=== PATIENT | male | born 1945 | race Caucasian/White ===

== ENCOUNTER → 2016-05-15 | Outpatient (CLI) | payer OTHER, MEDICARE | LOC: M WUC 14:21 | PROVIDERS: ATTEND Urology | DX: Z12.5 Encounter for screening for malignant neoplasm of prostate (principal) ==

== ENCOUNTER → 2016-06-24 | Outpatient (CLI) | payer OTHER, MEDICARE | LOC: M WUC 15:16 | PROVIDERS: ATTEND Surgery | DX: Z85.038 Personal history of other malignant neoplasm of large intestine (principal) ==

== ENCOUNTER → 2016-11-13 | Outpatient (CLI) | payer OTHER, MEDICARE | LOC: M WUC 14:25 | PROVIDERS: ATTEND Urology | DX: N40.0 Benign prostatic hyperplasia without lower urinary tract symptoms (principal) ==

== ENCOUNTER → 2016-12-22 | Outpatient (CLI) | payer OTHER, MEDICARE ==
[2016-12-22 13:44] LABS: MEAN CORPUSCULAR HEMOGLOBIN 30.5 pg (27.0-33.0); MEAN CORPUSCULAR HGB CONC 31.4 g/dl (32.0-36.5); MEAN CORPUSCULAR VOLUME 97.4 fl (80.0-96.0); RED CELL DISTRIBUTION WIDTH 14.2 % (11.5-14.5); WHITE BLOOD COUNT 11.7 10^3/uL (4.0-10.0)
[2016-12-22 13:59] LABS: ANION GAP 4 MEQ/L (8-16); AST/SGOT 16 U/L (15-37); BLOOD UREA NITROGEN 22 MG/DL (7-18); CALCIUM LEVEL 9.5 MG/DL (8.8-10.2); CARBON DIOXIDE LEVEL 32 MEQ/L (21-32); CHLORIDE LEVEL 107 MEQ/L (98-107); CREATININE FOR GFR 1.32 MG/DL (0.70-1.30); FOLATE > 24.0 NG/ML (>5.4); GLOMERULAR FILTRATION RATE 57.3 (>49); GLUCOSE, FASTING 157 MG/DL (80-110); POTASSIUM SERUM 4.8 MEQ/L (3.5-5.1); SODIUM LEVEL 143 MEQ/L (136-145); VITAMIN B12 LEVEL 625 PG/ML (247-911)
[2016-12-22 14:00] LABS: ALBUMIN 3.2 GM/DL (3.2-5.2); ALBUMIN/GLOBULIN RATIO 0.84 (1.00-1.93); ALKALINE PHOSPHATASE 89 U/L (45-117); ALT/SGPT 22 U/L (12-78); BILIRUBIN,TOTAL 0.5 MG/DL (0.2-1.0); CHOLESTEROL LEVEL 169 MG/DL (<200); FREE T4 0.94 NG/DL (0.76-1.46); MAGNESIUM LEVEL 1.7 MG/DL (1.8-2.4); TRIGLYCERIDES LEVEL 146 MG/DL (<150); URIC ACID 4.9 MG/DL (3.5-7.2)
== END ==
LOC: M WUC 09:45
PROVIDERS: ATTEND Internal Medicine Cardiovascular Disease
DX: E11.9 Type 2 diabetes mellitus without complications (principal); I10 Essential (primary) hypertension; E78.5 Hyperlipidemia, unspecified; I85.00 Esophageal varices without bleeding

== ENCOUNTER → 2017-01-07 | Outpatient (CLI) | payer OTHER, MEDICARE | LOC: M WUC 14:17 | PROVIDERS: ATTEND Surgery | DX: C18.9 Malignant neoplasm of colon, unspecified (principal) ==

== ENCOUNTER → 2017-06-18 | Outpatient (CLI) | payer OTHER, MEDICARE ==
[2017-06-18 16:57] LABS: CARCINOEMBRYONIC ANTIGEN < 0.5 NG/ML (<2.5)
== END ==
LOC: M WUC 11:04
DX: C18.6 Malignant neoplasm of descending colon (principal)
CPT/HCPCS: 82378

== ENCOUNTER → 2017-07-26 | Outpatient (CLI) | payer OTHER, MEDICARE ==
[2017-07-26 12:09] LABS: HEMATOCRIT 39.4 % (42.0-52.0); HEMOGLOBIN 12.8 g/dl (13.5-17.5); MEAN CORPUSCULAR HEMOGLOBIN 31.2 pg (27.0-33.0); MEAN CORPUSCULAR HGB CONC 32.5 g/dl (32.0-36.5); MEAN CORPUSCULAR VOLUME 96.1 fl (80.0-96.0); PLATELET COUNT, AUTOMATED 274 10^3/uL (150-450); RED CELL DISTRIBUTION WIDTH 13.5 % (11.5-14.5); WHITE BLOOD COUNT 11.7 10^3/uL (4.0-10.0)
[2017-07-26 12:23] LABS: ESTIMATED AVERAGE GLUCOSE 151 MG/DL (60-110); HEMOGLOBIN A1c 6.9 %
[2017-07-26 12:24] LABS: APPEARANCE, URINE HAZY (CLEAR); BACTERIA, URINE AUTO NEGATIVE (NEGATIVE); BILIRUBIN, URINE AUTO NEGATIVE (NEGATIVE); BLOOD, URINE BLOOD NEGATIVE (NEGATIVE); CALCIUM OXALATE CRYSTALS SMALL; COLOR, URINE YELLOW (YELLOW); GLUCOSE, URINE (UA) AUTO NEGATIVE (NEGATIVE); KETONE, URINE AUTO NEGATIVE (NEGATIVE); LEUKOCYTE ESTERASE, URINE AUTO NEGATIVE (NEGATIVE); MUCUS, URINE SMALL (NEGATIVE); NITRITE, URINE AUTO POSITIVE (NEGATIVE); PROTEIN, URINE AUTO 1+ mg/dL (NEGATIVE); RBC, URINE AUTO 0 /HPF (0-3); SPECIFIC GRAVITY URINE AUTO 1.024 (1.002-1.035); SQUAMOUS EPITHELIAL CELL UR AU 1 /HPF (0-6); UROBILINOGEN, URINE AUTO 0.2 mg/dL (0.0-2.0); WBC, URINE AUTO 9 /HPF (0-3)
[2017-07-26 12:54] LABS: ALBUMIN 3.1 GM/DL (3.2-5.2); ALBUMIN/GLOBULIN RATIO 0.79 (1.00-1.93); ALKALINE PHOSPHATASE 87 U/L (45-117); ALT/SGPT 20 U/L (12-78); ANION GAP 8 MEQ/L (8-16); AST/SGOT 20 U/L (7-37); BILIRUBIN,TOTAL 0.5 MG/DL (0.2-1.0); BLOOD UREA NITROGEN 20 MG/DL (7-18); CALCIUM LEVEL 9.1 MG/DL (8.8-10.2); CARBON DIOXIDE LEVEL 28 MEQ/L (21-32); CHLORIDE LEVEL 106 MEQ/L (98-107); CHOLESTEROL LEVEL 172 MG/DL (<200); CHOLESTEROL RISK RATIO 2.915 (<5); CREATININE FOR GFR 1.19 MG/DL (0.70-1.30); GLOMERULAR FILTRATION RATE > 60.0 (>49); GLUCOSE, FASTING 162 MG/DL (70-100); HDL CHOLESTEROL 59 MG/DL (>40); NON-HDL-C 113 MG/DL; POTASSIUM SERUM 4.4 MEQ/L (3.5-5.1); SODIUM LEVEL 142 MEQ/L (136-145); TRIGLYCERIDES LEVEL 180 MG/DL (<150)
== END ==
LOC: M WUC 10:21
DX: D64.9 Anemia, unspecified (principal); E78.00 Pure hypercholesterolemia, unspecified; E03.9 Hypothyroidism, unspecified
CPT/HCPCS: 84443

== ENCOUNTER → 2017-11-30 | Outpatient (CLI) | payer OTHER, MEDICARE ==
[2017-12-03 00:07] LABS: PSA TOTAL 0.1 ng/mL (0.0-4.0)
== END ==
LOC: M WUC 11:03
DX: N40.0 Benign prostatic hyperplasia without lower urinary tract symptoms (principal)
CPT/HCPCS: 84154

== ENCOUNTER → 2017-12-23 | Outpatient (CLI) | payer OTHER, MEDICARE ==
[2017-12-24 11:08] LABS: CARCINOEMBRYONIC ANTIGEN 0.7 NG/ML (<2.5)
== END ==
LOC: M WUC 14:47
DX: C18.9 Malignant neoplasm of colon, unspecified (principal)
CPT/HCPCS: 82378

== ENCOUNTER 2018-07-22 15:57 | Inpatient (IN) | payer MEDICARE, OTHER ==
[~2018-07-22] VITALS: Ht 193 cm; Wt 184.4 kg
[2018-07-22 16:45] LABS: BASO # 0.1 10^3/uL (0.0-0.2); BASO % 0.7 % (0.0-1.0); EOS # 0.5 10^3/uL (0.0-0.50); EOS % 3.4 % (0.0-3.0); HEMATOCRIT 39.9 % (42.0-52.0); LYMPH # 3.1 10^3/uL (1.5-4.5); LYMPH % 22.5 % (24.0-44.0); MEAN CORPUSCULAR HEMOGLOBIN 31.9 pg (27.0-33.0); MEAN CORPUSCULAR HGB CONC 32.6 g/dl (32.0-36.5); MEAN CORPUSCULAR VOLUME 97.8 fl (80.0-96.0); MONO # 0.8 10^3/uL (0.0-0.8); NEUTROPHILS # 9.3 10^3/uL (1.8-7.7); NEUTROPHILS % 66.8 % (36.0-66.0); PLATELET COUNT, AUTOMATED 307 10^3/uL (150-450); RED BLOOD COUNT 4.08 10^6/uL (4.30-6.10); WHITE BLOOD COUNT 13.9 10^3/uL (4.0-10.0)
[2018-07-22] MEDS: NS 1,000 ML IV SCH ×2 (16:47→23:35)
[2018-07-22 16:48] LABS: VENOUS BASE EXCESS -2.6 (-2.0-2.0); VENOUS HCO3 23.7 MEQ/L (23.0-27.0); VENOUS O2 SATURATION 98.6 % (60.0-80.0); VENOUS PARTIAL PRESSURE CO2 46.6 mmHg (38.0-50.0); VENOUS PARTIAL PRESSURE O2 139.3 mmHg (30.0-50.0); VENOUS PH 7.324 UNITS (7.330-7.430); VENOUS STANDARD HCO3 22.4 MEQ/L; VENOUS TOTAL CO2 25.1 MEQ/L (24.0-28.0)
[2018-07-22] MEDS ORDERED: ONDANSETRON 4MG/2ML VIAL (J2405) IV ONE (17:00)
[2018-07-22] MEDS ORDERED: NS 1,000 ML IV ONE (17:00)
--- NOTE | 2018-07-22 17:16 | REP ---
CT Head without contrast HISTORY: Nausea COMPARISON: None Areas of decreased attenuation are present in the periventricular white matter. This represents small-vessel ischemic disease. There is no intraparenchymal hemorrhage, acute infarct, mass or midline shift. The ventricular system and cortical sulci are dilated consistent with minimal volume loss. There is no extra cerebral collection. There is no fracture. Mucosal thickening is present in the left sphenoid sinus. IMPRESSION: 1. Small vessel ischemic disease. 2. Minimal volume loss. Electronically Signed by Garret Carrillo MD 07/22/2018 05:07 P
[2018-07-22 17:17] LABS: ALBUMIN 3.1 GM/DL (3.2-5.2); ALT/SGPT 21 U/L (12-78); BILIRUBIN,DIRECT 0.2 MG/DL (0.0-0.2); BILIRUBIN,TOTAL 0.5 MG/DL (0.2-1.0); BLOOD UREA NITROGEN 22 MG/DL (7-18); CALCIUM LEVEL 8.8 MG/DL (8.8-10.2); CARBON DIOXIDE LEVEL 27 MEQ/L (21-32); CHLORIDE LEVEL 105 MEQ/L (98-107); CREATININE FOR GFR 1.22 MG/DL (0.70-1.30); GLOMERULAR FILTRATION RATE > 60.0 (>42); GLUCOSE, FASTING 245 MG/DL (70-100); LIPASE 140 U/L (73-393); POTASSIUM SERUM 4.5 MEQ/L (3.5-5.1); SODIUM LEVEL 139 MEQ/L (136-145); TOTAL PROTEIN 7.4 GM/DL (6.4-8.2)
--- NOTE | 2018-07-22 17:31 | REP ---
Chest one-view HISTORY: Nausea Comparison: 12/25/2015 An increase in interstitial markings is present in the lungs consistent with chronic interstitial change. The heart is normal in size. The pulmonary vasculature is normal in appearance. Impression: Chronic interstitial change. Electronically Signed by Garret Carrillo MD 07/22/2018 05:23 P
[2018-07-22] MEDS ORDERED: ISOVUE-370 76% 100ML VIAL (Q9967) As Ordered ONE (17:51)
--- NOTE | 2018-07-22 19:33 | REPVR ---
EXAM: CT Angiography Chest With Contrast EXAM DATE/TIME: 07/22/2018 6:14 PM CLINICAL HISTORY: 72 years old, male; Signs and symptoms; Other: Hypoxia; Patient HX: HX pe TECHNIQUE: Imaging protocol: Axial computed tomographic angiography images of the chest with intravenous contrast using CT angiography protocol. Coronal and sagittal reformatted images were created and reviewed. 3D rendering: MIP reconstructed images were created and reviewed. Radiation optimization: All CT scans at this facility use at least one of these dose optimization techniques: automated exposure control; mA and/or kV adjustment per patient size (includes targeted exams where dose is matched to clinical indication); or iterative reconstruction. Contrast material: ISOVUE 370; Contrast volume: 100 ml; Contrast route: IV; COMPARISON: CR PORTABLE CHEST X-RAY 07/22/2018 5:01 PM FINDINGS: Pulmonary arteries: Normal. No pulmonary emboli. Aorta: Normal. No aortic aneurysm. No aortic dissection. Lungs: Calcified granuloma in the anterior segment of the right upper lobe. Mosaic perfusion abnormality seen diffusely in both lungs. Scattered thickening of the interlobular septa bilaterally particularly at the lung bases. Pleural space: Calcified pleural plaques are noted bilaterally. Heart: Coronary artery calcifications present. Liver: The liver surface is nodular. Gallbladder and bile ducts: Gallstones is seen in the gallbladder. Spleen: Multiple calcified granulomas in the spleen. Lymph nodes: Unremarkable. No enlarged lymph nodes. Bones/joints: Unremarkable. No acute fracture. Soft tissues: Unremarkable. Kidneys: 1.7 cm nonobstructing calculus in the midportion of the right kidney Vascular: Stent is suggested in the superior mesenteric artery IMPRESSION: 1. No acute pulmonary emboli. 2. Asbestos-related pleural disease. 3. Mild interstitial lung disease could represent early asbestosis. 4. Mosaic perfusion abnormality noted in both lungs. Differential diagnostic considerations include air trapping, chronic venoocclusive disease and bronchiolitis 5. Gallstones. 6. Nodular liver suggest cirrhosis. 7. 1.7 cm nonobstructing calculus in the right kidney Electronically signed by: Sofia Reid On 07/22/2018 19:33:27 PM
--- NOTE | 2018-07-22 19:43 | REPVR ---
EXAM: CT Abdomen and Pelvis With Contrast EXAM DATE/TIME: 07/22/2018 6:14 PM CLINICAL HISTORY: 72 years old, male; Signs and symptoms; Other: Hypoxia TECHNIQUE: Imaging protocol: Axial computed tomography images of the abdomen and pelvis with intravenous contrast. Coronal and sagittal reformatted images were created and reviewed. Radiation optimization: All CT scans at this facility use at least one of these dose optimization techniques: automated exposure control; mA and/or kV adjustment per patient size (includes targeted exams where dose is matched to clinical indication); or iterative reconstruction. Contrast material: ISOVUE 370; Contrast volume: 100 ml; Contrast route: IV; COMPARISON: No relevant prior studies available. FINDINGS: Lungs: Thickening of the interlobular septa at the lung bases. Pleural space: Bilateral pleural calcifications noted. ABDOMEN: Liver: The liver surface is nodular. Gallbladder and bile ducts: Gallstones are seen in the gallbladder. Pancreas: Normal. No ductal dilation. Spleen: Calcified granulomas is seen in the spleen. Adrenals: Normal. No mass. Kidneys and ureters: 1.9 cm calcification seen in the upper right kidney. No hydronephrosis. 1.5 cm simple cyst in the lower pole of the left kidney. Stomach and bowel: Normal. No obstruction. No mucosal thickening. Appendix: No evidence of appendicitis. PELVIS: Bladder: Unremarkable as visualized. Reproductive: Unremarkable as visualized. ABDOMEN and PELVIS: Intraperitoneal space: Normal. No free air. No significant fluid collection. Bones/joints: No acute fracture. No dislocation. Soft tissues: There is an umbilical hernia containing fat. The hernia measures 1.6 cm at its base with no evidence of strangulation. There is a fluid collection noted within the anterior abdominal wall beginning at approximately the level of the symphysis pubis measuring 9.5 x 6 x 8.1 cm.. The fluid collection has a density measurement of 35H. There is thickening of the overlying skin and a small amount of inflammatory change within the fat anterior and to the right of the mass. Vasculature: Normal. No abdominal aortic aneurysm. Lymph nodes: Normal. No enlarged lymph nodes. IMPRESSION: 1. Loculated hyperdense fluid collection noted in the subcutaneous fat of the lower abdominal wall at the level of the symphysis pubis. This could represent an old hematoma/seroma. Infection not excluded. 2. Nodular liver suggest cirrhosis. 3. 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 4. Nonobstructing calculus in the right kidney. 5. Simple cysts in left kidney. 6. Gallstones. COMMENT: Consistent with the [employer]'s Incidental Findings Committee Report (J Am Vicky Radiol 2010): Unless the patient's specific circumstances suggest otherwise, any liver lesion 0.5 cm or less, any cystic kidney lesion less than 1.0 cm, and/or any adrenal lesion 1.0 cm or less not otherwise characterized in this report as possessing suspicious or indeterminate imaging features is/are highly likely to be benign and do not require follow-up imaging or biopsy. Electronically signed by: Sofia Reid On 07/22/2018 19:43:10 PM
[2018-07-22 20:15] LABS: INFLUENZA A AMPLIFICATION NEGATIVE (NEGATIVE); INFLUENZA B AMPLIFICATION NEGATIVE (NEGATIVE)
[2018-07-22] MEDS: DABIGATRAN ETEXILATE 75 MG CAP (PRADAXA) PO SCH (21:00)
[2018-07-22] MEDS ORDERED: GLUCAGON FOR INJ 1 MG VIAL (J1610) SC PRN (21:30)
[2018-07-22] MEDS ORDERED: DEXTROSE 50% 50 ML SYRINGE IV PRN (21:30)
[2018-07-22] MEDS ORDERED: GLUCOSE 4 GM CHEW TABLET PO PRN (21:30)
[2018-07-22] MEDS ORDERED: PANT40TA3 PO (21:58)
[2018-07-22] MEDS ORDERED: PREG100CA PO (21:58)
[2018-07-22] MEDS ORDERED: ACET500T15 PO (21:58)
[2018-07-22] MEDS ORDERED: LOSA100T50 PO (21:58)
[2018-07-22] MEDS ORDERED: PRAV20TA2 PO (21:58)
[2018-07-22] MEDS ORDERED: SPIR1CAP INH (21:58)
[2018-07-22] MEDS ORDERED: KLOR10TA76 PO (21:58)
[2018-07-22] MEDS ORDERED: ATEN100T PO (21:58)
[2018-07-22] MEDS ORDERED: METF500T13 PO (21:58)
[2018-07-22] MEDS ORDERED: GLIM4TAB PO (21:58)
[2018-07-22] MEDS ORDERED: HUMA100I5 SC (21:58)
[2018-07-22] MEDS ORDERED: FLOM0.4C39 PO (21:58)
[2018-07-22] MEDS ORDERED: JANU100T PO (21:58)
[2018-07-22] MEDS ORDERED: PROB500T29 PO (21:58)
[2018-07-22] MEDS ORDERED: FINA5TAB2 PO (21:58)
[2018-07-22] MEDS ORDERED: LANTINJ4 SC (21:58)
[2018-07-22] MEDS ORDERED: PRAD75CA5 PO (21:58)
[2018-07-22] MEDS ORDERED: ZOLO100T PO (21:58)
[2018-07-22] MEDS ORDERED: NORV5TAB PO (21:58)
[2018-07-22 22:00] VITALS: BP 140/78
[2018-07-22] MEDS: HumaLOG INSULIN (NovoLOG) PER UNIT SC SCH (23:29)
[2018-07-23] MEDS ORDERED: ACETAMINOPHEN 500 MG TAB PO PRN (02:15)
[2018-07-23] MEDS: PANTOPRAZOLE 40MG TAB (PROTONIX) PO SCH ×2 (02:51→20:51)
[2018-07-23] MEDS: FINASTERIDE 5 MG TAB PO SCH ×2 (02:51→20:51)
[2018-07-23] MEDS: TAMSULOSIN 0.4 MG CAP PO SCH ×2 (02:51→20:51)
[2018-07-23] MEDS: PREGABALIN 100 MG CAP (LYRICA) PO SCH ×3 (02:51→20:51)
[2018-07-23] MEDS: amLODIPine 5 MG TAB PO SCH ×2 (02:54→20:52)
[2018-07-23 05:23] VITALS: O2SAT 98
[2018-07-23 06:00] VITALS: BP 141/68
--- NOTE | 2018-07-23 06:40 | ECGEPIP ---
Stationary ECG Study [facility] - ED Test Date: 2018-07-22 Pat Name: JENNIFER ABRAMS Department: Room: - Gender: M Hand Blocker: pmo : 1945 Requested By: Dinorah Avery Order Number: [id number] Reading MD: Sloane Canales Measurements Intervals [place] Rate: 68 P: UT: 0 QRS: 39 QRSD: 110 T: 47 QT: 414 QTc: 441 Interpretive Statements ATRIAL FIBRILLATION ABNORMAL RHYTHM NONSPECIFIC ST T WAVE CHANGES NO OLD ECG FOR COMPARISON Electronically Signed On 07-23-2018 6:39:49 EDT by Sloane Canales
[2018-07-23 07:09] LABS: HEMATOCRIT 36.1 % (42.0-52.0); HEMOGLOBIN 11.4 g/dl (13.5-17.5); MEAN CORPUSCULAR HEMOGLOBIN 31.5 pg (27.0-33.0); MEAN CORPUSCULAR HGB CONC 31.6 g/dl (32.0-36.5); MEAN CORPUSCULAR VOLUME 99.7 fl (80.0-96.0); PLATELET COUNT, AUTOMATED 267 10^3/uL (150-450); RED BLOOD COUNT 3.62 10^6/uL (4.30-6.10); WHITE BLOOD COUNT 13.8 10^3/uL (4.0-10.0)
[2018-07-23 07:27] LABS: ALBUMIN 2.9 GM/DL (3.2-5.2); ALT/SGPT 18 U/L (12-78); BILIRUBIN,TOTAL 0.4 MG/DL (0.2-1.0); BLOOD UREA NITROGEN 20 MG/DL (7-18); CALCIUM LEVEL 8.4 MG/DL (8.8-10.2); CARBON DIOXIDE LEVEL 28 MEQ/L (21-32); CHLORIDE LEVEL 107 MEQ/L (98-107); CREATININE FOR GFR 1.19 MG/DL (0.70-1.30); GLOMERULAR FILTRATION RATE > 60.0 (>42); GLUCOSE, FASTING 187 MG/DL (70-100); POTASSIUM SERUM 4.4 MEQ/L (3.5-5.1); SODIUM LEVEL 140 MEQ/L (136-145)
[2018-07-23 08:36] LABS: ERYTHROCYTE SEDIMENTATION RATE 50 mm/hr (0-20)
[2018-07-23] MEDS: HumaLOG INSULIN (NovoLOG) PER UNIT SC SCH ×4 (08:58→20:52)
[2018-07-23] MEDS: SERTRALINE 100 MG TAB PO SCH (08:59)
[2018-07-23] MEDS: DABIGATRAN ETEXILATE 75 MG CAP (PRADAXA) PO SCH ×2 (08:59→20:51)
[2018-07-23] MEDS ORDERED: PRAVASTATIN 20 MG TAB PO SCH (09:00)
[2018-07-23] MEDS: LOSARTAN 50 MG TAB PO SCH (09:02)
[2018-07-23] MEDS: ATENOLOL 50 MG TAB PO SCH (09:02)
[2018-07-23] MEDS ORDERED: ONDANSETRON 4MG/2ML VIAL (J2405) IV PRN (09:30)
[2018-07-23] MEDS: NS 1,000 ML IV SCH ×3 (09:33→17:23)
[2018-07-23] MEDS: METOCLOPRAMIDE INJ 10MG/2ML VIAL (J2765) IV PRN (10:38)
[2018-07-23] MEDS: TIOTROPIUM INHALER/CAPSULE (SPIRIVA) INH SCH (11:27)
[2018-07-23 11:29] VITALS: O2SAT 93
--- NOTE | 2018-07-23 13:29 | HPE ---
DATE OF ADMISSION: 07/22/2018 CHIEF COMPLAINT: Episode of confusion. HISTORY OF PRESENTING ILLNESS: 72-year-old gentleman with multiple comorbidities who was brought to emergency department for complaint of one episode of confusion. Patient was having lunch while sitting in a recliner, suddenly he felt that he was feeling hot, his noticed that his color was turning pale after that patient was confused and was not able to answer any question. During this episode, patient stated that he had episode of blurry vision and he felt that his gait was unsteady when he tried to walk to the restroom. There was no other associated symptom. In the emergency room (ER), patient was found with vitals of temperature 98.0, heart rate 76, blood pressure 164/74, respiratory rate 16, and SpO2 89 that improved with 1 liter of supplemental oxygen to 94%. CT head did not show any acute pathology. Chest x-ray did not show any acute pathology. CT chest did not show any acute pathology. CT abdomen and pelvis was suggestive of subcutaneous fluid collection of the lower anterior abdominal wall. In the emergency room, patient was found vomiting and he had three episodes of vomiting that resolved with Zofran. Hospitalist service was consulted to admit the patient for further management and observation. Patient was seen and examined at bedside. Patient was resting comfortably in the bed. at bedside. Patient stated that he is feeling fine and his complaint of generalized weakness, nausea, vomiting, blurry vision, unsteady gait, and malaise has completely resolved. At the time of examination, patient did not have any physical complaint. PAST MEDICAL HISTORY: 1. Hypertension. 2. Hyperlipidemia. 3. BPH. 4. Diabetes mellitus, type 2. 5. Peripheral neuropathy. 6. Depression. 7. Anxiety. 8. Panic attacks. 9. Chronic obstructive pulmonary disease (COPD). 10. Gastroesophageal reflux disease (GERD). 11. Gout. 12. Obesity. 13. Pulmonary embolism on oral Pradaxa. PAST SURGICAL HISTORY: 1. Bilateral inguinal hernia repair. 2. Cardiac catheterization. As per patient, his coronary arteries were clean and he did not require any stent placement and it was done for episode of questionable shortness of breath and chest pain. 3. Colon cancer. Patient did not require any chemo or radiation therapy, and he is on surveillance colonoscopy. Patient had colon resection in 2014. 4. Left ankle surgery after an injury that have plate and screws in place. 5. cysto urethrotomy ALLERGIES: NO KNOWN DRUG ALLERGIES. HOME MEDICATIONS: Reviewed. Please refer to permanent medical record. SOCIAL HISTORY: Former smoker, denied alcohol intake or illicit drug abuse, independent for activities of daily living, lives with . FAMILY HISTORY: Reviewed. Noncontributory. REVIEW OF SYSTEMS: 10-point review of system was performed and it was negative except as per history of present illness (HPI). PHYSICAL EXAMINATION: GENERAL: Comfortable, not in acute distress. HEENT: Bilateral pupils equal, round, reactive to light and accommodation. Oral mucosa moist. NECK: Supple. RESPIRATORY SYSTEM: Clear to auscultation but bilateral decreased breath sounds. No added sounds CARDIOVASCULAR SYSTEM: Regular rate and rhythm. S1, S2 positive. ABDOMEN: Obese abdomen. Soft. Nontender. EXTREMITIES: Bilateral lower extremity pitting pedal edema, chronic venous stasis changes. SKIN: No rash noted. CENTRAL NERVOUS SYSTEM: No focal deficit. Patient alert and oriented to time, place and person. Gait normal. PSYCHIATRIC: Mood normal. Laboratory tests reviewed. White count 13.9, hemoglobin 13.0, platelets 307. Sodium 139, potassium 4.5, BUN 22, creatinine 1.22, blood glucose 245, lactic acid 2.1. Imaging studies reviewed. Urinalysis (UA) not a clean catch. ASSESSMENT: 72-year-old gentleman was brought to emergency department for complaint of one episode of generalized malaise, confusion associated with nausea and three episodes of vomiting. When patient came to the emergency department, he was found hypoxic with SpO2 of 89. Patient was placed on supplemental oxygen and given IV Zofran. After that all symptoms resolved. While examining the patient at bedside in emergency department off oxygen, patient 's oxygen saturation dropped to mid 80s. Patient stated that he does have history of obstructive sleep apnea and uses continuous positive airway pressure (CPAP), but he did not have any recent sleep study or any studies regarding evaluation for requirement of supplemental oxygen. Patient might have had one episode of transient ischemic attack (TIA) that might be related to chronic hypoxia. IMPRESSION: Questionable episode of transient ischemic attack. PLAN: 1. TIA: Neuro checks. 2. We will consider imaging studies depending on clinical course over next 24 hours. Patient had imaging studies with IV contrast. We cannot repeat any studies with contrast at this time. 3. Patient's weight is more than the weight limit of MRI machine. We cannot perform any MRI study, and he also has metal and screws in place in left ankle. 4. History of obstructive sleep apnea: Will continue CPAP. 5. Chronic hypoxic respiratory failure: Patient might have chronic hypoxic respiratory failure secondary to COPD and NAHUM; he did not have any recent studies for that. Will continue supplemental oxygen. 6. Diabetes mellitus, type 2: Insulin sliding scale and home insulin. 7. Hypertension: Home medication. 8. BPH: Home medication. 9. Obesity: Supportive care. 10. Hyperlipidemia: Home medication. 11. Peripheral neuropathy: Home medication. 12. Depression: Home medication. 13. COPD: Home medication. 14. GERD: Home medication. 15. Gout: Home medication. 16. Subcutaneous fluid collection in the lower abdominal wall: ER discussed with on-call surgery team. No acute intervention required at this time. Outpatient followup was recommended. We discussed this with the patient and patient stated that he would like to followup with his own surgeon, Dr. Eulalio Flores. He does have a followup appointment with Dr. Flores on 08/02/2018. 17. Colon cancer: Patient to followup with his primary medical doctor regarding continuation of screening colonoscopy. TABBY
[2018-07-23 14:00] VITALS: BP 175/79
--- NOTE | 2018-07-23 14:04 | IPNPDOC ---
Date Seen The patient was seen on 07/23/18. Progress Note SUBJECTIVE:Patient severely weak and slide down to the floor with the help of the staffs after BM. No diarrhea. Complaints of N/V. Patient's who brought patient to the emergency room after patient complained of vision loss and n/v that started yesterday. He had felt unwell and weak. No fever, cough, abdominal pain, diarrhea, dysuria, or unilateral weakness. No clear cause but TIA/CVA seem s less likely but he was noted have horizontal nystagmus. Spoke to Neurology, suspect vasovagal and less likely TIA, rec repeat CT head, CTA head&neck, and TIA work up. In addition alternative ddx. Pt also on anticoagulant and statin. OBJECTIVE PHYSICAL EXAMINATION: VITAL SIGNS: Please see below GENERAL APPEARANCE: weak HEENT: Normocephalic, PERRLA, Mucous moist, horizontal nystagmus CARDIOVASCULAR: S1,S2, pulse present, regularly, regular, no obvious murmur LUNGS: Equal air entry b/l, no wheezes or crackle ABDOMEN: Soft, BS present, no tenderness, no guarding GENITOURINARY: No Ewing EXTREMITIES: B/L no edema, capillary refill present SKIN: Warm, No fever PSYCHIATRIC: Normal mood and affect for current situation NEUROLOGICAL: Cranial nerves grossly intact Alert, not alert Answer both question correctly Difficulty Follow both task due to weakness Normal Gaze No visual loss at this time No facial palsy upper and lower ext weakness No limb ataxia Sensory normal No aphasia No Dysarthria No neglect LABORATORY DATA, IMAGING STUDIES, MICROBIOLOGY: Please see below. 72-year-old gentleman with multiple comorbidities who was brought to emergency department for complaint of one episode of confusion. Patient was sitting and having lunch in recliner and suddenly he felt that he was feeling hot and his noticed that his color was turning pale and patient was confused and was not able to answer any question. During this episode, patient stated that he had episode of blurry vision and he felt that his gait was unsteady when he tried to walk to the restroom. There was no other associated symptom. Assessment and Plan: 72 yr old M with DM, HTN, on pradaxa, BPH, GERD, peripheral neuropathy, Depression, NAHUM on CPAP and complaint, ?COPD and not oxygen dependent, PE, ?A.fib came to ER for intermittent episodes of blurry vision and blindness that start on 07/22/18 around 3pm and subsequent N/V and confusion. No abdominal pain, fever, or diarrhea. Patient admitted for TIA and incidental abnormals CT abdomen finding and weakness. N/v, intermittent vision loss, weakness, horizontal nystagmus -nop clear cause, possibly vasovagal -R/o TIA -CT of the head: Small vessel ischemic disease, minimal volume loss -carotid doppler: ordered -Echo:ordered -due to patient's size and metal screw in left ankle pt unable to get MRI brain thus CTA head and neck ordered -Spoke to Dr. Sweet, does not suspect neurological cause, rec CTA head and neck and if no improvement will gladly see. Informed by radiology pt can not have CTA until later tonight as her had contrast previously and need to wait 24hr after last contrast. Endorsed to night team for report follow up. -lipid profile: ordered -supportive tx w anti-emetics, ivf, oxygen -orthostatic vital -if n/v intractable N/v, GI PRN Asym bradycardia -limit zofran and reglan if possible -atenolol with paramenter R/o infx -UA neg uti -Blood culture:pending -CXR:Chronic interstitial change. -CT of the chest: Negative for PE, asbestos-related pleural disease, mild interstitial lung disease could represent early asbestosis. Mosaic perfusion abnormality noted in both lungs. Differential diagnostic consideration include air trapping, chronic venoocclusive disease, and bronchiolitis. Gallstone. No dular liver suggestive of cirrhosis. 1.7 cm nonobstructing calculus in the right kidney -Abnml CT abdominal:1. Loculated hyperdense fluid collection noted in the subcutaneous fat of the lower abdominal wall at the level of the symphysis pubis. This could represent an old hematoma/seroma. Infection not excluded. 2. Nodular liver suggest cirrhosis. 3. 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 4. Nonobstructing calculus in the right kidney. 5. Simple cysts in left kidney. 6. Gallstones. -Subcutaneous fluid collection in the lower abdominal wall: ER discussed with on-call surgery team. No acute intervention required at this time. Outpatient followup was recommended. Patient would like to followup with his own surgeon, Dr. Eulalio Flores. He does have a followup appointment with Dr. Flores on 08/02/2018 -Monitor for fever and abx PRN DM & peripheral neuropathy -FS and coverage -insulins, but hold PO med -pregabalin PE, ?Afib hx -On Pradaxa -Atenolol NAHUM, COPD -Oxygen -Spiriva -home CPAP use HTN -amlodipine, atenolol with parameter ,losartan BPH -Flomax, finasteride Depression -Zoloft GERD -pantoprazole HLD -statin Abnml cta chest:mild interstitial lung disease could represent early asbestosis. Mosaic perfusion abnormality noted in both lungs. Differential diagnostic consideration include air trapping, chronic venoocclusive disease, and bronchiolitis.Nodular liver suggestive of cirrhosis. 1.7 cm nonobstructing calculus in the right kidney -follow up with PCP Abnml CT abdominal:1. Loculated hyperdense fluid collection noted in the subcutaneous fat of the lower abdominal wall at the level of the symphysis pubis. This could represent an old hematoma/seroma. Infection not excluded. 2. Nodular liver suggest cirrhosis. 3. 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 4. Nonobstructing calculus in the right kidney. 5. Simple cysts in left kidney. 6. Gallstones. -Follow up with PCP, followup with his own surgeon, Dr. Eulalio Flores. hx Colon cancer: Patient to followup with his own doctor for continue screening PT/OT DVT prop with Pradaxa VS, I&O, 24H, Fishbone Vital Signs/I&O Vital Signs Date Time Temp Pulse Resp B/P (MAP) Pulse Ox O2 Delivery O2 Flow Rate FiO2 07/23/18 11:29 93 Nasal Cannula 2.0 07/23/18 09:02 145/66 07/23/18 09:02 63 07/23/18 06:00 97.8 19 I&O- Last 24 Hours up to 6 AM 07/23/18 06:00 Intake Total 1250 ml Balance 1250 ml Laboratory Data 24H LABS Laboratory Tests 2 07/22/18 16:39: Immature Granulocyte % (Auto) 0.6, White Blood Count 13.9H, Red Blood Count 4.08L, Hemoglobin 13.0L, Hematocrit 39.9L, Mean Corpuscular Volume 97.8H, Mean Corpuscular Hemoglobin 31.9, Mean Corpuscular Hemoglobin Concent 32.6, Red Cell Distribution Width 13.2, Platelet Count 307, Neutrophils (%) (Auto) 66.8H, Lymphocytes (%) (Auto) 22.5L, Monocytes (%) (Auto) 6.0H, Eosinophils (%) (Auto) 3.4H, Basophils (%) (Auto) 0.7, Neutrophils # (Auto) 9.3H, Lymphocytes # (Auto) 3.1, Monocytes # (Auto) 0.8, Eosinophils # (Auto) 0.5, Basophils # (Auto) 0.1, Nucleated Red Blood Cells % (auto) 0.0, Blood Gas Bicarbonate Standard 22.4, Venous Blood pH 7.324L, Venous Blood Partial Pressure CO2 46.6, Venous Blood Partial Pressure O2 139.3H, Venous Blood Total Carbon Dioxide 25.1, Venous Blood HCO3 23.7, Venous Blood Oxygen Saturation 98.6H, Venous Blood Base Excess -2.6L, Anion Gap 7L, Glomerular Filtration Rate > 60.0, Lactic Acid Level 2.1*H, Calcium Level 8.8, Aspartate Amino Transf (AST/SGOT) 20, Alanine Aminotransferase (ALT/SGPT) 21, Alkaline Phosphatase 78, Total Bilirubin 0.5, Direct Bilirubin 0.2, Total Protein 7.4, Albumin 3.1L, Albumin/Globulin Ratio 0.72L, Lipase 140 07/22/18 16:46: Bedside Glucose (Misc Panel) 255H 07/22/18 18:45: Urine Color YELLOW, Urine Appearance HAZY, Urine pH 5.0, Urine Specific [place] 1.020, Urine Protein 2+H, Urine Glucose (UA) 1+H, Urine Ketones NEGATIVE, Urine Blood 3+H, Urine Nitrite NEGATIVE, Urine Bilirubin NEGATIVE, Urine Urobilinogen 0.2, Urine Leukocyte Esterase NEGATIVE, Urine WBC (Auto) 6H, Urine RBC (Auto) TNTCH, Urine Hyaline Casts (Auto) 0, Urine Bacteria (Auto) NEGATIVE, Urine Squamous Epithelial Cells 1, Urine Calcium Oxalate Cryst (Auto) SMALL, Urine Amorphous Sediment SMALLH, Urine Mucus (Auto) SMALL, Urine Sperm (Auto) 07/22/18 19:36: Influenza Type A (RT-PCR) NEGATIVE, Influenza Type B (RT-PCR) NEGATIVE 07/22/18 21:59: Bedside Glucose (Misc Panel) 315H 07/22/18 23:08: Bedside Glucose (Misc Panel) 323H 07/23/18 06:43: Nucleated Red Blood Cells % (auto) 0.0, Erythrocyte Sedimentation Rate 50H, Anion Gap 5L, Glomerular Filtration Rate > 60.0, Lactic Acid Followup at 4 Hours 1.8, Blood Urea Nitrogen 20H, Creatinine 1.19, Sodium Level 140, Potassium Level 4.4, Chloride Level 107, Carbon Dioxide Level 28, Calcium Level 8.4L, Aspartate Amino Transf (AST/SGOT) 14, Alanine Aminotransferase (ALT/SGPT) 18, Alkaline Phosphatase 68, Total Bilirubin 0.4, Total Protein 7.0, Albumin 2.9L, Albumin/Globulin Ratio 0.71L CBC/BMP Laboratory Tests 07/22/18 16:39 Red Blood Count 4.08 L, Mean Corpuscular Volume 97.8 H, Mean Corpuscular Hemoglobin 31.9, Mean Corpuscular Hemoglobin Concent 32.6, Red Cell Distribution Width 13.2, Neutrophils (%) (Auto) 66.8 H, Lymphocytes (%) (Auto) 22.5 L, Monocytes (%) (Auto) 6.0 H, Eosinophils (%) (Auto) 3.4 H, Basophils (%) (Auto) 0.7, Neutrophils # (Auto) 9.3 H, Lymphocytes # (Auto) 3.1, Monocytes # (Auto) 0.8, Eosinophils # (Auto) 0.5, Basophils # (Auto) 0.1 07/23/18 06:43 Red Blood Count 3.62 L, Mean Corpuscular Volume 99.7 H, Mean Corpuscular Hemoglobin 31.5, Mean Corpuscular Hemoglobin Concent 31.6 L, Red Cell Distribution Width 13.3, Calcium Level 8.4 L, Aspartate Amino Transf (AST/SGOT) 14, Alanine Aminotransferase (ALT/SGPT) 18, Alkaline Phosphatase 68, Total Bilirubin 0.4, Total Protein 7.0, Albumin 2.9 L SHERRI SOLIS MD Jul 23, 2018 14:04
[2018-07-23 14:59] VITALS: BP_SYST 171; BP_SYST 175; BP_DIAS 79
[2018-07-23] MEDS ORDERED: NYSTATIN 100,000 UNITS/GM TOPICAL PWD 15 GM TOP PRN (16:00)
[2018-07-23] MEDS ORDERED: ISOVUE-370 76% 100ML VIAL (Q9967) As Ordered ONE (18:00)
[2018-07-23] MEDS: LEVEMIR (INSULIN DETEMIR) 1 UNITS/0.01ML SC SCH (20:51)
[2018-07-23 22:00] VITALS: BP 155/69
[2018-07-24] VITALS (12 sets, daily range): BP systolic 136–182; BP diastolic 64–92; O2SAT 90–98
[2018-07-24] MEDS: NS 1,000 ML IV SCH ×2 (03:28→17:41)
[2018-07-24 06:59] LABS: HEMOGLOBIN 12.4 g/dl (13.5-17.5); MEAN CORPUSCULAR HEMOGLOBIN 31.6 pg (27.0-33.0); MEAN CORPUSCULAR VOLUME 101.8 fl (80.0-96.0); PLATELET COUNT, AUTOMATED 270 10^3/uL (150-450); RED BLOOD COUNT 3.93 10^6/uL (4.30-6.10); WHITE BLOOD COUNT 13.6 10^3/uL (4.0-10.0)
[2018-07-24 07:19] LABS: BLOOD UREA NITROGEN 20 MG/DL (7-18); CALCIUM LEVEL 8.4 MG/DL (8.8-10.2); CARBON DIOXIDE LEVEL 26 MEQ/L (21-32); CHLORIDE LEVEL 108 MEQ/L (98-107); CHOLESTEROL LEVEL 203 MG/DL (<200); CHOLESTEROL RISK RATIO 3.171 (<5); CREATININE FOR GFR 1.11 MG/DL (0.70-1.30); GLOMERULAR FILTRATION RATE > 60.0 (>42); GLUCOSE, FASTING 157 MG/DL (70-100); HDL CHOLESTEROL 64 MG/DL (>40); LDL CHOLESTEROL 109 MG/DL (<100); NON-HDL-C 139 MG/DL; POTASSIUM SERUM 4.5 MEQ/L (3.5-5.1); SODIUM LEVEL 142 MEQ/L (136-145); TRIGLYCERIDES LEVEL 152 MG/DL (<150)
--- NOTE | 2018-07-24 08:12 | REP ---
CT Head without contrast HISTORY: weakness COMPARISON: 07/22/2018 An area of decreased attenuation is present in the inferior right cerebellum consistent with an acute infarction. There is no hemorrhage. Areas of decreased attenuation are present in the basal ganglia. These represent old lacunar infarctions. Areas of decreased attenuation are present in the periventricular white matter. This represents small-vessel ischemic disease. There is no intraparenchymal hemorrhage, acute infarct, mass or midline shift. The ventricular system and cortical sulci are dilated consistent with minimal volume loss. There is no extra cerebral collection. There is no fracture. Mucosal thickening is present in the left maxillary sinus. IMPRESSION: 1. Acute right cerebellar infarction. There is no hemorrhage. 2. Old bilateral basal ganglia lacunar infarctions. 3. Small vessel ischemic disease. 4. Minimal volume loss. Electronically Signed by Garret Carrillo MD 07/24/2018 08:02 A
[2018-07-24] MEDS: TIOTROPIUM INHALER/CAPSULE (SPIRIVA) INH SCH (08:20)
[2018-07-24] MEDS: ASPIRIN 81 MG ENTERIC TAB PO SCH (09:00)
[2018-07-24] MEDS: PRAVASTATIN 20 MG TAB PO SCH (09:35)
[2018-07-24] MEDS: PREGABALIN 100 MG CAP (LYRICA) PO SCH ×2 (09:35→20:41)
[2018-07-24] MEDS: DABIGATRAN ETEXILATE 75 MG CAP (PRADAXA) PO SCH ×2 (09:36→20:41)
[2018-07-24] MEDS: LOSARTAN 50 MG TAB PO SCH (09:36)
[2018-07-24] MEDS: SERTRALINE 100 MG TAB PO SCH (09:36)
[2018-07-24] MEDS: ATENOLOL 50 MG TAB PO SCH (09:37)
[2018-07-24] MEDS: HumaLOG INSULIN (NovoLOG) PER UNIT SC SCH ×4 (09:37→20:32)
--- NOTE | 2018-07-24 10:13 | ECHO ---
DATE OF PROCEDURE: 07/23/2018 REFERRING PROVIDER: Dr. Fanny Lua. PATIENT LOCATION: Room 4234. REASON FOR ECHOCARDIOGRAM: Transient ischemic attack (TIA). 2D MEASUREMENT: IVS - 1.2 cm LV - 5.7 cm LVPW - 1.0 cm LA - 4.5 cm Aorta - 3.9 cm IVC - 2.9 cm DOPPLER MEASUREMENTS: Peak velocity across the aortic valve - 1.1 m/s Peak velocity across the LVOT - 0.92 m/s Mitral E - 1.2. Maximum tricuspid valve velocity - 3.4 m/s 2D COMMENTS: 1. Technically limited study due to poor acoustic windows secondary to body habitus. 2. The left ventricular size may be mildly enlarged. Left ventricular wall thickness and systolic function seems to be normal. The estimated global left ventricular systolic function is 55-60%. 3. Mildly enlarged left atrium. The right atrium and the right ventricle appear to be normal in size in limited views. 4. Mildly dilated aortic root at 3.9 cm. 5. Trace pericardial effusion noted in limited views. 6. The mitral valve as well as the aortic valve, the tricuspid valve appear to be normal. The pulmonic valve and proximal pulmonary artery branches were not well visualized. 7. The inferior vena cava is dilated, central venous pressure mildly elevated. DOPPLER: It detects trace mitral regurgitation and mild tricuspid regurgitation. The calculated pulmonary artery systolic pressure varies between 40-50 mmHg. Assessment of the left ventricular diastolic function was limited, patient seemed to be in atrial fibrillation for the test with a controlled ventricular rate. IMPRESSION: 1. Normal global left ventricular systolic function. There was mild eccentric left ventricular hypertrophy. 2. Assessment of the left ventricular diastolic function was not done because of underlying cardiac arrhythmia, atrial fibrillation noted during the test with a controlled ventricular rate. 3. Mildly enlarged left atrium with trace mitral regurgitation. 4. Mild tricuspid regurgitation with probably moderate pulmonary hypertension. 5. Mildly dilated aortic root at 3.9 cm. 6. Trace pericardial effusion noted in limited views, no evidence of cardiac tamponade. 7. The study was technically limited due to poor acoustic window secondary to body habitus. [facility]
--- NOTE | 2018-07-24 15:39 | REP ---
CT Head without contrast HISTORY: Infarction COMPARISON: 07:30 p.m. 07/23/2018 An area of decreased attenuation is present in the inferior right cerebellum. This represents an acute infarction. There is no hemorrhage. There is no mass effect on the fourth ventricle. Areas of decreased attenuation are present in the the basal ganglia. These represent old lacunar infarctions. Areas of decreased attenuation are present in the periventricular white matter. This represents small-vessel ischemic disease. There is no intraparenchymal hemorrhage, mass or midline shift. The ventricular system the ventricular system and cortical sulci are dilated consistent with minimal volume loss. There is no extra cerebral collection. There is no fracture. Mucosal thickening is present in the left maxillary sinus. IMPRESSION: 1. Acute right cerebellar infarction unchanged compared to the previous study. 2. Old bilateral basal ganglia lacunar infarctions. 3. Small vessel ischemic disease. 4. Minimal volume loss. Electronically Signed by Garret Carrillo MD 07/24/2018 03:31 P
[2018-07-24] MEDS ORDERED: ASPIRIN 81 MG CHEW TABLET PO ONE (16:15)
[2018-07-24 16:36] LABS: HEMOGLOBIN A1c 7.9 %
--- NOTE | 2018-07-24 17:21 | IPNPDOC ---
Date Seen The patient was seen on 07/24/18. Progress Note SUBJECTIVE:Patient today feeling better but still weak. No blurry vision or shortness of breath. But he had asymptomatic bRepeat CT head return showing acute right cerebella infarction. Neurology consult obtained, recommended repeat CT head. Repeat CT head Acute right cerebellar infarction unchanged compared to the previous study. Due to his size he is unable to get an MRI/MRA, plan for open MRI/MRA tomorrow if available. Patient had asymptomatic bradycardia, on atenolol with parameter. OBJECTIVE PHYSICAL EXAMINATION: VITAL SIGNS: Please see below GENERAL APPEARANCE: weak HEENT: Normocephalic, PERRLA, Mucous moist, horizontal nystagmus CARDIOVASCULAR: S1,S2, pulse present, regularly, regular, no obvious murmur LUNGS: Equal air entry b/l, no wheezes or crackle ABDOMEN: Soft, BS present, no tenderness, no guarding GENITOURINARY: No Ewing EXTREMITIES: B/L no edema, capillary refill present SKIN: Warm, No fever PSYCHIATRIC: Normal mood and affect for current situation NEUROLOGICAL: Cranial nerves grossly intact Alert, not alert Answer both question correctly General Weakness Normal Gaze No visual loss at this time No facial palsy upper and lower ext weakness No limb ataxia Sensory normal No aphasia No Dysarthria No neglect LABORATORY DATA, IMAGING STUDIES, MICROBIOLOGY: Please see below. 72-year-old gentleman with multiple comorbidities who was brought to emergency department for complaint of one episode of confusion. Patient was sitting and having lunch in recliner and suddenly he felt that he was feeling hot and his noticed that his color was turning pale and patient was confused and was not able to answer any question. During this episode, patient stated that he had episode of blurry vision and he felt that his gait was unsteady when he tried to walk to the restroom. There was no other associated symptom. Assessment and Plan: 72 yr old M with DM, HTN, on pradaxa, BPH, GERD, peripheral neuropathy, Depression, NAHUM on CPAP and complaint, ?COPD and not oxygen dependent, PE, A.fib came to ER for intermittent episodes of blurry vision and blindness that start on 07/22/18 around 3pm and subsequent N/V and confusion. No abdominal pain, fever, or diarrhea. Patient admitted for TIA and incidental abnormals CT abdomen finding and weakness. CVA, intermittent vision loss, weakness, horizontal nystagmus -4/26/19 CT of the head: Small vessel ischemic disease, minimal volume loss -07/23/18 CT head: 1. Acute right cerebellar infarction. There is no hemorrhage. 2. Old bilateral basal ganglia lacunar infarctions. 3. Small vessel ischemic disease. 4. Minimal volume loss. -07/24/18 CT head:Acute right cerebellar infarction unchanged compared to the previous study. Report noted on 07/23/18. -07/25/18 Ct head: pending -carotid doppler: ordered -Echo:1. nml global lt vent sys fxn. mild eccentric LVH. Mildly enlarged left atrium with trace MR. Mild TR with probably mild pulm HTN. Mildly dilated aortic root at 3.9 cm. Trace pericardial effusion noted in limited views, no evidence of cardiac tamponade. -CTA head and neck: offical report pending, spoke to radiology(sent to [facility] for read last night but have not been read), spoke to radiologist and spoke to Neurology. Report verbally report to neurologist by radiologist. -Spoke to Dr. Sweet: Neurocheck Q2h, open MRI/MRA without contrast -Lipid profile: elevated, statin increased to 40mg -A1c: pending -Thyroid profile: pending -ASA, Statin -orthostatic vital N/v -supportive tx w anti-emetics, ivf, oxygen Asym bradycardia -limit zofran and reglan if possible -atenolol with paramenter -Consult with Dr. Orlando cardiology R/o infx -UA neg uti -Blood culture: NGD -CXR:Chronic interstitial change. -CT of the chest: Negative for PE, asbestos-related pleural disease, mild interstitial lung disease could represent early asbestosis. Mosaic perfusion abnormality noted in both lungs. Differential diagnostic consideration include air trapping, chronic venoocclusive disease, and bronchiolitis. Gallstone. Nodular liver suggestive of cirrhosis. 1.7 cm nonobstructing calculus in the right kidney -Abnml CT abdominal:1. Loculated hyperdense fluid collection noted in the subcutaneous fat of the lower abdominal wall at the level of the symphysis pubis. This could represent an old hematoma/seroma. Infection not excluded. 2. Nodular liver suggest cirrhosis. 3. 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 4. Nonobstructing calculus in the right kidney. 5. Simple cysts in left kidney. 6. Gallstones. -Subcutaneous fluid collection in the lower abdominal wall: ER discussed with on-call surgery team. No acute intervention required at this time. Outpatient followup was recommended. Patient would like to followup with his own surgeon, Dr. Eulalio Flores. He does have a followup appointment with Dr. Flores on 08/02/2018 -Monitor for fever and abx PRN DM & peripheral neuropathy -FS and coverage -insulins, but hold PO med -pregabalin PE, Afib hx -On Pradaxa -Atenolol NAHUM, COPD -Oxygen -Spiriva -home CPAP use HTN -amlodipine, atenolol with parameter ,losartan BPH -Flomax, finasteride Depression -Zoloft GERD -pantoprazole HLD -statin Abnml cta chest:mild interstitial lung disease could represent early asbestosis. Mosaic perfusion abnormality noted in both lungs. Differential diagnostic consideration include air trapping, chronic venoocclusive disease, and bronchiolitis.Nodular liver suggestive of cirrhosis. 1.7 cm nonobstructing calculus in the right kidney -follow up with PCP Abnml CT abdominal:1. Loculated hyperdense fluid collection noted in the subcutaneous fat of the lower abdominal wall at the level of the symphysis pubis. This could represent an old hematoma/seroma. Infection not excluded. 2. Nodular liver suggest cirrhosis. 3. 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 4. Nonobstructing calculus in the right kidney. 5. Simple cysts in left kidney. 6. Gallstones. -Follow up with PCP, followup with his own surgeon, Dr. Eulalio Flores. hx Colon cancer: Patient to followup with his own doctor for continue screening PT/OT DVT prop with Pradaxa. VS, I&O, 24H, Fishbone Vital Signs/I&O Vital Signs Date Time Temp Pulse Resp B/P (MAP) Pulse Ox O2 Delivery O2 Flow Rate FiO2 07/24/18 16:04 63 182/81 (114) 69 165/72 (103) 70 171/92 (118) 07/24/18 14:00 97.2 17 94 1.0 07/24/18 00:37 BIPAP/CPAP I&O- Last 24 Hours up to 6 AM 07/24/18 06:00 Intake Total 2050 ml Output Total 545 ml Balance 1505 ml Laboratory Data 24H LABS Laboratory Tests 2 07/23/18 16:46: Bedside Glucose (Misc Panel) 228H 07/23/18 20:21: Bedside Glucose (Misc Panel) 189H 07/24/18 06:27: Nucleated Red Blood Cells % (auto) 0.0, Anion Gap 8, Glomerular Filtration Rate > 60.0, Calcium Level 8.4L, Triglycerides Level 152H, LDL Cholesterol 109H, Total Cholesterol 203H, Non-HDL Cholesterol (LDL + VLDL) 139, Total HDL Cholesterol 64, Cholesterol/HDL Ratio 3.171 07/24/18 15:48: CBC/BMP Laboratory Tests 07/24/18 06:27 Red Blood Count 3.93 L, Mean Corpuscular Volume 101.8 H, Mean Corpuscular Hemoglobin 31.6, Mean Corpuscular Hemoglobin Concent 31.0 L, Red Cell Distr ibution Width 13.5 Microbiology Microbiology 07/23/18 Blood Culture - Preliminary, Resulted No growth after 24 hours . All specim... SHERRI SOLIS MD Jul 24, 2018 17:21
[2018-07-24 19:09] LABS: FREE THYROXINE INDEX 2.6 % (1.4-3.8); T UPTAKE 32 % (33-40); THYROXINE (T4) 8.2 UG/DL (4.5-12.0)
[2018-07-24] MEDS: FINASTERIDE 5 MG TAB PO SCH (20:40)
[2018-07-24] MEDS: PANTOPRAZOLE 40MG TAB (PROTONIX) PO SCH (20:41)
[2018-07-24] MEDS: TAMSULOSIN 0.4 MG CAP PO SCH (20:41)
[2018-07-24] MEDS: LEVEMIR (INSULIN DETEMIR) 1 UNITS/0.01ML SC SCH (20:42)
[2018-07-24] MEDS: amLODIPine 5 MG TAB PO SCH (20:42)
[2018-07-25] VITALS (20 sets, daily range): BP systolic 140–158; BP diastolic 60–78; O2SAT 90–99
--- NOTE | 2018-07-25 02:29 | REP ---
Clinical: Transient ischemic attack . Technique: Watkins scale and color Doppler evaluation using linear high frequency transducer Findings: Two-dimensional watkins scale and color images demonstrate for moderate amounts of mixed, partially calcified atheromatous plaquing extending from the common carotid arteries to the carotid bulbs and proximal internal/external carotid arteries. Color images demonstrate areas of mild/moderate narrowing bilaterally along with Doppler interrogation demonstrating moderate areas of spectral broadening. Normal flow direction is appreciated in the bilateral vertebral arteries. RIGHT (cm/s) LEFT (cm/s) ICA peak systolic velocity 105.0 142.0 ICA diastolic velocity 17.0 28.0 ECA peak systolic velocity 203.0 110.0 CCA peak systolic velocity 78.9 153.0 ICA/CCA ratio 1.33 0.93 Impression: 1. Narrowing in the bilateral internal carotid and right external carotid arteries in the less than 50% range. Narrowing in the proximal right external carotid artery in the 50-69% range. Electronically Signed by Shay Cha MD 07/25/2018 02:20 A
[2018-07-25] MEDS: NS 1,000 ML IV SCH (03:00)
[2018-07-25] MEDS: METOCLOPRAMIDE INJ 10MG/2ML VIAL (J2765) IV PRN (03:33)
[2018-07-25 05:43] LABS: HEMATOCRIT 36.3 % (42.0-52.0); HEMOGLOBIN 11.5 g/dl (13.5-17.5); MEAN CORPUSCULAR HEMOGLOBIN 31.5 pg (27.0-33.0); MEAN CORPUSCULAR HGB CONC 31.7 g/dl (32.0-36.5); MEAN CORPUSCULAR VOLUME 99.5 fl (80.0-96.0); PLATELET COUNT, AUTOMATED 245 10^3/uL (150-450); RED BLOOD COUNT 3.65 10^6/uL (4.30-6.10); WHITE BLOOD COUNT 14.1 10^3/uL (4.0-10.0)
[2018-07-25 06:01] LABS: BLOOD UREA NITROGEN 17 MG/DL (7-18); CALCIUM LEVEL 7.9 MG/DL (8.8-10.2); CARBON DIOXIDE LEVEL 27 MEQ/L (21-32); CHLORIDE LEVEL 108 MEQ/L (98-107); CREATININE FOR GFR 1.09 MG/DL (0.70-1.30); GLOMERULAR FILTRATION RATE > 60.0 (>42); GLUCOSE, FASTING 159 MG/DL (70-100); POTASSIUM SERUM 3.8 MEQ/L (3.5-5.1); SODIUM LEVEL 141 MEQ/L (136-145)
--- NOTE | 2018-07-25 07:13 | REP ---
CT ANGIO HEAD: HISTORY: TIA. CONTRAST: Isovue-370 100 mL. The examination is available for review at 3:30 p.m. 07/24/2018. There is no aneurysm or arteriovenous malformation. Calcified atherosclerotic plaques are present in the cavernous internal carotid arteries and supraclinoid right internal carotid artery. These produce mild to moderate stenosis. Calcified atherosclerotic plaques are present in the distal vertebral arteries at the level of the foramen magnum. These produce moderate and severe stenosis of the right and left vertebral arteries respectively. Major intracranial vessels are patent. The vertebral arteries are equal in size. The deep venous system and dural sinuses are patent. IMPRESSION: 1. There is no aneurysm or arteriovenous malformation. 2. Atherosclerotic disease as described above. Electronically Signed by Garret Carrillo MD 07/25/2018 07:57 A
[2018-07-25] MEDS: TIOTROPIUM INHALER/CAPSULE (SPIRIVA) INH SCH (07:22)
--- NOTE | 2018-07-25 07:25 | REP ---
CT ANGIO NECK: HISTORY: TIA. CONTRAST: Isovue-370, 75 mL. Calcific atherosclerotic plaque is present at the distal right common carotid artery and the origins of the right external and internal carotid arteries. There is mild stenosis of 65% of the distal right common carotid artery. There is mild stenosis of 40% of the right internal carotid artery at its origin. . There is mild stenosis of 30% of the right external carotid artery at its origin. Calcified atherosclerotic plaques are present at the distal left common carotid artery and origins of the left external and internal carotid arteries. There is moderate stenosis of 50% of the distal left common carotid artery. There is mild stenosis of 40% of the left internal carotid artery at its origin. There is mild stenosis of 40% of the left external carotid artery at its origin. Calcified atherosclerotic plaques are present in the distal vertebral arteries at the level of the foramen magnum. These produce moderate and severe stenosis of the distal right and left vertebral arteries respectively. Calcified atherosclerotic plaques are present at the origins of the left subclavian and right common carotid arteries. The origins of the remaining great vessels are normal. IMPRESSION:1. Mild stenosis of 40% of the right internal carotid artery at its origin. 2. Mild stenosis of 40% of the left internal carotid artery at its origin. 3. There is moderate and severe stenosis of the distal right and left vertebral arteries respectively at the level of the foramen magnum. Electronically Signed by Garret Carrillo MD 07/25/2018 07:58 A
[2018-07-25] MEDS: HumaLOG INSULIN (NovoLOG) PER UNIT SC SCH ×4 (08:14→21:38)
--- NOTE | 2018-07-25 09:11 | IPN ---
DATE: 07/25/2018 Mr. Marquez is feeling a little bit better today. He tells me that his vision is now back to normal. He no longer feels nauseated, but he still feels weak and generally not well. Denies any chest pain or shortness of breath. PHYSICAL EXAMINATION: He is alert and oriented appropriate. Vital signs: Blood pressure 140/60, heart rate has been in 60s and 70s. There were no pauses overnight. Saturation 99-98% on 2 liters of oxygen. He is afebrile. His fluid balance yesterday was about equal. Weight is documented 183 kg. Jugular venous pressure (JVP) is not high. Lungs are clear. Heart exam reveals very muffled heart sounds but irregular rate. No gallop or murmur. Abdomen is obese but soft. No significant peripheral edema. LABORATORY DATA: CBC hemoglobin 11.5, hematocrit 36, platelet count 245,000, WBC count 14.1 and basic metabolic panel is normal but for glucose of 159. ASSESSMENT/PLAN: Mr. Marquez is a 72-year-old man who has chronic atrial fibrillation who presented with cereberal stroke. It is likely that the stroke is related to atrial fibrillation. What is tee information in my opinion is whether he was taking Pradaxa 75 twice a day or 150 twice a day. Because his GFR is more than 60 he certainly should be on a full dose of 150 twice a day and dosing in 75 twice a day was not sufficient. Should that be the case, I think that it will explain his presentation. He will have a CT and MRI of his head today and if there is no hemorrhage I would recommend to advance the dose of Pradaxa to full dose provided no objections from neurology. If they want us to wait a few days to reduce the risk of hemorrhagic conversion of stroke, I think it is acceptable, but I again from purely cardiac perspective, I would advance the dosing, even now. Otherwise, his rate is well-controlled and I do not believe that any further cardiac evaluation will be warranted. He chronically follows with Dr. Dunn and will return to his care. TABBY
--- NOTE | 2018-07-25 09:26 | CR ---
DATE OF CONSULTATION: 07/24/2018 REASON FOR CONSULTATION: New acute stroke of the superior right cerebellum. Gasper Marquez is a 72-year-old gentleman with a past medical history significant for pulmonary embolism on Pradaxa, type 2 diabetes, hyperlipidemia, hypertension, history of past tobacco abuse. The patient presented while having a sudden episode of feeling unwell. The patient was confused for a few seconds. He was unable to communicate He became quite pale. The patient was able to try to ambulate but was noted to be unsteady. The symptoms then self resolved. He was brought to [facility]. In the emergency department, the patient's blood pressure was 164/74. The patient did have a head CT, which showed only small vessel ischemic disease. No evidence of acute stroke. Due to the patient's body habitus, he was unable to obtain MRI in the closed unit. The patient remained in the hospital. He had episodes of transient visual blurriness. The patient was feeling lightheaded. These symptoms could certainly event vasovagal. One of these episodes occurred after having a bowel movement and standing up. The patient ended up collapsing towards the ground. The patient at this time seems to be back to baseline, according to himself. He is trying to ambulate now with the use of a walker. The patient denies any gross ataxia, dysmetria, weakness, dysarthria, diplopia, loss of vision, dizziness, headache. He states that earlier he had an occipital headache, which is improved. He is no longer having nausea or vomiting. The patient was experiencing nausea and vomiting while at home, as well as while in the hospital. He denied any migel vertigo. PAST MEDICAL HISTORY: 1. Hypertension. 2. Hyperlipidemia. 3. Benign prostatic hypertrophy (BPH). 4. Type 2 diabetes. 5. Peripheral neuropathy. 6. Depression, anxiety, panic attacks. 7. Chronic obstructive pulmonary disease (COPD). 8. Gastroesophageal reflux disease. 9. Gout. 10. Obesity. 11. Pulmonary embolism, on Pradaxa. PAST SURGICAL HISTORY: Bilateral inguinal hernia repair, cardiac catheterization, colon cancer status post. The patient did not require radiation but has surveillance colonoscopies. Left ankle surgery with hardware, ALLERGIES: Known drug allergies. SOCIAL HISTORY: The patient is a former smoker. Denies use any alcohol or illicit drugs. FAMILY HISTORY: Noncontributory. REVIEW OF SYSTEMS: 14-point review of systems obtained and negative except as per history of present illness. PHYSICAL EXAMINATION: Blood pressure is 167/84, pulse rate 60, respiratory rate 17, temperature is 97.2 degrees Fahrenheit, oxygenation 94% on 1 limit nasal cannula. The patient had orthostatic blood pressures completed while at bedside and orthostatics are negative. The patient is awake, alert, oriented to person, place and time. Speech, language, comprehension, repetition are intact. Pupils are 2.5 mm, round and reactive to light. Extraocular movements are intact in all directions. There is no significant nystagmus. Pursuits are choppy looking towards the left. Sensation V1-V2, V3 is intact to light touch. No facial asymmetry to activation. Palate elevates symmetrically. Tongue is midline. No weakness of sternocleidomastoids bilaterally. Hearing is subjectively equal to finger rub. There is no pronator drift. Strength is 5/5, including bilateral deltoids, biceps, triceps, handgrip, iliopsoas, quadriceps, anterior tibialis. Deep tendon reflexes are 2 in the upper extremities, decreased in lower extremities. Sensory is intact to light touch in all four extremities. Coordination does not reveal any gross ataxia or dysmetria at this time. Romberg testing completed and is negative. The patient is unsteady when he tries to ambulate. ASSESSMENT: 72-year-old male with CT evidence of right cerebellar inferior cerebellar ischemic stroke. The patient appears to have a stable sized stroke without any significant compression of the fourth ventricle. The patient appears to not have any significant hydrocephalus. He has quite a lot of atrophy throughout the brain resulting in inadequate room for any swelling from the stroke. Repeat CT scan did not show any significant progression of the condition. CT angiogram did reveal right-sided internal carotid artery stenosis, as well as moderate right vertebral and severe left vertebral artery stenosis. Based on the vertebral artery stenosis, I recommend adding a low-dose aspirin. The patient is currently on Pradaxa, which can be continued for his history of PE. The patient has already had his statin dose doubled since the stroke, pravastatin 20 up to 40 mg, which can continue. The patient will continue telemetry. He has been having asymptomatic bradycardia, which is being managed well at this time. The patient will continue physical therapy (PT) and occupational therapy (OT) evaluation. Recommend echocardiogram. Recommend cardiac consultation for bradycardia. It is possible, due to the episodes of near syncope, the patient may have hypoperfused the posterior circulation, which may have resulted in his right cerebellar stroke due to the significant stenosis. The patient at this point in time seems to be doing fairly well. Has not had any recurring episodes of near syncope in the last 24 hours. Recommend every 2-hour neuro checks until tomorrow morning. After which, if the patient is stable, can be switched to every 4-hour neuro checks. Recommend repeat head CT in the morning. Recommend MRI of the brain without contrast. MR angiogram of the head without contrast to be completed on the open MRI unit. Case discussed with the primary team.
[2018-07-25] MEDS: ASPIRIN 81 MG ENTERIC TAB PO SCH (09:59)
[2018-07-25] MEDS: PREGABALIN 100 MG CAP (LYRICA) PO SCH ×2 (09:59→21:37)
[2018-07-25] MEDS: SERTRALINE 100 MG TAB PO SCH (09:59)
[2018-07-25] MEDS: LOSARTAN 50 MG TAB PO SCH (10:00)
[2018-07-25] MEDS: ATENOLOL 50 MG TAB PO SCH (10:00)
[2018-07-25] MEDS: PRAVASTATIN 20 MG TAB PO SCH (10:00)
--- NOTE | 2018-07-25 10:50 | REP ---
CT Head without contrast HISTORY: Infarction COMPARISON: 07/24/2018 An area of decreased attenuation is present in the inferior right cerebellum. This represents an acute infarction. There is no hemorrhage. There is no mass effect on the fourth ventricle. Areas of decreased attenuation are present in the basal ganglia. This represent old lacunar infarctions. Areas of decreased attenuation are present in the periventricular white matter. This represents small-vessel ischemic disease. The ventricular system and cortical sulci are dilated consistent with minimal volume loss. There is no extra cerebral collection. There is no fracture. The visualized sinuses are clear. IMPRESSION: 1. Acute right cerebellar infarction unchanged compared to the previous study. 2. Old bilateral basal ganglia lacunar infarctions. 3. Small vessel ischemic disease. 4. Minimal volume loss. Electronically Signed by Garret Carrillo MD 07/25/2018 10:41 A
[2018-07-25] MEDS: DABIGATRAN ETEXILATE 75 MG CAP (PRADAXA) PO SCH ×2 (12:45→21:37)
[2018-07-25] MEDS ORDERED: SLF 3 ML SYR IV PRN (14:00)
[2018-07-25] MEDS: SLF 3 ML SYR IV SCH ×2 (14:08→21:38)
--- NOTE | 2018-07-25 15:38 | IPNPDOC ---
Date Seen The patient was seen on 07/25/18. Progress Note SUBJECTIVE:Patient denied of shortness of breath. He denied of pain and his weakness improved. His repeat CT head this morning Acute right cerebellar infarction unchanged compared to the previous study. Cardiology recommended verify and increasing Pradaxa 150 mg BID if okay with neurology. Verify med dose with . Spoke to Neurology and patient, neurology informed the patient has risk for hemorrhagic stroke with both Pradaxa 150 mg twice a day or with Pradaxa 75 mg plus aspirin 81 mg. Patient was informed of risk and benefits of both therapy and he decided he would prefer to continue the Pradaxa 75 mg with additional aspirin 81 mg and weight week and have a repeat CT scan and then inc rease Pradaxa 250 mg twice a day as recommended by neurology. Patient will most likely need neurology follow-up and repeat CT scan and adjustment medication after being discharged. OBJECTIVE PHYSICAL EXAMINATION: VITAL SIGNS: Please see below GENERAL APPEARANCE: weak HEENT: Normocephalic, PERRLA, Mucous moist, horizontal nystagmus CARDIOVASCULAR: S1,S2, pulse present, regularly, regular, no obvious murmur LUNGS: Equal air entry b/l, no wheezes or crackle ABDOMEN: Soft, BS present, no tenderness, no guarding GENITOURINARY: No Ewing EXTREMITIES: B/L no edema, capillary refill present SKIN: Warm, No fever PSYCHIATRIC: Normal mood and affect for current situation NEUROLOGICAL: Cranial nerves grossly intact Alert, not alert Answer both question correctly General Weakness Normal Gaze No visual loss at this time No facial palsy upper and lower ext weakness No limb ataxia Sensory normal No aphasia No Dysarthria No neglect LABORATORY DATA, IMAGING STUDIES, MICROBIOLOGY: Please see below. 72-year-old gentleman with multiple comorbidities who was brought to emergency department for complaint of one episode of confusion. Patient was sitting and having lunch in recliner and suddenly he felt that he was feeling hot and his noticed that his color was turning pale and patient was confused and was not able to answer any question. During this episode, patient stated that he had episode of blurry vision and he felt that his gait was unsteady when he tried to walk to the restroom. There was no other associated symptom. Assessment and Plan: 72 yr old M with DM, HTN, on pradaxa, BPH, GERD, peripheral neuropathy, Depression, NAHUM on CPAP and complaint, ?COPD and not oxygen dependent, PE, A.fib came to ER for intermittent episodes of blurry vision and blindness that start on 07/22/18 around 3pm and subsequent N/V and confusion. No abdominal pain, fever, or diarrhea. Patient admitted for TIA and incidental abnormals CT abdomen finding and weakness. CVA, intermittent vision loss, weakness, horizontal nystagmus -07/22/18 CT of the head: Small vessel ischemic disease, minimal volume loss -07/23/18 CT head: 1. Acute right cerebellar infarction. There is no hemorrhage. 2. Old bilateral basal ganglia lacunar infarctions. 3. Small vessel ischemic disease. 4. Minimal volume loss. -07/24/18 CT head:Acute right cerebellar infarction unchanged compared to the previous study. Report noted on 07/23/18. -07/25/18 Ct head: Acute right cerebellar infarction unchanged compared to the previous study.See radiologic report for full detail. -Echo:1. nml global lt vent sys fxn. mild eccentric LVH. Mildly enlarged left atrium with trace MR. Mild TR with probably mild pulm HTN. Mildly dilated aortic root at 3.9 cm. Trace pericardial effusion noted in limited views, no evidence of cardiac tamponade. -CTA head : 1. There is no aneurysm or arteriovenous malformation. 2. Atherosclerotic disease as described above. -Cta neck:1. Mild stenosis of 40% of the right internal carotid artery at its origin. 2. Mild stenosis of 40% of the left internal carotid artery at its origin. 3. There is moderate and severe stenosis of the distal right and left vertebral arteries respectively at the level of the foramen magnum. -carotid doppler:Narrowing in the bilateral internal carotid and right external carotid arteries in the less than 50% range. Narrowing in the proximal right external carotid artery in the 50-69% range. -Spoke to Dr. Sweet: Neurocheck [id number] Q4h, asa and statin. open MRI/MRA without contrast pending. See below. -Lipid profile: elevated, statin increased to 40mg -A1c: nml -Thyroid profile: nml -ASA, Statin -orthostatic vital: reviewed Cardiology recommended Pradaxa 150 mg BID if okay with neurology. Spoke to Neurology and patient, neurology informed the patient has risk for hemorrhagic stroke with both Pradaxa 150 mg twice a day or with Pradaxa 75 mg bid (home dose?) plus aspirin 81 mg daily. Patient was informed of risks (including bleed) and benefits of both therapy and he decided he want to continue the Pradaxa 75 mg with additional aspirin 81 mg and weight week and have a repeat CT scan and then increase Pradaxa 250 mg twice a day as recommended by neurology. Patient will most likely need neurology follow-up and repeat CT scan and adjustment medication after being discharged. N/v -supportive tx w anti-emetics, ivf, oxygen Asym bradycardia -limit zofran and reglan if possible -atenolol with paramenter -Consult with Dr. Orlando cardiology R/o infx -UA neg uti -Blood culture: NGD -CXR:Chronic interstitial change. -CT of the chest: Negative for PE, asbestos-related pleural disease, mild interstitial lung disease could represent early asbestosis. Mosaic perfusion abnormality noted in both lungs. Differential diagnostic consideration include air trapping, chronic venoocclusive disease, and bronchiolitis. Gallstone. Nodular liver suggestive of cirrhosis. 1.7 cm nonobstructing calculus in the right kidney -Abnml CT abdominal:1. Loculated hyperdense fluid collection noted in the subcutaneous fat of the lower abdominal wall at the level of the symphysis pubis. This could represent an old hematoma/seroma. Infection not excluded. 2. Nodular liver suggest cirrhosis. 3. 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 4. Nonobstructing calculus in the right kidney. 5. Si mple cysts in left kidney. 6. Gallstones. -Subcutaneous fluid collection in the lower abdominal wall: ER discussed with on-call surgery team. No acute intervention required at this time. Outpatient followup was recommended. Patient would like to followup with his own surgeon, Dr. Eulalio Flores. He does have a followup appointment with Dr. Flores on 08/02/2018 -Monitor for fever and abx PRN DM & peripheral neuropathy -FS and coverage -insulins, but hold PO med -pregabalin PE, Afib hx -On Pradaxa -Atenolol NAHUM, COPD -Oxygen -Spiriva -home CPAP use HTN -amlodipine, atenolol with parameter ,losartan BPH -Flomax, finasteride Depression -Zoloft GERD -pantoprazole HLD -statin Abnml cta chest:mild interstitial lung disease could represent early asbestosis. Mosaic perfusion abnormality noted in both lungs. Differential diagnostic consideration include air trapping, chronic venoocclusive disease, and bronchiolitis.Nodular liver suggestive of cirrhosis. 1.7 cm nonobstructing calculus in the right kidney -follow up with PCP Abnml CT abdominal:1. Loculated hyperdense fluid collection noted in the subcutaneous fat of the lower abdominal wall at the level of the symphysis pubis. This could represent an old hematoma/seroma. Infection not excluded. 2. Nodular liver suggest cirrhosis. 3. 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 4. Nonobstructing calculus in the right kidney. 5. Simple cysts in left kidney. 6. Gallstones. -Follow up with PCP, followup with his own surgeon, Dr. Eulalio Flores. hx Colon cancer: Patient to followup with his own doctor for continue screening PT/OT DVT prop with Pradaxa. DISPOSITION: . VS, I&O, 24H, Fishbone Vital Signs/I&O Vital Signs Date Time Temp Pulse Resp B/P (MAP) Pulse Ox O2 Delivery O2 Flow Rate FiO2 07/25/18 12:00 97.9 72 20 151/62 (91) 92 2.0 07/25/18 04:00 BIPAP/CPAP I&O- Last 24 Hours up to 6 AM 07/25/18 06:00 Intake Total 770 ml Output Total 700 ml Balance 70 ml Laboratory Data 24H LABS Laboratory Tests 2 07/24/18 15:48: Estimated Mean Plasma Glucose 180H, Hemoglobin A1c 7.9 07/24/18 20:22: Bedside Glucose (Misc Panel) 151H 07/25/18 05:22: Nucleated Red Blood Cells % (auto) 0.0, Anion Gap 6L, Glomerular Filtration Rate > 60.0, Blood Urea Nitrogen 17, Creatinine 1.09, Sodium Level 141, Potassium L evel 3.8, Chloride Level 108H, Carbon Dioxide Level 27, Calcium Level 7.9L 07/25/18 12:06: Bedside Glucose (Misc Panel) 157H CBC/BMP Laboratory Tests 07/25/18 05:22 Red Blood Count 3.65 L, Mean Corpuscular Volume 99.5 H, Mean Corpuscular Hemoglobin 31.5, Mean Corpuscular Hemoglobin Concent 31.7 L, Red Cell Distribution Width 13.2, Calcium Level 7.9 L Microbiology Microbiology 07/23/18 Blood Culture - Preliminary, Resulted No Growth after 48 hours. All Specime... SHERRI SOLIS MD Jul 25, 2018 15:38
[2018-07-25] MEDS: FINASTERIDE 5 MG TAB PO SCH (21:37)
[2018-07-25] MEDS: LEVEMIR (INSULIN DETEMIR) 1 UNITS/0.01ML SC SCH (21:37)
[2018-07-25] MEDS: PANTOPRAZOLE 40MG TAB (PROTONIX) PO SCH (21:37)
[2018-07-25] MEDS: TAMSULOSIN 0.4 MG CAP PO SCH (21:38)
[2018-07-25] MEDS: amLODIPine 5 MG TAB PO SCH (21:38)
[2018-07-26] MEDS: SLF 3 ML SYR IV SCH (05:38)
[2018-07-26 05:56] LABS: HEMATOCRIT 35.7 % (42.0-52.0); HEMOGLOBIN 11.7 g/dl (13.5-17.5); MEAN CORPUSCULAR HEMOGLOBIN 31.9 pg (27.0-33.0); MEAN CORPUSCULAR HGB CONC 32.8 g/dl (32.0-36.5); MEAN CORPUSCULAR VOLUME 97.3 fl (80.0-96.0); PLATELET COUNT, AUTOMATED 228 10^3/uL (150-450); RED BLOOD COUNT 3.67 10^6/uL (4.30-6.10); WHITE BLOOD COUNT 13.7 10^3/uL (4.0-10.0)
[2018-07-26 06:00] VITALS: BP 152/74
[2018-07-26 06:24] LABS: BLOOD UREA NITROGEN 16 MG/DL (7-18); CALCIUM LEVEL 8.2 MG/DL (8.8-10.2); CARBON DIOXIDE LEVEL 27 MEQ/L (21-32); CHLORIDE LEVEL 107 MEQ/L (98-107); CREATININE FOR GFR 0.91 MG/DL (0.70-1.30); GLOMERULAR FILTRATION RATE > 60.0 (>42); GLUCOSE, FASTING 169 MG/DL (70-100); POTASSIUM SERUM 3.5 MEQ/L (3.5-5.1); SODIUM LEVEL 140 MEQ/L (136-145)
[2018-07-26] MEDS: TIOTROPIUM INHALER/CAPSULE (SPIRIVA) INH SCH (07:27)
[2018-07-26] MEDS: SERTRALINE 100 MG TAB PO SCH (09:01)
[2018-07-26] MEDS: ASPIRIN 81 MG ENTERIC TAB PO SCH (09:01)
[2018-07-26] MEDS: DABIGATRAN ETEXILATE 75 MG CAP (PRADAXA) PO SCH (09:01)
[2018-07-26] MEDS: PRAVASTATIN 20 MG TAB PO SCH (09:01)
[2018-07-26 09:03] VITALS: BP 152/70
[2018-07-26] MEDS: ATENOLOL 50 MG TAB PO SCH (09:03)
[2018-07-26] MEDS: LOSARTAN 50 MG TAB PO SCH (09:04)
[2018-07-26] MEDS: HumaLOG INSULIN (NovoLOG) PER UNIT SC SCH (09:05)
[2018-07-26 09:15] VITALS: O2SAT 94
[2018-07-26] MEDS: PREGABALIN 100 MG CAP (LYRICA) PO SCH (09:19)
--- NOTE | 2018-07-26 09:50 | IPNPDOC ---
Subjective Date Seen The patient was seen on 07/26/18. Subjective Chief Complaint/HPI stroke General: Reports: Fatigue, Malaise; Denies: Chills Eyes: Denies: Vision change Pulmonary: Reports: Dyspnea; Denies: Cough Cardiovascular: Reports: Edema; Denies: Chest Pain, Palpitations, Lt Headedness Gastrointestinal: Reports: Nausea; Denies: Vomiting Genitourinary: Denies: Dysuria Neurological: Reports: Weakness Psych: Reports: Mood Normal Objective Physical Examination General Exam: Positive: Alert, Cooperative, No Acute Distress Eye Exam: Positive: Sclera icteric Heart Exam: Positive: Rate Normal, Irregular Rhythm, Normal S1, Normal S2; Negative: Murmurs, Rubs Telemetry: Positive: Atrial fibrillation, Pause Abdomen Exam: Positive: Normal bowel sounds, Soft, Other (obese); Negative: Tenderness Male Exam: Positive: Edema (b/l LE) Extremity Exam: Positive: Normal pulses Neuro Exam: Positive: Normal Speech Psych Exam: Positive: Oriented x 3 A-FIB/CHADSVASC A-FIB History Current/History of A-Fib/PAF?: Yes Current Oral Anticoagulant The: Yes Age/Risk Factor Scoring CHADSVASC: CHADSVASC Response (Comments) Value Age Risk Factor Age 65-74 years old 1 Gender Risk Factor Male 0 Hx of CHF Yes 1 Hx of HTN Yes 1 Hx of Stroke/TIA/or VTE Yes 2 Hx of Diabetes Yes 1 Hx of Vascular Disease Yes 1 Total 7 Treatment Treatment ordered: Holding Other (aspirin pradaxa) Assessment /Plan Assessment CARDIOLOGY PROGRESS NOTE, FOR DR. MOTT ASSESSMENT/PLAN: Mr. Marquez is a 72-year-old man who has chronic atrial fibrillation who presented with right cerebral stroke likely secondary to atrial fibrillation. He states he was taking Pradaxa 75 mg BID. Because his GFR is more than 60 he really should have been on full dose of Pradaxa 150 mg BID. He did have repeat CT of his head and there was no development of hemorrhage. I would recommend to advance the dose of Pradaxa to full dose and discontinue aspirin therapy as he has no history of CAD nor cardiac stents. However have spoken with Neurology and they would like to wait one week for this plan given the size of the cerebellar stroke, they recommend repeat CT head in one week and then to increase Pradaxa to full dose and d/c aspirin as outlined above. Purely from a cardiac perspective, I would advance the dosing, even now, but understand neurology concerns. I do not see an order for MRI head today. Otherwise, his rate is well-controlled, he did have two second pause overnight on telemetry review but this isn't unexpected with his history of chronic a. fib for many years. I do not believe that any further cardiac evaluation will be warranted. He chronically follows with Dr. Dunn and will return to his care. Plan/VTE VTE Prophylaxis Ordered?: Yes VS, I&O, 24H, Fishbone Vital Signs/I&O Vital Signs Date Time Temp Pulse Resp B/P (MAP) Pulse Ox O2 Delivery O2 Flow Rate FiO2 07/26/18 09:03 86 152/70 07/26/18 06:00 98.3 20 90 07/25/18 21:00 Room Air 07/25/18 20:00 2.0 I&O- Last 24 Hours up to 6 AM0 07/26/18 06:00 Intake Total 1170 ml Output Total 100 ml Balance 1070 ml Laboratory Data 24H LABS Laboratory Tests 2 07/25/18 12:06: Bedside Glucose (Misc Panel) 157H 07/25/18 17:19: Bedside Glucose (Misc Panel) 160H 07/25/18 20:40: Bedside Glucose (Misc Panel) 150H 07/26/18 05:31: Nucleated Red Blood Cells % (auto) 0.0, Anion Gap 6L, Glomerular Filtration Rate > 60.0, Blood Urea Nitrogen 16, Creatinine 0.91, Sodium Level 140, Potassium Level 3.5, Chloride Level 107, Carbon Dioxide Level 27, Calcium Level 8.2L CBC/BMP Laboratory Tests 07/26/18 05:31 Red Blood Count 3.67 L, Mean Corpuscular Volume 97.3 H, Mean Corpuscular Hemoglobin 31.9, Mean Corpuscular Hemoglobin Concent 32.8, Red Cell Distribution Width 13.2, Calcium Level 8.2 L Microbiology Microbiology 07/23/18 Blood Culture - Preliminary, Resulted No Growth after 48 hours. All Specime... GME ATTESTATION GME ATTESTATION My faculty preceptor for this patient encounter was physically present during the encounter and was fully available. All aspects of the patient interview, examination, medical decision making process, and medical care plan development were reviewed and approved by the faculty preceptor. The faculty preceptor is aware and concurs with the plan as stated in the body of this note and will attest to such by his/her cosignature. NOIN BENSON DO Jul 26, 2018 09:50
[2018-07-26] MEDS ORDERED: ASPI81TAEC PO (10:44)
--- NOTE | 2018-07-26 10:48 | IPNPDOC ---
Date Seen The patient was seen on 07/26/18. Progress Note SUBJECTIVE:Per Neurology," Recommend MRI of the brain without contrast. MR angiogram of the head without contrast to be completed on the open MRI unit." His repeat CT head:Acute right cerebellar infarction unchanged compared to the previous study. Cardiology recommended vincreasing Pradaxa 150 mg BID if okay with neurology. neurology informed the patient has risk for hemorrhagic stroke with both Pradaxa 150 mg twice a day or with Pradaxa 75 mg plus aspirin 81 mg. Patient was informed of risk and benefits of both therapy and he decided he would prefer to continue the Pradaxa 75 mg with additional aspirin 81 mg and wait a week and have a repeat CT scan and then increase Pradaxa to full dose of 150 mg twice a day as recommended by neurology. Patient will most likely need neurology follow-up and repeat CT scan and adjustment medication after being discharged. OBJECTIVE PHYSICAL EXAMINATION: VITAL SIGNS: Please see below GENERAL APPEARANCE: weak HEENT: Normocephalic, PERRLA, Mucous moist, horizontal nystagmus CARDIOVASCULAR: S1,S2, pulse present, regularly, regular, no obvious murmur LUNGS: Equal air entry b/l, no wheezes or crackle ABDOMEN: Soft, BS present, no tenderness, no guarding GENITOURINARY: No Ewing EXTREMITIES: B/L no edema, capillary refill present SKIN: Warm, No fever PSYCHIATRIC: Normal mood and affect for current situation NEUROLOGICAL: Cranial nerves grossly intact Alert, not alert,Answer both question correctly,General Weakness,Normal Gaze ,No visual loss at this time No facial palsy ,upper and lower ext weakness, No limb ataxia ,Sensory n ormal No aphasia ,No Dysarthria ,No neglect LABORATORY DATA, IMAGING STUDIES, MICROBIOLOGY: Please see below. ASSESSMENT AND PLAN: 72-year-old gentleman with multiple comorbidities who was brought to emergency department for complaint of one episode of confusion. Patient was sitting and having lunch in recliner and suddenly he felt that he was feeling hot and his noticed that his color was turning pale and patient was confused and was not able to answer any question. During this episode, patient stated that he had episode of blurry vision and he felt that his gait was unsteady when he tried to walk to the restroom. There was no other associated symptom. Assessment and Plan: 72 yr old M with DM, HTN, on pradaxa, BPH, GERD, peripheral neuropathy, Depression, NAHUM on CPAP and complaint, ?COPD and not oxygen dependent, PE, A.fib came to ER for intermittent episodes of blurry vision and blindness that start on 07/22/18 around 3pm and subsequent N/V and confusion. No abdominal pain, fever, or diarrhea. Patient admitted for TIA and incidental abnormals CT abdomen finding and weakness. CVA, intermittent vision loss, weakness, horizontal nystagmus -07/22/18 CT of the head: Small vessel ischemic disease, minimal volume loss -07/23/18 CT head: 1. Acute right cerebellar infarction. There is no hemorrhage. 2. Old bilateral basal ganglia lacunar infarctions. 3. Small vessel ischemic disease. 4. Minimal volume loss. -07/24/18 CT head:Acute right cerebellar infarction unchanged compared to the previous study. Report noted on 07/23/18. -07/25/18 Ct head: Acute right cerebellar infarction unchanged compared to the previous study.See radiologic report for full detail. -Echo:1. nml global lt vent sys fxn. mild eccentric LVH. Mildly enlarged left atrium with trace MR. Mild TR with probably mild pulm HTN. Mildly dilated aortic root at 3.9 cm. Trace pericardial effusion noted in limited views, no evidence of cardiac tamponade. -CTA head : 1. There is no aneurysm or arteriovenous malformation. 2. Atherosclerotic disease as described above. -Cta neck:1. Mild stenosis of 40% of the right internal carotid artery at its origin. 2. Mild stenosis of 40% of the left internal carotid artery at its origin. 3. There is moderate and severe stenosis of the distal right and left vertebral arteries respectively at the level of the foramen magnum. -carotid doppler:Narrowing in the bilateral internal carotid and right external carotid arteries in the less than 50% range. Narrowing in the proximal right external carotid artery in the 50-69% range. -Spoke to Dr. Sweet: Neurocheck [id number] Q4h, asa and statin. open MRI/MRA without contrast pending. See below. -Lipid profile: elevated, statin increased to 40mg -A1c: nml -Thyroid profile: nml -ASA, Statin -orthostatic vital: reviewed Cardiology recommended Pradaxa 150 mg BID if okay with neurology. Spoke to Neurology and patient, neurology informed the patient has risk for hemorrhagic stroke with both Pradaxa 150 mg twice a day or with Pradaxa 75 mg bid (home dose?) plus aspirin 81 mg daily. Patient was informed of risks (including bleed) and benefits of both therapy and he decided he want to continue the Pradaxa 75 mg with additional aspirin 81 mg and weight week and have a repeat CT scan and then increase Pradaxa 250 mg twice a day as recommended by neurology. Patient will most likely need neurology follow-up and repeat CT scan and adjustment medication after being discharged. N/v -supportive tx w anti-emetics, ivf, oxygen Asym bradycardia -limit zofran and reglan if possible -atenolol with paramenter -Consult with Dr. Orlando cardiology R/o infx -UA neg uti -Blood culture: NGD -CXR:Chronic interstitial change. -CT of the chest: Negative for PE, asbestos-related pleural disease, mild interstitial lung disease could represent early asbestosis. Mosaic perfusion abnormality noted in both lungs. Differential diagnostic consideration include air trapping, chronic venoocclusive disease, and bronchiolitis. Gallstone. Nodular liver suggestive of cirrhosis. 1.7 cm nonobstructing calculus in the right kidney -Abnml CT abdominal:1. Loculated hyperdense fluid collection noted in the subcutaneous fat of the lower abdominal wall at the level of the symphysis pubis. This could represent an old hematoma/seroma. Infection not excluded. 2. Nodular liver suggest cirrhosis. 3. 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 4. Nonobstructing calculus in the right kidney. 5. Simple cysts in left kidney. 6. Gallstones. -Subcutaneous fluid collection in the lower abdominal wall: ER discussed with on-call surgery team. No acute intervention required at this time. Outpatient followup was recommended. Patient would like to followup with his own surgeon, Dr. Eulalio Flores. He does have a followup appointment with Dr. Flores on 08/02/2018 -Monitor for fever and abx PRN DM & peripheral neuropathy -FS and coverage -insulins, but hold PO med -pregabalin PE, Afib hx -On Pradaxa -Atenolol NAHUM, COPD -Oxygen -Spiriva -home CPAP use HTN -amlodipine, atenolol with parameter ,losartan BPH -Flomax, finasteride Depression -Zoloft GERD -pantoprazole HLD -statin Abnml cta chest:mild interstitial lung disease could represent early asbestosis. Mosaic perfusion abnormality noted in both lungs. Differential diagnostic consideration include air trapping, chronic venoocclusive disease, and bronchiolitis.Nodular liver suggestive of cirrhosis. 1.7 cm nonobstructing ca lculus in the right kidney -follow up with PCP Abnml CT abdominal:1. Loculated hyperdense fluid collection noted in the subcutaneous fat of the lower abdominal wall at the level of the symphysis pub is. This could represent an old hematoma/seroma. Infection not excluded. 2. Nodular liver suggest cirrhosis. 3. 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 4. Nonobstructing calculus in the right kidney. 5. Simple cysts in left kidney. 6. Gallstones. -Follow up with PCP, followup with his own surgeon, Dr. Eulalio Flores. hx Colon cancer: Patient to followup with his own doctor for continue screening PT/OT DVT prop with Pradaxa. DISPOSITION: passed HSE and outpt [facility] to be arranged by neurologist A-FIB/CHADSVASC A-FIB History Current/History of A-Fib/PAF?: Yes Age/Risk Factor Scoring CHADSVASC: CHADSVASC Response (Comments) Value Age Risk Factor Age 65-74 years old 1 Gender Risk Factor Male 0 Hx of CHF Yes 1 Hx of HTN Yes 1 Hx of Stroke/TIA/or VTE Yes 2 Hx of Diabetes Yes 1 Hx of Vascular Disease Yes 1 Total 7 VS, I&O, 24H, Fishbone Vital Signs/I&O Vital Signs Date Time Temp Pulse Resp B/P (MAP) Pulse Ox O2 Delivery O2 Flow Rate FiO2 07/26/18 09:15 94 Room Air 07/26/18 09:03 86 152/70 07/26/18 06:00 98.3 20 07/25/18 20:00 2.0 I&O- Last 24 Hours up to 6 AM 07/26/18 06:00 Intake Total 1170 ml Output Total 100 ml Balance 1070 ml Laboratory Data 24H LABS Laboratory Tests 2 07/25/18 12:06: Bedside Glucose (Misc Panel) 157H 07/25/18 17:19: Bedside Glucose (Misc Panel) 160H 07/25/18 20:40: Bedside Glucose (Misc Panel) 150H 07/26/18 05:31: Nucleated Red Blood Cells % (auto) 0.0, Anion Gap 6L, Glomerular Filtration Rate > 60.0, Blood Urea Nitrogen 16, Creatinine 0.91, Sodium Level 140, Potassium Level 3.5, Chloride Level 107, Carbon Dioxide Level 27, Calcium Level 8.2L CBC/BMP Laboratory Tests 07/26/18 05:31 Red Blood Count 3.67 L, Mean Corpuscular Volume 97.3 H, Mean Corpuscular Hemoglobin 31.9, Mean Corpuscular Hemoglobin Concent 32.8, Red Cell Distribution Width 13.2, Calcium Level 8.2 L Microbiology Microbiology 07/23/18 Blood Culture - Preliminary, Resulted No Growth after 48 hours. All Specime... JASON NOBLES MD Jul 26, 2018 10:19
--- NOTE | 2018-07-27 08:23 | DS.PDOC ---
Discharge Summary General Date of Admission Jul 25, 2018 at 10:56 Date of Discharge JULY 27, 2018 Discharge Summary CONSULTANTS: DR. MONTEZ/DR MOTT, CARDIOLOGISTS DR PRESTON,NEUROLOGIST DISCHARGE DIAGNOSES: Cerebellar CVA, intermittent vision loss, weakness, horizontal nystagmus Asym bradycardia DM & peripheral neuropathy PE Afib hx NAHUM, COPD HTN BPH Depression GERD HLD early asbestosis Nodular liver Cirrhosis. 1.7 cm nonobstructing calculus in the right kidney lower abdominal wall at the level of the symphysis pubis hematoma/seroma. Infect ion not excluded. 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 Simple cysts in left kidney. Gallstones. hx Colon cancer: DISCHARGE MEDS: PLS SEE BELOW HISTORY OF PRESENTING ILLNESS: 72-year-old gentleman with multiple comorbidities who was brought to emergency department for complaint of one episode of confusion. Patient was sitting and having lunch in recliner and suddenly he felt that he was feeling hot and his noticed that his color was turning pale and patient was confused and was not able to answer any question. During this episode, patient stated that he had episode of blurry vision and he felt that his gait was unsteady when he tried to walk to the restroom. There was no other associated symptom.Patient admitted for TIA and incidental abnormals CT abdomen finding and weakness. HOSPITAL COURSE: CerebellaR CVA, intermittent vision loss, weakness, horizontal nystagmus -07/22/18 CT of the head: Small vessel ischemic disease, minimal volume loss -07/23/18 CT head: 1. Acute right cerebellar infarction. There is no hemorrhage. 2. Old bilateral basal ganglia lacunar infarctions. 3. Small vessel ischemic disease. 4. Minimal volume loss. -07/24/18 CT head:Acute right cerebellar infarction unchanged compared to the previous study. Report noted on 07/23/18. -07/25/18 Ct head: Acute right cerebellar infarction unchanged compared to the previous study.See radiologic report for full detail. -Echo:1. nml global lt vent sys fxn. mild eccentric LVH. Mildly enlarged left atrium with trace MR. Mild TR with probably mild pulm HTN. Mildly dilated aortic root at 3.9 cm. Trace pericardial effusion noted in limited views, no evidence of cardiac tamponade. -CTA head : 1. There is no aneurysm or arteriovenous malformation. 2. Atherosclerotic disease as described above. -Cta neck:1. Mild stenosis of 40% of the right internal carotid artery at its origin. 2. Mild stenosis of 40% of the left internal carotid artery at its origin. 3. There is moderate and severe stenosis of the distal right and left vertebral arteries respectively at the level of the foramen magnum. -carotid doppler:Narrowing in the bilateral internal carotid and right external carotid arteries in the less than 50% range. Narrowing in the proximal right external carotid artery in the 50-69% range. -Spoke to Dr. Preston: Neurocheck [id number] Q4h, asa and statin. open MRI/MRA without contrast pending. See below. -Lipid profile: elevated, statin increased to 40mg -A1c: nml -Thyroid profile: nml -ASA, Statin -orthostatic vital: reviewed Cardiology recommended Pradaxa 150 mg BID if okay with neurology. Spoke to Neurology and patient, neurology informed the patient has risk for hemorrhagic stroke with both Pradaxa 150 mg twice a day or with Pradaxa 75 mg bid (home dos e?) plus aspirin 81 mg daily. Patient was informed of risks (including bleed) and benefits of both therapy and he decided he want to continue the Pradaxa 75 mg with additional aspirin 81 mg and weight week and have a repeat CT scan and then increase Pradaxa 250 mg twice a day as recommended by neurology. Patient will most likely need neurology follow-up and repeat CT scan and adjustment medication after being discharged.Per Neurology," Recommend MRI of the brain without contrast. MR angiogram of the head without contrast to be completed on the open MRI unit."His repeat CT head:Acute right cerebellar infarction unchanged compared to the previous study. Cardiology recommended vincreasing Pradaxa 150 mg BID if okay with neurology. neurology informed the patient has risk for hemorrhagic stroke with both Pradaxa 150 mg twice a day or with Pradaxa 75 mg plus aspirin 81 mg. Patient was informed of risk and benefits of both therapy and he decided he would prefer to continue the Pradaxa 75 mg with additional aspirin 81 mg and wait a week and have a repeat CT scan and then increase Pradaxa to full dose of 150 mg twice a day as recommended by neurology. Patient will most likely need neurology follow-up and repeat CT scan and adjustment medication after being discharged. Pt refused HIGH DOSE PRADAXA DESPITE RISK OF RECURRENT CVA. N/v -supportive tx w anti-emetics, ivf, oxygen Asym bradycardia -limit zofran and reglan if possible -atenolol with paramenter -Consult with Dr. Montez cardiology R/o infx -UA neg uti -Blood culture: NGD -CXR:Chronic interstitial change. -CT of the chest: Negative for PE, asbestos-related pleural disease, mild inter stitial lung disease could represent early asbestosis. Mosaic perfusion abnormality noted in both lungs. Differential diagnostic consideration include air trapping, chronic venoocclusive disease, and bronchiolitis. Gallstone. Nodular liver suggestive of cirrhosis. 1.7 cm nonobstructing calculus in the right kidney -Abnml CT abdominal:1. Loculated hyperdense fluid collection noted in the subcutaneous fat of the lower abdominal wall at the level of the symphysis pubis. This could represent an old hematoma/seroma. Infection not excluded. 2. Nodular liver suggest cirrhosis. 3. 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 4. Nonobstructing calculus in the right kidney. 5. Simple cysts in left kidney. 6. Gallstones. -Subcutaneous fluid collection in the lower abdominal wall: ER discussed with on-call surgery team. No acute intervention required at this time. Outpatient followup was recommended. Patient would like to followup with his own surgeon, Dr. Eulalio Flores. He does have a followup appointment with Dr. Flores on 08/02/2018 -Monitor for fever and abx PRN DM & peripheral neuropathy -FS and coverage -insulins, but hold PO med -pregabalin PE, Afib hx -On Pradaxa -Atenolol NAHUM, COPD -Oxygen -Spiriva -home CPAP use HTN -amlodipine, atenolol with parameter ,losartan BPH -Flomax, finasteride Depression -Zoloft GERD -pantoprazole HLD -statin Abnml cta chest:mild interstitial lung disease could represent early asbestosis. Mosaic perfusion abnormality noted in both lungs. Differential diagnostic consideration include air trapping, chronic venoocclusive disease, and bronchiolitis.Nodular liver suggestive of cirrhosis. 1.7 cm nonobstructing calculus in the right kidney -follow up with PCP Abnml CT abdominal:1. Loculated hyperdense fluid collection noted in the subcutaneous fat of the lower abdominal wall at the level of the symphysis pubis. This could represent an old hematoma/seroma. Infection not excluded. 2. Nodular liver suggest cirrhosis. 3. 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 4. Nonobstructing calculus in the right kidney. 5. Simple cysts in left kidney. 6. Gallstones. -Follow up with PCP, followup with his own surgeon, Dr. Eulalio Flores. hx Colon cancer: Patient to followup with his own doctor for continue screening PT/OT DVT prop with Pradaxa. DISPOSITION: passed HSE and outpt [facility] to be arranged by neurologist DISCHARGE PHYSICAL EXAMINATION: VITAL SIGNS: Please see below GENERAL APPEARANCE: weak HEENT: Normocephalic, PERRLA, Mucous moist, horizontal nystagmus CARDIOVASCULAR: S1,S2, pulse present, regularly, regular, no obvious murmur LUNGS: Equal air entry b/l, no wheezes or crackle ABDOMEN: Soft, BS present, no tenderness, no guarding GENITOURINARY: No Ewing EXTREMITIES: B/L no edema, capillary refill present SKIN: Warm, No fever PSYCHIATRIC: Normal mood and affect for current situation NEUROLOGICAL: Cranial nerves grossly intact Alert, not alert,Answer both question correctly,General Weakness,Normal Gaze ,No visual loss at this time No facial palsy ,upper and lower ext weakness, No limb ataxia ,Sensory normal No aphasia ,No Dysarthria ,No neglect DISCHARGE LABORATORY DATA, IMAGING STUDIES, MICROBIOLOGY: Please see below. TIME SPENT ON DISCHARGE: 30 MIN Vital Signs/I&Os Vital Signs Date Time Temp Pulse Resp B/P (MAP) Pulse Ox O2 Delivery O2 Flow Rate FiO2 07/26/18 09:15 18 94 Room Air 07/26/18 09:03 86 152/70 07/26/18 09:00 2.0 07/26/18 06:00 98.3 I&O- Last 24 Hours up to 6 AM 07/27/18 06:00 Intake Total 420 ml Output Total 0 ml Balance 420 ml Laboratory Data Labs 24H Laboratory Tests 2 07/26/18 11:31: Bedside Glucose (Misc Panel) 159H FSBS Laboratory Tests Test 07/26/18 11:31 Range/Units Bedside Glucose (Misc Panel) 159 83-110 MG/DL Microbiology Microbiology 07/23/18 Blood Culture - Preliminary, Resulted No Growth after 72 hours. All specime... Discharge Medications Scheduled Amlodipine Besylate (Norvasc) 5 Mg Tablet, 5 MG PO QHS, (Reported) Aspirin (Aspirin EC) 81 Mg Tablet.dr, 81 MG PO DAILY Atenolol (Atenolol) 100 Mg Tablet, 100 MG PO DAILY, (Reported) Dabigatran Etexilate Mesylate (Pradaxa) 75 Mg Capsule, 75 MG PO BID, (Reported) Finasteride (Finasteride) 5 Mg Tablet, 5 MG PO QHS, (Reported) Glimepiride (Glimepiride) 4 Mg Tablet, 6 MG PO BID, (Reported) Insulin Glargine,Hum.rec.anlog (Lantus Solostar) 100 Unit/1 Ml Insuln.pen, 30 UNITS SC QHS, (Reported) Insulin Lispro (Humalog Kwikpen U-100) 100 Unit/1 Ml Insuln.pen, 30 UNITS SC QHS, (Reported) Losartan Potassium (Losartan Potassium) 100 Mg Tablet, 100 MG PO DAILY, (Reported) Metformin HCl (Metformin HCl) 500 Mg Tablet, 500 MG PO BID, (Reported) Pantoprazole Sodium (Pantoprazole Sodium) 40 Mg Tablet.dr, 40 MG PO QHS, (Reported) Potassium Chloride (Klor-Con M10) 10 Meq Tab.er.prt, 10 MEQ PO DAILY, (Reported) Pravastatin Sodium (Pravastatin Sodium) 20 Mg Tablet, 20 MG PO DAILY, (Reported) Pregabalin (Lyrica) 100 Mg Capsule, 100 MG PO BID, (Reported) Probenecid (Probenecid) 500 Mg Tablet, 500 MG PO BID, (Reported) Sertraline Hcl (Zoloft) 100 Mg Tablet, 100 MG PO DAILY, (Reported) Sitagliptin Phosphate (Januvia) 100 Mg Tablet, 100 MG PO QHS, (Reported) Tamsulosin HCl (Flomax) 0.4 Mg Capsule, 0.4 MG PO QHS, (Reported) Tiotropium [place] (Spiriva) 18 Mcg Cap.w.dev, 1 INHALATION INH DAILY, (Reported) Scheduled PRN Acetaminophen (Acetaminophen) 500 Mg Tablet, 1,000 MG PO TID PRN for PAIN / FEVER, (Reported) Allergies Coded Allergies: No Known Allergies (Verified , 07/22/18) JASON NOBLES MD July 27, 2018 08:23
--- NOTE | 2018-07-27 20:01 | CR ---
DATE OF CONSULTATION: 07/24/2018 ATTENDING PROVIDER: Dr. Rebecca Lua. REASON FOR THE CONSULT: Bradycardia. HISTORY OF PRESENT ILLNESS: A 72-year-old male who was initially admitted on 07/22/2018 with confusion associated with some gastrointestinal (GI) symptoms of nausea and vomiting. Initial evaluation, including cardiac and neurology were benign and in the emergency room (ER), his vital signs revealed a blood pressure of 164/74 with a pulse of 76, respirations 16, and his maximum temperature was 98 degrees Fahrenheit with oxygen saturation of 89% that improved up to 94% on 1 liter nasal cannula of oxygen. Chest x-ray, as well as chest CT and head CT, were benign. He was admitted to the floor, on telemetry. On 07/23/2018, he had an episode where he slid down to the floor and he was severely weak. He continued to have episodes of nausea or vomiting. At the time, he was found to have some new neurological findings, nystagmus and neurology consult was called and on repeat head CT revealed a superior right cerebellar infarction. While on the floor, on 07/24/2018, it was reported that he was markedly bradycardic with a heart rate in the 40s and he was transferred down to progressive care unit (PCU) for further management and monitoring. Cardiology consult was called in view of the bradycardia. When I saw Mr. Gasper Marquez on that evening, he was supine in bed in no acute distress at rest. He denies any chest pain, shortness of breath, palpitations. He takes his medication regularly. He denies any prior history of bleeding. He has no focal manifestation. He states he is fine. He was concerned because he has a strong family history positive for cerebrovascular accident (CVA). There is no report of fever or chills. He is not coughing. He is no longer having nausea or vomiting. He has a past medical history positive for atrial fibrillation that has been chronic and persistent, and for which he has been on anticoagulation therapy with Pradaxa 75 mg by mouth twice a day, hypertension, hyperlipidemia, diabetes mellitus type 2, benign prostatic hypertrophy (BPH), anxiety/depression, chronic obstructive pulmonary disease (COPD), gastroesophageal reflux disease (GERD), gout, obesity and sleep apnea, pulmonary embolism. He denies any history of coronary artery disease, prior history of myocardial infarction, prior history of cerebrovascular accident (CVA). Past surgical history is positive for bilateral inguinal hernia repair and surgery done for colon cancer. He also has had surgery in his left lower extremity. MEDICATIONS AT HOME: - insulin Lispro 30 units daily at bedtime - insulin Guardian 30 units injected - Plavix 75 mg by mouth twice a day - Pravastatin 20 mg by mouth daily - sertraline 100 mg by mouth daily - Tamsulosin 0.4 mg by mouth nightly - metformin 400 mg tablets twice a day - probenecid 500 mg tablet twice a day - glimepiride 6 mg by mouth twice a day - finasteride 5 mg by mouth daily - Spiriva inhaler 80 mcg daily - atenolol 100 mg by mouth daily - amlodipine 5 mg by mouth daily - Tylenol as directed as needed for pain - potassium chloride (KCl) 10 mEq by mouth daily - pantoprazole 40 mg by mouth daily - Januvia 100 mg by mouth daily - Lyrica 100 mg by mouth twice a day - Losartan 100 mg by mouth daily SOCIAL HISTORY: Patient lives with his . He is a former smoker. He denies any EtOH abuse or illicit drugs. ADVANCE DIRECTIVE: Patient is a FULL CODE. PHYSICAL EXAMINATION: Patient is alert and oriented, in no acute distress at rest and very pleasant. His blood pressure when I saw him was 136/77 with a pulse of 64, respirations 20-24 and his maximum temperature was 98.7 degrees Fahrenheit with an oxygen saturation of 90-96% on nasal cannula at 1 liter per minute. EXAMINATION OF THE HEAD: Atraumatic. NECK: Supple without jugular venous distention (JVD). LUNGS: Did not reveal any wheezing or crackles. CARDIOVASCULAR EXAMINATION: Reveal an irregularly irregular heart sounds without gallops. The point of maximum impulse (PMI) is not displaced. There is no rub. I could not appreciate any murmurs. ABDOMEN: Soft and nontender. Bowel sounds are active. EXTREMITIES: With trace bilateral ankle edema. No cyanosis or clubbing. Peripheral pulses, dorsalis pedis +1 and equal. NEUROLOGICAL EXAMINATION: Grossly was limited, but no focal deficit. LABORATORIES: Complete blood count (CBC) with a WBC of 13.6, hemoglobin 12.5, hematocrit 40.0 and platelets 270,000. Basic metabolic panel (BMP) revealed a sodium of 142, potassium 4.5, chloride 108, CO2 26, BUN 20, creatinine 1.1, GFR more than 60, fasting glucose 157, calcium 8.4. Lipid profile revealed a total cholesterol of 203, triglycerides 152, LDL 109 and HDL of 64 with a total cholesterol/HDL ratio of 5.3. TSH was 3.1. Influenza A and B were negative on admission 07/22/2018. Head CT on 07/23/2018 revealed acute right cerebellar infarction, no bleed. There was old bilateral basal ganglia lacunar infarctions and small vessel ischemic disease, minimal volume loss. CT angiogram of the neck revealed mild stenosis of 40% in the right internal carotid artery at its origin and also noted in the left internal carotid artery. There is moderate to severe stenosis of the distal right and left cerebral arteries respectively at the level of the foramen magnum. CT angiogram of the head revealed no aneurysm or atrioventricular (AV) malformation, but atherosclerotic disease. Head CT on 07/24/2018 revealed acute right cerebellar infarction, unchanged from 07/23/2018. Head CT on 07/22/2018 revealed small vessel ischemic disease and minimal volume loss. Chest x-ray on 07/22/2018 revealed chronic interstitial changes. CT angiography of the chest on admission, 07/22/2018, revealed no acute pulmonary embolism. There were findings consistent with asbestosis and mild interstitial lung disease. There were also findings consistent with gallstones, bronchiolitis and a nodular liver suggestive of cirrhosis was noted, as well as a 1.7 cm nonobstructing calculus in the right kidney. EKG on admission 07/22/2018 revealed atrial fibrillation at 68 beats per minute and nonspecific ST-T abnormalities. Echocardiogram on 07/23/2018 revealed normal global left ventricular systolic function estimated at 55-60%, mildly enlarged left atrium, mildly dilated aortic root at 3.9 cm, trace pericardial effusion and mildly enlarged inferior vena cava. Telemetry strips were reviewed and on 07/23/2018 at around noontime, heart rate was reported to be between 40-50 beats per minute. There was also a 2.2 second pause. IMPRESSION: 1. Atrial fibrillation with a slow ventricular rate. Medication-induced due to the atenolol. The atenolol was discontinued and at the time when I saw him, heart rate was in the 60s. I recommend to continue to monitor him and if it remains above 55 beats per minute, to consider restarting the atenolol, but at a lower dose of 25 mg by mouth daily. He is going to be in the hospital, I believe, for the next few days and we can monitor his blood pressure and he should remain on telemetry. I have noticed that he has been on Pradaxa at 75 mg by mouth twice a day and he stated that as far as he remembers, he has been taking the same amount of Pradaxa, but cannot be entirely sure. I have reviewed his kidney function/GFR and he will benefit from 150 mg by mouth twice a day. It does not seem that he was being protected in addition to his overall comorbid conditions. Case was discussed with hospitalist, Dr. Rebecca Lua and she was told to discuss with neurology and if there is no contraindication, to consider Pradaxa at 150 mg by mouth twice a day. In the meantime, regarding his slow heart rate, he will continue on telemetry. Dr. Wooten will be covering on 07/25/2018, with us and he would be seeing him. 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 Dunn. It was a pleasure to participate in the care of Mr. Hemant Marquez for his underlying cardiac condition. From a cardiac point of view, he appears to be stable. Please do not hesitate to call if any questions.
== END 2018-07-26 12:30 | disposition home health service (06) | DRG 65 ==
LOC: EDBD 15:57 → M ED 15:57 → EDSEX 15:57 → M ED INP 20:53 → M MSPAV 22:42 → M PCU 07-24 17:17 → OBSVTOIN 07-25 10:56 → M MSPAV 07-25 20:12
PROVIDERS: ADMIT Internal Medicine; ATTEND General Practice
DX: I63.9 Cerebral infarction, unspecified (principal); J96.11 Chronic respiratory failure with hypoxia; I48.1 Persistent atrial fibrillation; E11.51 Type 2 diabetes mellitus with diabetic peripheral angiopathy without gangrene; K21.9 Gastro-esophageal reflux disease without esophagitis; G47.33 Obstructive sleep apnea (adult) (pediatric); J44.9 Chronic obstructive pulmonary disease, unspecified; I10 Essential (primary) hypertension; N40.0 Benign prostatic hyperplasia without lower urinary tract symptoms; K74.69 Other cirrhosis of liver; J61 Pneumoconiosis due to asbestos and other mineral fibers; N20.0 Calculus of kidney; K80.20 Calculus of gallbladder without cholecystitis without obstruction; N28.1 Cyst of kidney, acquired; Z85.038 Personal history of other malignant neoplasm of large intestine; Z86.711 Personal history of pulmonary embolism; Z79.4 Long term (current) use of insulin; Z79.899 Other long term (current) drug therapy; Z79.82 Long term (current) use of aspirin; E78.5 Hyperlipidemia, unspecified; E66.9 Obesity, unspecified; M10.9 Gout, unspecified; F41.9 Anxiety disorder, unspecified; Z87.891 Personal history of nicotine dependence; H55.00 Unspecified nystagmus; I48.2 Chronic atrial fibrillation

== ENCOUNTER 2018-07-27 23:10 | Emergency (ER) | payer OTHER ==
[~2018-07-27] VITALS: Ht 193 cm; Wt 186.0 kg
[~2018-07-27 23:10] MED LIST: ACET500T15 PO; ASPI81TAEC PO; ATEN100T PO; FINA5TAB2 PO; FLOM0.4C39 PO; GLIM4TAB PO; HUMA100I5 SC; JANU100T PO; KLOR10TA76 PO; LANTINJ4 SC; LOSA100T50 PO; METF500T13 PO; NORV5TAB PO; PANT40TA3 PO; PRAD75CA5 PO; PRAV20TA2 PO; PREG100CA PO; PROB500T29 PO; SPIR1CAP INH; ZOLO100T PO
[2018-07-27] MEDS ORDERED: DEXTROSE 50% 50 ML SYRINGE IV STA (23:20)
[2018-07-28 00:10] LABS: ALBUMIN 3.1 GM/DL (3.2-5.2); ALT/SGPT 42 U/L (12-78); BILIRUBIN,DIRECT 0.4 MG/DL (0.0-0.2); BLOOD UREA NITROGEN 17 MG/DL (7-18); CALCIUM LEVEL 8.6 MG/DL (8.8-10.2); CARBON DIOXIDE LEVEL 26 MEQ/L (21-32); CHLORIDE LEVEL 108 MEQ/L (98-107); CREATININE FOR GFR 1.07 MG/DL (0.70-1.30); GLOMERULAR FILTRATION RATE > 60.0 (>42); GLUCOSE, FASTING 52 MG/DL (70-100); POTASSIUM SERUM 3.1 MEQ/L (3.5-5.1); SODIUM LEVEL 141 MEQ/L (136-145); TOTAL PROTEIN 7.5 GM/DL (6.4-8.2)
[2018-07-28 00:31] LABS: BASO # 0.1 10^3/uL (0.0-0.2); BASO % 0.7 % (0.0-1.0); EOS # 0.1 10^3/uL (0.0-0.50); HEMATOCRIT 37.5 % (42.0-52.0); HEMOGLOBIN 12.4 g/dl (13.5-17.5); LYMPH # 1.3 10^3/uL (1.5-4.5); LYMPH % 9.6 % (24.0-44.0); MEAN CORPUSCULAR HEMOGLOBIN 31.9 pg (27.0-33.0); MEAN CORPUSCULAR HGB CONC 33.1 g/dl (32.0-36.5); MEAN CORPUSCULAR VOLUME 96.4 fl (80.0-96.0); MONO % 7.4 % (0.0-5.0); NEUTROPHILS # 10.7 10^3/uL (1.8-7.7); NEUTROPHILS % 80.4 % (36.0-66.0); PLATELET COUNT, AUTOMATED 235 10^3/uL (150-450); RED BLOOD COUNT 3.89 10^6/uL (4.30-6.10); WHITE BLOOD COUNT 13.3 10^3/uL (4.0-10.0)
--- NOTE | 2018-07-28 00:33 | REPVR ---
EXAM: CT Head Without Contrast EXAM DATE/TIME: 07/27/2018 11:42 PM CLINICAL HISTORY: 72 years old, male; Condition or disease; Cerebrovascular disease; Cerebral infarction; Unspecified; Other: See HX; Additional info: Dka TECHNIQUE: Imaging protocol: Axial computed tomography images of the head/brain without contrast. Radiation optimization: All CT scans at this facility use at least one of these dose optimization techniques: automated exposure control; mA and/or kV adjustment per patient size (includes targeted exams where dose is matched to clinical indication); or iterative reconstruction. COMPARISON: CT Head without contrast 07/25/2018 10:21 AM FINDINGS: Brain: No intracranial mass, focal mass effect or midline shift. No acute intracranial hemorrhage. Mild decreased attenuation in periventricular/centrum semiovale white matter. No focal effacement of cortical sulci to indicate new, acute cortical infarct. Evolving inferior right cerebellar infarct with no hemorrhagic transformation. Ventricles: Prominent ventricles and CSF spaces suggest parenchymal volume loss. Bones/joints: No calvarial fracture or destructive process. Sinuses: Visualized paranasal sinuses are unremarkable. Mastoid air cells: Mastoid air cells are normally aerated. Orbits: Visualized globes and orbits are unremarkable. Soft tissues: No focal extracranial soft tissue swelling. IMPRESSION: 1. No acute intracranial abnormality. 2. Evolving nonhemorrhagic inferior right cerebellar hemisphere infarct. No hemorrhagic transformation 3. Atrophy and chronic microangiopathic change in supratentorial white matter. Electronically signed by: Steve Lebron On 07/28/2018 00:33:20 AM
[2018-07-28] MEDS ORDERED: POTASSIUM CHLORIDE 10 MEQ SR TABLET PO ONE (01:30)
[2018-07-28] MEDS ORDERED: OMEP40CA2 PO (02:13)
[2018-07-28 02:32] VITALS: BP 171/75
== END 2018-07-28 02:33 | disposition home or self-care (01) ==
LOC: M ED 23:10 → EDBD 23:10 → M ED 07-28 02:33
DX: E11.649 Type 2 diabetes mellitus with hypoglycemia without coma (principal); I48.91 Unspecified atrial fibrillation; Z86.73 Personal history of transient ischemic attack (TIA), and cerebral infarction without residual deficits; Z87.891 Personal history of nicotine dependence; Z79.82 Long term (current) use of aspirin; Z79.4 Long term (current) use of insulin; Z79.899 Other long term (current) drug therapy

== ENCOUNTER → 2018-07-29 | Outpatient (CLI) | payer OTHER ==
[~2018-07-29] MED LIST changes: +OMEP40CA2 PO
== END ==
LOC: M WUC 13:59
PROVIDERS: ATTEND Urology
DX: C18.6 Malignant neoplasm of descending colon (principal)

== ENCOUNTER → 2018-08-10 | Outpatient (CLI) | payer OTHER ==
--- NOTE | 2018-08-11 08:31 | REP ---
CT Head without contrast HISTORY: Infarction COMPARISON: 07/27/2018 An area of decreased attenuation is present in the inferior right cerebellum. This is decreased in size compared to the previous study. This represents an evolving infarction. There is no hemorrhage. Areas of decreased attenuation are present in the basal ganglia. These represent old lacunar infarctions. Areas of the decreased attenuation are present in the periventricular white matter. This represents small-vessel ischemic disease. There is no intraparenchymal hemorrhage, acute infarct, mass or midline shift. The ventricular system and cortical sulci are dilated consistent with minimal volume loss. There is no extra cerebral collection. There is no fracture. The visualized sinuses are clear. IMPRESSION: 1. There is an evolving subacute infarction in the inferior right cerebellum. There is no hemorrhage. 2. Old bilateral basal ganglia lacunar infarctions. 3. Small vessel ischemic disease. 4. Minimal volume loss. Electronically Signed by Garret Carrillo MD 08/11/2018 08:22 A
== END ==
LOC: M RAD 17:30
PROVIDERS: ATTEND Psychiatry & Neurology Neurology
DX: I63.9 Cerebral infarction, unspecified (principal); I67.82 Cerebral ischemia; G31.9 Degenerative disease of nervous system, unspecified; Z86.73 Personal history of transient ischemic attack (TIA), and cerebral infarction without residual deficits

== ENCOUNTER → 2018-11-24 | Outpatient (CLI) | payer OTHER ==
[~2018-11-24] MED LIST changes: -GLIM4TAB PO; +GLIM4TAB5 PO; -OMEP40CA2 PO; +OMEP40CA97 PO
[2018-11-24 13:23] LABS: BASO # 0.1 10^3/uL (0.0-0.2); BASO % 0.9 % (0.0-1.0); EOS # 0.6 10^3/uL (0.0-0.50); EOS % 4.6 % (0.0-3.0); HEMOGLOBIN 12.5 g/dl (13.5-17.5); LYMPH # 2.6 10^3/uL (1.5-4.5); LYMPH % 19.7 % (24.0-44.0); MEAN CORPUSCULAR HEMOGLOBIN 30.6 pg (27.0-33.0); MEAN CORPUSCULAR HGB CONC 31.3 g/dl (32.0-36.5); MEAN CORPUSCULAR VOLUME 97.8 fl (80.0-96.0); MONO # 1.1 10^3/uL (0.0-0.8); MONO % 8.2 % (0.0-5.0); NEUTROPHILS # 8.8 10^3/uL (1.8-7.7); NEUTROPHILS % 66.1 % (36.0-66.0); PLATELET COUNT, AUTOMATED 297 10^3/uL (150-450); RED BLOOD COUNT 4.09 10^6/uL (4.30-6.10); WHITE BLOOD COUNT 13.4 10^3/uL (4.0-10.0)
[2018-11-24 13:38] LABS: ALBUMIN 3.2 GM/DL (3.2-5.2); BILIRUBIN,TOTAL 0.4 MG/DL (0.2-1.0); CALCIUM LEVEL 9.3 MG/DL (8.8-10.2); CREATININE FOR GFR 1.34 MG/DL (0.70-1.30); GLOMERULAR FILTRATION RATE 55.9 (>42); MAGNESIUM LEVEL 1.5 MG/DL (1.8-2.4); POTASSIUM SERUM 4.6 MEQ/L (3.5-5.1); TOTAL PROTEIN 7.1 GM/DL (6.4-8.2)
[2018-11-24 14:52] LABS: HEMOGLOBIN A1c 7.5 %
== END ==
LOC: M WUC 09:12
PROVIDERS: ATTEND Physician Assistant
DX: E87.6 Hypokalemia (principal); E11.649 Type 2 diabetes mellitus with hypoglycemia without coma; Z86.711 Personal history of pulmonary embolism

== ENCOUNTER → 2019-01-23 | Outpatient (CLI) | payer OTHER, MEDICARE ==
[~2019-01-23] MED LIST changes: +GLIM4TAB3 PO; -GLIM4TAB5 PO
== END ==
LOC: M WUC 13:47
PROVIDERS: ATTEND Surgery
DX: C18.7 Malignant neoplasm of sigmoid colon (principal)

== ENCOUNTER → 2019-06-07 | Outpatient (CLI) | payer OTHER, MEDICARE ==
[~2019-06-07] MED LIST changes: -GLIM4TAB3 PO; +GLIM4TAB5 PO
[2019-06-07 14:04] LABS: ALBUMIN 3.2 GM/DL (3.2-5.2); BILIRUBIN,TOTAL 0.5 MG/DL (0.2-1.0); CHOLESTEROL RISK RATIO 2.953 (<5); CREATININE FOR GFR 1.39 MG/DL (0.70-1.30); GLOMERULAR FILTRATION RATE 53.6 (>42); POTASSIUM SERUM 4.8 MEQ/L (3.5-5.1); TOTAL PROTEIN 7.4 GM/DL (6.4-8.2)
[2019-06-07 14:09] LABS: MAU/CREAT RATIO 97.4 MCG/MG (0.0-30.0)
[2019-06-07 15:28] LABS: HEMOGLOBIN A1c 7.3 %
== END ==
LOC: M WUC 10:33
PROVIDERS: ATTEND Family Medicine
DX: E11.22 Type 2 diabetes mellitus with diabetic chronic kidney disease (principal)

== ENCOUNTER → 2019-08-09 | Outpatient (CLI) | payer OTHER, MEDICARE | LOC: M WUC 14:51 | PROVIDERS: ATTEND Surgery | DX: C18.7 Malignant neoplasm of sigmoid colon (principal) ==

== ENCOUNTER 2019-09-12 15:15 | Inpatient (IN) | payer OTHER, MEDICARE ==
[~2019-09-12] VITALS: Ht 193 cm; Wt 174.2 kg
[~2019-09-12 15:15] MED LIST changes: +PANT40TA29 PO; -PANT40TA3 PO
[2019-09-12] MEDS ORDERED: ISOVUE-370 76% 100ML VIAL As Ordered ONE (15:45)
[2019-09-12 15:51] LABS: BASO # 0.1 10^3/uL (0.0-0.2); BASO % 0.9 % (0.0-1.0); EOS # 0.4 10^3/uL (0.0-0.5); EOS % 3.8 % (0.0-3.0); HEMOGLOBIN 12.8 g/dl (13.5-17.5); LYMPH # 2.3 10^3/uL (1.5-5.0); LYMPH % 21.1 % (24.0-44.0); MEAN CORPUSCULAR HEMOGLOBIN 30.6 pg (27.0-33.0); MEAN CORPUSCULAR HGB CONC 31.2 g/dl (32.0-36.5); MEAN CORPUSCULAR VOLUME 98.1 fl (80.0-96.0); MONO # 0.6 10^3/uL (0.0-0.8); MONO % 5.6 % (0.0-5.0); NEUTROPHILS # 7.4 10^3/uL (1.5-8.5); NEUTROPHILS % 68.2 % (36.0-66.0); PLATELET COUNT, AUTOMATED 302 10^3/uL (150-450); RED BLOOD COUNT 4.18 10^6/uL (4.30-6.10); WHITE BLOOD COUNT 10.8 10^3/uL (4.0-10.0)
[2019-09-12] MEDS ORDERED: TRUL0.5I SC (15:54)
[2019-09-12] MEDS ORDERED: JARD1TAB PO (15:54)
[2019-09-12] MEDS ORDERED: ACET25TA12 PO (15:54)
[2019-09-12 16:02] LABS: INR 1.22; PROTHROMBIN TIME 15.1 SECONDS (11.8-14.0)
[2019-09-12 16:03] LABS: PARTIAL THROMBOPLASTIN TIME 37.6 SECONDS (25.0-38.4)
--- NOTE | 2019-09-12 16:12 | REP ---
REASON FOR EXAM: Stroke-like symptoms. COMPARISON: 07/22/2018, the latest prior. The technique utilized in obtaining the radiograph has magnified the cardiac silhouette and accentuated the interstitial markings. There is cardiomegaly accentuated by technique. The lungs maddox are additionally hypo-expanded further accentuating the interstitial markings. When compared to the latest prior examination, there does not appear to be any significant change. No definite acute patchy parenchymal opacities or pleural effusions have developed. IMPRESSION: Technique and stable appearing chronic changes. Electronically Signed by Jose Montiel DO 09/12/2019 05:04 P
--- NOTE | 2019-09-12 16:31 | REPVR ---
PROCEDURE INFORMATION: Exam: CT Head Without Contrast Exam date and time: 09/12/2019 4:05 PM Age: 73 years old Clinical indication: Syncope and collapse; Additional info: CVA - nursing interventions must not delay CT TECHNIQUE: Imaging protocol: Computed tomography of the head without contrast. Radiation optimization: All CT scans at this facility use at least one of these dose optimization techniques: automated exposure control; mA and/or kV adjustment per patient size (includes targeted exams where dose is matched to clinical indication); or iterative reconstruction. COMPARISON: CT Head without contrast 08/10/2018 6:00 PM FINDINGS: Brain: Vascular calcifications.There are moderate periventricular and subcortical lucencies consistent with chronic microvascular ischemic changes. The alvarado-white differentiation is maintained. No hemorrhage. No edema. Ventricles: Normal. No ventriculomegaly. Bones/joints: Unremarkable. No acute fracture. Sinuses: Mild mucosal thickening of the right maxillary sinus. Mucous retention cyst/polyp of the left maxillary sinus. Mastoid air cells: Visualized mastoid air cells are well aerated. Soft tissues: Unremarkable. IMPRESSION: No acute intracranial abnormality. Chronic microvascular ischemic changes. Electronically signed by: Evans Pittman On 09/12/2019 16:31:42 PM
--- NOTE | 2019-09-12 16:40 | REPVR ---
PROCEDURE INFORMATION: Exam: CT Angiography Neck With Contrast Exam date and time: 09/12/2019 4:05 PM Age: 73 years old Clinical indication: Pain; Headache TECHNIQUE: Imaging protocol: Computed tomography angiography of the neck with intravenous contrast. 3D rendering: MIP and/or 3D reconstructed images were created by the technologist. Radiation optimization: All CT scans at this facility use at least one of these dose optimization techniques: automated exposure control; mA and/or kV adjustment per patient size (includes targeted exams where dose is matched to clinical indication); or iterative reconstruction. Contrast material: ISO 370; Contrast volume: 100 ml; Contrast route: INTRAVENOUS (IV); COMPARISON: CT ANGIO NECK 07/23/2018 6:02 PM FINDINGS: Right common carotid artery: Extensive calcified plaque in the distal right common carotid artery and proximal internal carotid artery Right internal carotid artery: There is approximately 25% stenosis of the proximal right internal carotid artery with calcified plaque. Right external carotid artery: No occlusion or stenosis of the origin. Right vertebral artery: No stenosis. No dissection or occlusion. Left common carotid artery: No stenosis. No dissection or occlusion. Left internal carotid artery: There is approximately 39% stenosis of the proximal left internal carotid artery with calcified plaque. Left external carotid artery: No occlusion or stenosis of the origin. Left vertebral artery: No stenosis. No dissection or occlusion. Bones/joints: There is multilevel uncovertebral and facet hypertrophy with neural foramina narrowing. Soft tissues: Normal. No significant soft tissue swelling. IMPRESSION: Right: Extensive calcified plaque in the distal right common carotid artery and proximal right internal carotid artery with approximately 25% stenosis. Vertebral artery is patent. Left: Extensive calcified plaque in the distal left common carotid artery and proximal left internal carotid artery with approximately 39% stenosis of the proximal left internal carotid artery. The vertebral artery is patent. REFERENCES: NASCET CRITERIA. The degree of internal carotid artery stenosis is based on NASCET criteria. Normal is no stenosis. Mild is less than 50% stenosis. Moderate is 50-69% stenosis. Severe is 70% to 99% stenosis. Total occlusion is no detectable patent lumen. Electronically signed by: Evans Pittman On 09/12/2019 16:39:47 PM
--- NOTE | 2019-09-12 16:43 | REPVR ---
PROCEDURE INFORMATION: Exam: CT Angiography Head With Contrast Exam date and time: 09/12/2019 4:05 PM Age: 73 years old Clinical indication: Pain; Headache; Additional info: CVA - nursing interventions must not delay CT TECHNIQUE: Imaging protocol: Computed tomography angiography of the head with intravenous contrast. 3D rendering: MIP and/or 3D reconstructed images were created by the technologist. Radiation optimization: All CT scans at this facility use at least one of these dose optimization techniques: automated exposure control; mA and/or kV adjustment per patient size (includes targeted exams where dose is matched to clinical indication); or iterative reconstruction. Contrast material: ISO 370; Contrast volume: 100 ml; Contrast route: INTRAVENOUS (IV); COMPARISON: CT ANGIO HEAD 07/23/2018 6:02 PM FINDINGS: Anterior cerebral arteries: No occlusion or significant stenosis. No aneurysm. Right internal carotid artery: Intracranial segment is patent with no significant stenosis or occlusion. No aneurysm. Right middle cerebral artery: No occlusion or significant stenosis. No aneurysm. Right posterior cerebral artery: No occlusion or significant stenosis. No aneurysm. Right vertebral artery: No occlusion or significant stenosis. No aneurysm. Left internal carotid artery: Intracranial segment is patent with no significant stenosis or occlusion. No aneurysm. Left middle cerebral artery: No occlusion or significant stenosis. No aneurysm. Left posterior cerebral artery: No occlusion or significant stenosis. No aneurysm. Left vertebral artery: No occlusion or significant stenosis. No aneurysm. Basilar artery: No occlusion or significant stenosis. No aneurysm. Other vasculature: Severe stenosis of bilateral vertebral arteries with calcified plaque. Moderate stenosis of bilateral internal carotid arteries in the cavernous portion with calcified plaque. IMPRESSION: No acute abnormality. Electronically signed by: Evans Pittman On 09/12/2019 16:43:32 PM
[2019-09-12] MEDS ORDERED: hydrALAZINE 20MG/ML 1ML VIAL (J0360 PER 20MG) IV STA (17:15)
[2019-09-12 18:21] LABS: CK-MB VALUE MASS < 1.0 NG/ML (<3.6); CPK CREATINE PHOSPHOKINASE 42 U/L (39-308); MB/CK RELATIVE INDEX 2.38 (< OR =4); TROPONIN I 0.02 NG/ML (< 0.10)
[2019-09-12] MEDS ORDERED: ACETAMINOPHEN TAB 650MG DOSE (2X325MG) PO PRN (20:00)
[2019-09-12] MEDS ORDERED: GLUCOSE 4GM CHEW TABLET PO PRN (20:00)
[2019-09-12] MEDS ORDERED: GLUCAGON INJ 1MG VIAL SC PRN (20:00)
[2019-09-12] MEDS ORDERED: ONDANSETRON 4MG/2ML VIAL IV PRN (20:00)
[2019-09-12] MEDS ORDERED: DEXTROSE 50% 50 ML SYRINGE IV PRN (20:00)
--- NOTE | 2019-09-12 20:56 | HPEPDOC ---
General Date of Admission Sep 12, 2019 at 19:48 Date of Service: Sep 12, 2019 Chief Complaint The patient is a 73-year-old male who presented to the ER with a headache History of Present Illness Patient is a 73-year-old male with a PMHx of HTN, IDDM2, DLP, CVA (2018), PE on Pradaxa (1999), COPD, Neuropathy, Depression / Anxiety, BPH, Morbid obesity, GERD, who presents to the emergency room after experiencing headache earlier today. Patient reports that 11:30 this morning he experienced a headache while he was sitting up at the table. Patient reports the headache was a 10 / 10, occurring at the posterior side of his head reported that it was an aching pressure like intensity. Patient denied any nausea, vomiting or any sensitivity to light or sound. Upon arrival to emergency room, patient had received medications and his pain is currently at 3-4/10. Patient currently denies any chest pain, palpitations, cough, fever, chills, abdominal pain, constipation, diarrhea or urinary discomfort. He does report difficulty with urination because of his enlarged prostate. Patient reports that the last time he spends a headache this severe. He had a stroke. Of note, patient has recently seen cardiology and had his blood pressure medication produced. , Atenolol was reduced from 100 to 50 mg after he was found to be bradycardic. Home Medications Scheduled Atenolol (Atenolol) 100 Mg Tablet, 100 MG PO DAILY, (Reported) Dabigatran Etexilate Mesylate (Pradaxa) 75 Mg Capsule, 150 MG PO BID, (Reported) Dulaglutide (Trulicity) 1.5 Mg/0.5 Ml Pen.injctr, 1.5 MG SC Q7D, (Reported) Empagliflozin (Jardiance) 10 Mg Tablet, 10 MG PO DAILY, (Reported) Finasteride (Finasteride) 5 Mg Tablet, 5 MG PO QHS, (Reported) Insulin Glargine,Hum.rec.anlog (Lantus Solostar) 100 Unit/1 Ml Insuln.pen, 40 UNITS SC QHS, (Reported) Insulin Lispro (Humalog Kwikpen U-100) 100 Unit/1 Ml Insuln.pen, 30 UNITS SC QHS, (Reported) Losartan Potassium (Losartan Potassium) 100 Mg Tablet, 100 MG PO DAILY, (Reported) Metformin HCl (Metformin HCl) 500 Mg Tablet, 500 MG PO BID, (Reported) Omeprazole (Omeprazole) 40 Mg Capsule.dr, 1 CAP PO DAILY Pantoprazole Sodium (Pantoprazole Sodium) 40 Mg Tablet.dr, 40 MG PO QHS, (Reported) Potassium Chloride (Klor-Con M10) 10 Meq Tab.er.prt, 10 MEQ PO DAILY, (Reported) Pravastatin Sodium (Pravastatin Sodium) 20 Mg Tablet, 20 MG PO DAILY, (Reported) Pregabalin (Lyrica) 100 Mg Capsule, 100 MG PO BID, (Reported) Probenecid (Probenecid) 500 Mg Tablet, 500 MG PO BID, (Reported) Sertraline Hcl (Zoloft) 100 Mg Tablet, 100 MG PO DAILY, (Reported) Tamsulosin HCl (Flomax) 0.4 Mg Capsule, 0.4 MG PO QHS, (Reported) Tiotropium Remington (Spiriva) 18 Mcg Cap.w.dev, 1 INHALATION INH DAILY, (Reported) Scheduled PRN Acetaminophen/Diphenhydramine (Acetaminophen Pm Caplet) 1 Each Tablet, 2 TAB PO for SLEEP, (Reported) Allergies Coded Allergies: No Known Allergies (Verified , 07/27/18) Past Medical History Medical History HTN, IDDM2, DLP, PE on Pradaxa (1999), COPD, Neuropathy, Depression / Anxiety, BPH, Morbid obesity, GERD Surgical History Bilateral inguinal hernia repair Cardiac catheterization completed reported normal Colon cancer status post colonic resection 2015 Left ankle surgery with plates and screws Cystoscopy Family History - Family history was reviewed and is noncontributory to this auscultation Social History - Denies the use of alcohol or illicit drugs; patient quit smoking 48 years prior - Lives with Review of Systems Other systems 10 point review of systems complete, all negative otherwise stated in HPI Vital Signs - Vitals: BP 174/84, HR 72, RR 18, Sat 97%RA, Temp 97.7F - General: Lying in bed, Speaking in full sentences, AAOx3 - HEENT: NC, AT, PERRLA - CVS: IrIr, +S1S2, - Murmurs / rubs / gallops - Lungs: Fair air entry bilaterally, No appreciable wheezing / rales / rhonchi - Abdomen: Soft, Non-distended, Non-tender - Extremities: 1+ edema at L leg, trace edema at R leg, No calf tenderness - Neuro: No focal motor or sensory deficit - Skin: No visible rashes Laboratory Data Labs 24H Laboratory Tests 2 09/12/19 15:37: Immature Granulocyte % (Auto) 0.4, Neutrophils (%) (Auto) 68.2H, Lymphocytes (%) (Auto) 21.1L, Monocytes (%) (Auto) 5.6H, Eosinophils (%) (Auto) 3.8H, Basophils (%) (Auto) 0.9, Neutrophils # (Auto) 7.4, Lymphocytes # (Auto) 2.3, Monocytes # (Auto) 0.6, Eosinophils # (Auto) 0.4, Basophils # (Auto) 0.1, Nucleated Red Blood Cells % (auto) 0.0 09/12/19 15:38: Prothrombin Time 15.1H, Prothromb Time International Ratio 1.22, Activated Partial Thromboplast Time 37.6 09/12/19 15:44: POC Glucose (Misc Panel) 215H, POC Sodium (Misc Panel) 140, POC Potassium (Misc Panel) 4.6, POC Chloride (Misc Panel) 104, POC Total CO2 (Misc Panel) 25.0, POC Blood Urea Nitrogen (Misc Panel 22, POC Ionized Calcium (Misc Panel) 4.8, POC Creatinine (Misc Panel) 1.1, POC Hematocrit (Misc Panel) 44.0 09/12/19 17:38: Total Creatine Kinase 42, Creatine Kinase MB < 1.0, Creatine Kinase MB Relative Index 2.38, Troponin I 0.02 CBC/BMP Laboratory Tests 09/12/19 15:37 Plan / VTE VTE Prophylaxis Ordered?: Yes Plan Plan Headache / hypertensive urgency - Patient presented to the emergency room with complaints of headache that started at 11:30 AM - Headache has improved with blood pressure control - Physical without any focal neurologic deficits - Currently, patients systolic blood pressures in 170s - CT head 09/11: No acute intracranial abnormality. - CTA neck 09/11: Right: Extensive calcified plaque in the distal right common carotid artery and proximal right internal carotid artery with approximately 25% stenosis. Vertebral artery is patent. Left: Extensive calcified plaque in the distal left common carotid artery and proximal left internal carotid artery with approximately 39% stenosis of the proximal left internal carotid artery. The vertebral artery is patent. - CTA head 09/11: No acute abnormality. - ER provider has discussed case with neurology; plan for repeat CT imaging of head 09/12 AM (re: MRI cannot be completed due to large habitus) - Will check cardiac risk profile - c/w Pravastatin - Patient is currently on anticoagulation with Pradaxa Hypertensive urgency - Of note, patient had his atenolol dose reduced from 100 mg to 50 mg - At this point, will start patient on hydralazine IV - Will reduce blood pressure between SBP 140-160, until the results of CT scan r esults tomorrow AM (re: Permissive HTN) Leg lower extremity edema (L>R) - Patient reports that this has been there chronically - Patient is currently on anticoagulation with Pradaxa IDDM2 - Will start ISS and adjusted dose of long-acting insulin DLP - c/w Pravastatin PE - c/w Pradaxa (1999) Atrial fibrillation History - In the ER, patient was found to be in A. fib with slow ventricular response - c/w rate control with atenolol with adjusted dose for now (50 instead of 100) - c/w full anticoagulation with Pradaxa - Will trend troponins - Patient follows with Dr. Wooten as an outpatient COPD - No evidence of exacerbation at this time - CXR 09/11: Technique and stable appearing chronic changes. - c/w inhaled therapy as ordered Neuropathy - c/w Pregabalin Depression / Anxiety - c/w Sertraline BPH - c/w Finasteride and Tamsulosin Morbid obesity - BMI 46.7 - Complicating medical care GERD - c/w PPI DVT prophylaxis - Will c/w full anticoagulation with Pradaxa PATRICK REDMAN MD Sep 12, 2019 20:56
[2019-09-12 21:00] VITALS: BP 184/80
[2019-09-12] MEDS ORDERED: FINASTERIDE 5 MG TAB PO SCH (21:00)
[2019-09-12] MEDS ORDERED: HumaLOG INSULIN (NovoLOG) PER UNIT SC SCH (21:00)
[2019-09-12] MEDS ORDERED: TAMSULOSIN 0.4 MG CAP PO SCH (21:00)
[2019-09-12] MEDS ORDERED: SLF 3 ML SYR IV PRN (21:45)
--- NOTE | 2019-09-12 21:45 | ECGEPIP ---
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
[2019-09-12] MEDS: hydrALAZINE 20MG/ML 1ML VIAL (J0360 PER 20MG) IV SCH (22:06)
[2019-09-12] MEDS: SLF 3 ML SYR IV SCH (22:07)
[2019-09-12] MEDS ORDERED: LABETALOL 100MG/20ML VIAL IV SCH (23:00)
[2019-09-12] MEDS ORDERED: PREVAGEN PO (23:01)
[2019-09-12] MEDS: DABIGATRAN ETEXILATE 75 MG CAP (PRADAXA) PO SCH (23:28)
[2019-09-13] VITALS: BP 170/80
[2019-09-13 01:00] VITALS: BP 162/70
[2019-09-13 01:11] LABS: CK-MB VALUE MASS < 1.0 NG/ML (<3.6); CPK CREATINE PHOSPHOKINASE 63 U/L (39-308); MB/CK RELATIVE INDEX 1.59 (< OR =4); TROPONIN I < 0.02 NG/ML (< 0.10)
[2019-09-13] MEDS: SLF 3 ML SYR IV SCH ×2 (03:32→14:00)
[2019-09-13] MEDS: hydrALAZINE 20MG/ML 1ML VIAL (J0360 PER 20MG) IV SCH ×3 (03:32→15:00)
[2019-09-13 04:00] VITALS: BP 180/76
[2019-09-13] MEDS ORDERED: LOSARTAN 50MG TABLET PO SCH (05:43)
[2019-09-13] MEDS ORDERED: atenoloL 50 MG TAB PO SCH (05:43)
[2019-09-13 05:46] LABS: BASO # 0.1 10^3/uL (0.0-0.2); BASO % 0.7 % (0.0-1.0); EOS # 0.2 10^3/uL (0.0-0.5); EOS % 1.7 % (0.0-3.0); HEMATOCRIT 37.3 % (42.0-52.0); LYMPH # 2.4 10^3/uL (1.5-5.0); LYMPH % 18.7 % (24.0-44.0); MEAN CORPUSCULAR HEMOGLOBIN 30.2 pg (27.0-33.0); MEAN CORPUSCULAR HGB CONC 32.2 g/dl (32.0-36.5); MEAN CORPUSCULAR VOLUME 93.7 fl (80.0-96.0); MONO # 0.9 10^3/uL (0.0-0.8); MONO % 6.6 % (0.0-5.0); NEUTROPHILS # 9.3 10^3/uL (1.5-8.5); PLATELET COUNT, AUTOMATED 277 10^3/uL (150-450); RED BLOOD COUNT 3.98 10^6/uL (4.30-6.10); WHITE BLOOD COUNT 12.9 10^3/uL (4.0-10.0)
[2019-09-13 05:50] VITALS: BP 180/76
[2019-09-13 06:19] LABS: BLOOD UREA NITROGEN 18 MG/DL (7-18); CALCIUM LEVEL 8.9 MG/DL (8.8-10.2); CARBON DIOXIDE LEVEL 25 MEQ/L (21-32); CHLORIDE LEVEL 108 MEQ/L (98-107); CHOLESTEROL LEVEL 178 MG/DL (<200); CHOLESTEROL RISK RATIO 2.696 (<5); CK-MB VALUE MASS < 1.0 NG/ML (<3.6); CPK CREATINE PHOSPHOKINASE 133 U/L (39-308); CREATININE FOR GFR 1.07 MG/DL (0.70-1.30); GLOMERULAR FILTRATION RATE > 60.0 (>42); GLUCOSE, FASTING 141 MG/DL (70-100); HDL CHOLESTEROL 66 MG/DL (>40); LDL CHOLESTEROL 83 MG/DL (<100); MAGNESIUM LEVEL 1.6 MG/DL (1.8-2.4); MB/CK RELATIVE INDEX 0.75 (< OR =4); NON-HDL-C 112 MG/DL; POTASSIUM SERUM 4.6 MEQ/L (3.5-5.1); SODIUM LEVEL 140 MEQ/L (136-145); TRIGLYCERIDES LEVEL 146 MG/DL (<150); TROPONIN I < 0.02 NG/ML (< 0.10)
--- NOTE | 2019-09-13 06:32 | REPVR ---
PROCEDURE INFORMATION: Exam: CT Head Without Contrast Exam date and time: 09/13/2019 6:00 AM Age: 73 years old Clinical indication: Pain; Headache not specified; Additional info: Headache / evaluate for CVA TECHNIQUE: Imaging protocol: Computed tomography of the head without contrast. Radiation optimization: All CT scans at this facility use at least one of these dose optimization techniques: automated exposure control; mA and/or kV adjustment per patient size (includes targeted exams where dose is matched to clinical indication); or iterative reconstruction. COMPARISON: CT Head without contrast 09/12/2019 4:02 PM FINDINGS: Brain: There is mild, diffuse parenchymal volume loss. A focus of low attenuation in the right basal ganglia is again noted, most consistent with a chronic lacunar infarct vs a prominent VR space. There is mild diffuse heterogeneity of the white matter attenuation, consistent with chronic white matter ischemic changes. The cortical/white matter interfaces are preserved throughout the brain. There is no evidence of intracranial hemorrhage. Ventricles: The ventricular system demonstrates mild diffuse compensatory enlargement. Bones/joints: No acute fractures of the skull are identified. Sinuses: There is a fluid level in the partially visualized left maxillary sinus. Mild patchy mucoperiosteal thickening is again seen in the bilateral maxillary, ethmoid, and sphenoid sinuses. Mastoid air cells: The mastoid air cells are clear. Vasculature: Atherosclerotic calcifications are seen in the cerebral arteries at the skull base. Soft tissues: The soft tissues appear unremarkable. IMPRESSION: 1. No evidence of acute infarct or hemorrhage. 2. Right basal ganglia chronic lacunar infarct versus prominent VR space, unchanged. 3. Evidence of acute on chronic sinusitis. Electronically signed by: Geri Ruano On 09/13/2019 06:32:35 AM
[2019-09-13 08:00] VITALS: BP 132/64
[2019-09-13] MEDS ORDERED: TIOTROPIUM INHALER/CAPSULE (SPIRIVA) INH SCH (08:00)
[2019-09-13] MEDS ORDERED: PREGABALIN 100 MG CAP (LYRICA) PO SCH (09:00)
[2019-09-13] MEDS ORDERED: POTASSIUM CHLORIDE 10 MEQ SR TABLET PO SCH (09:00)
[2019-09-13] MEDS ORDERED: PRAVASTATIN 20 MG TAB PO SCH (09:00)
[2019-09-13] MEDS ORDERED: SERTRALINE 100 MG TAB PO SCH (09:00)
[2019-09-13] MEDS ORDERED: OMEPRAZOLE 20 MG CAP PO SCH (09:00)
[2019-09-13] MEDS ORDERED: PROBENECID 500 MG TAB PO SCH (09:00)
[2019-09-13] MEDS: DABIGATRAN ETEXILATE 75 MG CAP (PRADAXA) PO SCH (09:05)
[2019-09-13] MEDS: HumaLOG INSULIN (NovoLOG) PER UNIT SC SCH ×2 (09:05→12:18)
[2019-09-13] MEDS ORDERED: ATEN50TA2 PO (11:56)
[2019-09-13] MEDS ORDERED: AMLO10TA PO (11:56)
[2019-09-13 12:00] VITALS: BP 132/64
[2019-09-13] MEDS ORDERED: MAGNESIUM GLUCONATE 500 MG TAB PO ONE (14:00)
--- NOTE | 2019-09-17 07:56 | ECHO ---
DATE OF SERVICE: 09/13/2019 REFERRING PROVIDER: Dr. Jackie Mcduffie PATIENT LOCATION: Room 3223. REASON FOR THE STUDY: CVA. 2D MEASUREMENTS: IVS: 1.4 cm LV: 5.4 cm LVPW: 1.4 cm LA: 5.6 cm Aorta: 3.4 cm IVC: 2.3 cm DOPPLER MEASUREMENTS: Peak velocity across the aortic valve: 1.4 m/s Peak velocity across the LVOT: 0.87 m/s Mitral E: 0.99 2D COMMENTS: 1. Mildly increased left ventricular wall thickness with normal left ventricular size and a normal global left ventricular systolic function. The estimated left ventricular systolic ejection fraction is 60-65%. 2. The left atrium appeared to be mildly to moderately enlarged. The right atrium and the right ventricle also appeared to be enlarged. The right ventricular free wall seems to be hypokinetic in limited views. 3. The atrial septum did not reveal any defect. 4. Normal aortic root. 5. No pericardial effusion seen. 6. Mildly calcified aortic valve with normal leaflet excursion. Mildly calcified mitral annulus with normal anterior mitral valve leaflet motion. The tricuspid valve appeared to be normal in limited views. The pulmonic valve and proximal pulmonary artery branches were not well visualized. 7. The inferior vena cava was mildly enlarged, central venous pressure is probably elevated. DOPPLER: It detects trace aortic regurgitation and trace mitral regurgitation. Assessment of the left ventricular diastolic function was limited in view of the underlying arrhythmias. IMPRESSION: 1. Normal global left ventricular systolic function with probably mild concentric left ventricular hypertrophy. Assessment of the left ventricular end diastolic function was limited in view of the underlying arrhythmias. 2. Mildly to moderately enlarged left atrium with mitral annulus calcification and trace mitral regurgitation. 3. Aortic valve sclerosis with trace aortic regurgitation. No aortic stenosis. 4. The right heart chambers appeared to be dilated in limited views. 5. The study was technically limited due to poor acoustic window. 6. Prior study was on 07/23/2018, and at that time, left ventricular systolic function also was normal and the study was also limited due to poor acoustic window. Tricuspid regurgitation then was noted. MTDD
--- NOTE | 2019-09-21 19:11 | DS.PDOC ---
Discharge Summary General Date of Admission Sep 12, 2019 at 19:48 Date of Discharge 09/13/19 Discharge Summary PROCEDURES PERFORMED DURING STAY: [None]. ADMITTING DIAGNOSES: Headache / hypertensive urgency Leg lower extremity edema IDDM2 Hyperlipidemia History of pulmonary emboli Neuropathy COPD Atrial fibrillation History Morbid obesity GERD BPH Depression / Anxiety DISCHARGE DIAGNOSES: Headache / hypertensive urgency Leg lower extremity edema IDDM2 Hyperlipidemia History of pulmonary emboli Neuropathy COPD Atrial fibrillation History Morbid obesity GERD BPH Depression / Anxiety COMPLICATIONS/CHIEF COMPLAINT: Headache Uncontrolled Hypertension. HISTORY OF PRESENT ILLNESS: Patient is a 73-year-old male with a PMHx of HTN, IDDM2, DLP, CVA (2018), PE on Pradaxa (1999), COPD, Neuropathy, Depression / Anxiety, BPH, Morbid obesity, GERD, who presents to the emergency room after experiencing headache earlier today. Patient reports that 11:30 this morning he experienced a headache while he was sitting up at the table. Patient reports the headache was a 10 / 10, occurring at the posterior side of his head reported that it was an aching pressure like intensity. Patient denied any nausea, vomiting or any sensitivity to light or sound. Upon arrival to emergency room, patient had received medications and his pain is currently at 3-4/10. Patient currently denies any chest pain, palpitations, cough, fever, chills, abdominal pain, constipation, diarrhea or urinary discomfort. He does report difficulty with urination because of his enlarged prostate. Patient reports that the last time he spends a headache this severe. He had a stroke. Of note, patient has recently seen cardiology and had his blood pressure medication produced. , Atenolol was reduced from 100 to 50 mg after he was found to be bradycardic. HOSPITAL COURSE: During hospital stay following issue addressed Headache / hypertensive urgency - Patient presented to the emergency room with complaints of headache that started at 11:30 AM - Headache has improved with blood pressure control - Physical without any focal neurologic deficits - CT head 09/11: No acute intracranial abnormality. - CTA neck 09/11: Right: Extensive calcified plaque in the distal right common carotid artery and proximal right internal carotid artery with approximately 25% stenosis. Vertebral artery is patent. Left: Extensive calcified plaque in the distal left common carotid artery and proximal left internal carotid artery with approximately 39% stenosis of the proximal left internal carotid artery. The vertebral artery is patent. - CTA head 09/11: No acute abnormality. - ER provider has discussed case with neurology; repeated CT negative Echo was done see results below Hypertensive urgency - Of note, patient had his atenolol dose reduced from 100 mg to 50 mg -Patient received treatment with IV hydralazine Leg lower extremity edema (L>R) - Patient reports that this has been there chronically - Patient is currently on anticoagulation with Pradaxa CTA was done and negative for PE IDDM2 - Will start ISS and adjusted dose of long-acting insulin DLP - c/w Pravastatin PE - c/w Pradaxa (1999) Atrial fibrillation History - In the ER, patient was found to be in A. fib with slow ventricular response - c/w rate control with atenolol with adjusted dose for now (50 instead of 100) - c/w full anticoagulation with Pradaxa - Patient follows with Dr. Wooten as an outpatient COPD - No evidence of exacerbation at this time - CXR 09/11: Technique and stable appearing chronic changes. - c/w inhaled therapy as ordered Neuropathy - c/w Pregabalin Depression / Anxiety - c/w Sertraline BPH - c/w Finasteride and Tamsulosin Morbid obesity - BMI 46.7 - Complicating medical care GERD - c/w PPI DVT prophylaxis - Will c/w full anticoagulation with Pradaxa DISCHARGE MEDICATIONS: Please see below. ALLERGIES: Please see below. PHYSICAL EXAMINATION ON DISCHARGE: VITAL SIGNS: Please see below. - General: Lying in bed, Speaking in full sentences, AAOx3 - HEENT: NC, AT, PERRLA - CVS: IrIr, +S1S2, - Murmurs / rubs / gallops - Lungs: Fair air entry bilaterally, No appreciable wheezing / rales / rhonchi - Abdomen: Soft, Non-distended, Non-tender - Extremities: 1+ edema at L leg, trace edema at R leg, No calf tenderness - Neuro: No focal motor or sensory deficit - Skin: No visible rashes LABORATORY DATA: Please see below. IMAGING: COMPARISON: CT Head without contrast 09/12/2019 4:02 PM FINDINGS: Brain: There is mild, diffuse parenchymal volume loss. A focus of low attenuation in the right basal ganglia is again noted, most consistent with a chronic lacunar infarct vs a prominent VR space. There is mild diffuse heterogeneity of the white matter attenuation, consistent with chronic white matter ischemic changes. The cortical/white matter interfaces are preserved throughout the brain. There is no evidence of intracranial hemorrhage. Ventricles: The ventricular system demonstrates mild diffuse compensatory enlargement. Bones/joints: No acute fractures of the skull are identified. Sinuses: There is a fluid level in the partially visualized left maxillary sinus. Mild patchy mucoperiosteal thickening is again seen in the bilateral maxillary, ethmoid, and sphenoid sinuses. Mastoid air cells: The mastoid air cells are clear. Vasculature: Atherosclerotic calcifications are seen in the cerebral arteries at the skull base. Soft tissues: The soft tissues appear unremarkable. IMPRESSION: 1. No evidence of acute infarct or hemorrhage. 2. Right basal ganglia chronic lacunar infarct versus prominent VR space, unchanged. 3. Evidence of acute on chronic sinusitis. Electronically signed by: Geri Ruano On 09/13/2019 06:32:35 AM DOPPLER MEASUREMENTS: Peak velocity across the aortic valve: 1.4 m/s Peak velocity across the LVOT: 0.87 m/s Mitral E: 0.99 2D COMMENTS: 1. Mildly increased left ventricular wall thickness with normal left ventricular size and a normal global left ventricular systolic function. The estimated left ventricular systolic ejection fraction is 60-65%. 2. The left atrium appeared to be mildly to moderately enlarged. The right atrium and the right ventricle also appeared to be enlarged. The right ventricular free wall seems to be hypokinetic in limited views. 3. The atrial septum did not reveal any defect. 4. Normal aortic root. 5. No pericardial effusion seen. 6. Mildly calcified aortic valve with normal leaflet excursion. Mildly calcified mitral annulus with normal anterior mitral valve leaflet motion. The tricuspid valve appeared to be normal in limited views. The pulmonic valve and proximal pulmonary artery branches were not well visualized. 7. The inferior vena cava was mildly enlarged, central venous pressure is probably elevated. DOPPLER: It detects trace aortic regurgitation and trace mitral regurgitation. Assessment of the left ventricular diastolic function was limited in view of the underlying arrhythmias. IMPRESSION: 1. Normal global left ventricular systolic function with probably mild concentric left ventricular hypertrophy. Assessment of the left ventricular end diastolic function was limited in view of the underlying arrhythmias. 2. Mildly to moderately enlarged left atrium with mitral annulus calcification and trace mitral regurgitation. 3. Aortic valve sclerosis with trace aortic radiation. No aortic stenosis. 4. The right heart chambers appeared to be dilated in limited views. 5. The study was technically limited due to poor acoustic window. 6. Prior study was on 07/23/2018, and at that time, left ventricular systolic function also was normal and the study was also limited due to poor acoustic window. Tricuspid regurgitation then was noted. DD: SHADI MONTEZ MD 09/16/19 1601 DT: STONEY 09/17/19 0741 DS: PROGNOSIS: Favorable ACTIVITY: [As tolerated]. DIET: Cardiac DISPOSITION: Home, Self-Care. ITEMS TO FOLLOWUP ON ON OUTPATIENT: Follow-up with it consulting director and PCP DISCHARGE CONDITION: [Stable]. TIME SPENT ON DISCHARGE: Greater than 20 minutes. Discharge Medications Scheduled Amlodipine Besylate (Norvasc) 10 Mg Tablet, 1 TAB PO DAILY Atenolol (Atenolol) 50 Mg Tablet, 50 MG PO DAILY Dabigatran Etexilate Mesylate (Pradaxa) 75 Mg Capsule, 150 MG PO BID, (Reported) Dulaglutide (Trulicity) 1.5 Mg/0.5 Ml Pen.injctr, 1.5 MG SC Q7D, (Reported) Empagliflozin (Jardiance) 10 Mg Tablet, 10 MG PO DAILY, (Reported) Finasteride (Finasteride) 5 Mg Tablet, 5 MG PO QHS, (Reported) Insulin Glargine,Hum.rec.anlog (Lantus Solostar) 100 Unit/1 Ml Insuln.pen, 40 UNITS SC QHS, (Reported) Insulin Lispro (Humalog Kwikpen U-100) 100 Unit/1 Ml Insuln.pen, 30 UNITS SC QHS, (Reported) Losartan Potassium (Losartan Potassium) 100 Mg Tablet, 100 MG PO DAILY, (Reported) Metformin HCl (Metformin HCl) 500 Mg Tablet, 500 MG PO BID, (Reported) Omeprazole (Omeprazole) 40 Mg Capsule.dr, 1 CAP PO DAILY Potassium Chloride (Klor-Con M10) 10 Meq Tab.er.prt, 10 MEQ PO DAILY, (Reported) Pravastatin Sodium (Pravastatin Sodium) 20 Mg Tablet, 20 MG PO DAILY, (Reported) Pregabalin (Lyrica) 100 Mg Capsule, 100 MG PO BID, (Reported) Probenecid (Probenecid) 500 Mg Tablet, 500 MG PO BID, (Reported) Sertraline Hcl (Zoloft) 100 Mg Tablet, 100 MG PO DAILY, (Reported) Tamsulosin HCl (Flomax) 0.4 Mg Capsule, 0.4 MG PO QHS, (Reported) Tiotropium [place] (Spiriva) 18 Mcg Cap.w.dev, 1 INHALATION INH DAILY, (Reported ) [Prevagen] , 1 CAP PO DAILY, (Reported) OTC SUPPLEMENT FOR MEMORY. PT STATES TAKING. Scheduled PRN Acetaminophen/Diphenhydramine (Acetaminophen Pm Caplet) 1 Each Tablet, 2 TAB PO for SLEEP, (Reported) Allergies Coded Allergies: No Known Allergies (Verified , 07/27/18) DEANGELO RIDLEY DO Sep 21, 2019 19:11
== END 2019-09-13 16:45 | disposition home or self-care (01) | DRG 305 ==
LOC: M ED 15:15 → EDBD 15:15 → M ED INP 19:48 → ENRESERV 20:33 → M PCU 21:18
PROVIDERS: ADMIT Internal Medicine; ATTEND Internal Medicine
DX: I16.0 Hypertensive urgency (principal); Z68.42 Body mass index [BMI] 45.0-49.9, adult; R51 Headache; E11.40 Type 2 diabetes mellitus with diabetic neuropathy, unspecified; E78.5 Hyperlipidemia, unspecified; I48.91 Unspecified atrial fibrillation; E66.01 Morbid (severe) obesity due to excess calories; K21.9 Gastro-esophageal reflux disease without esophagitis; N40.0 Benign prostatic hyperplasia without lower urinary tract symptoms; F32.9 Major depressive disorder, single episode, unspecified; F41.9 Anxiety disorder, unspecified; J44.9 Chronic obstructive pulmonary disease, unspecified; Z86.711 Personal history of pulmonary embolism; Z86.73 Personal history of transient ischemic attack (TIA), and cerebral infarction without residual deficits; Z79.899 Other long term (current) drug therapy; Z79.4 Long term (current) use of insulin; Z85.038 Personal history of other malignant neoplasm of large intestine; Z95.2 Presence of prosthetic heart valve; Z87.891 Personal history of nicotine dependence

== ENCOUNTER → 2019-09-26 | Outpatient (CLI) | payer OTHER, MEDICARE ==
[~2019-09-26] MED LIST changes: +ACET25TA12 PO; +AMLO10TA PO; +ATEN50TA2 PO; +JARD1TAB PO; -PANT40TA29 PO; +PANT40TA3 PO; +PREVAGEN PO; +TRUL0.5I SC
[2019-09-26 10:42] LABS: BASO # 0.1 10^3/uL (0.0-0.2); BASO % 0.8 % (0.0-1.0); EOS # 0.5 10^3/uL (0.0-0.5); EOS % 4.7 % (0.0-3.0); HEMATOCRIT 41.6 % (42.0-52.0); HEMOGLOBIN 12.8 g/dl (13.5-17.5); LYMPH # 2.1 10^3/uL (1.5-5.0); LYMPH % 19.4 % (24.0-44.0); MEAN CORPUSCULAR HEMOGLOBIN 29.9 pg (27.0-33.0); MEAN CORPUSCULAR HGB CONC 30.8 g/dl (32.0-36.5); MEAN CORPUSCULAR VOLUME 97.2 fl (80.0-96.0); MONO # 0.9 10^3/uL (0.0-0.8); MONO % 8.1 % (0.0-5.0); NEUTROPHILS # 7.3 10^3/uL (1.5-8.5); NEUTROPHILS % 66.6 % (36.0-66.0); PLATELET COUNT, AUTOMATED 258 10^3/uL (150-450); RED BLOOD COUNT 4.28 10^6/uL (4.30-6.10)
[2019-09-26 11:09] LABS: HEMOGLOBIN A1c 7.5 %
[2019-09-26 11:18] LABS: ALBUMIN 3.2 GM/DL (3.2-5.2); ALT/SGPT 26 U/L (12-78); BILIRUBIN,TOTAL 0.4 MG/DL (0.2-1.0); BLOOD UREA NITROGEN 25 MG/DL (7-18); CALCIUM LEVEL 9.3 MG/DL (8.8-10.2); CARBON DIOXIDE LEVEL 28 MEQ/L (21-32); CHLORIDE LEVEL 105 MEQ/L (98-107); CHOLESTEROL LEVEL 203 MG/DL (<200); CHOLESTEROL RISK RATIO 3.123 (<5); CREATININE FOR GFR 1.25 MG/DL (0.70-1.30); GLOMERULAR FILTRATION RATE > 60.0 (>42); GLUCOSE, FASTING 194 MG/DL (70-100); HDL CHOLESTEROL 65 MG/DL (>40); LDL CHOLESTEROL 99 MG/DL (<100); NON-HDL-C 138 MG/DL; POTASSIUM SERUM 4.9 MEQ/L (3.5-5.1); SODIUM LEVEL 139 MEQ/L (136-145); TOTAL PROTEIN 7.4 GM/DL (6.4-8.2); TRIGLYCERIDES LEVEL 193 MG/DL (<150)
== END ==
LOC: M WUC 08:49
PROVIDERS: ATTEND Physician Assistant
DX: I12.9 Hypertensive chronic kidney disease with stage 1 through stage 4 chronic kidney disease, or unspecified chronic kidney disease (principal); N18.9 Chronic kidney disease, unspecified

== ENCOUNTER → 2019-11-09 | Outpatient (CLI) | payer OTHER, MEDICARE ==
[~2019-11-09] MED LIST changes: +PANT40TA29 PO; -PANT40TA3 PO
--- NOTE | 2019-12-21 08:48 | REP ---
CAROTID ULTRASOUND: TECHNIQUE: Real time ultrasound evaluation and duplex Doppler interrogation of the extracranial carotid vasculature is performed. FINDINGS: There is moderate scattered, partially calcified plaque seen in both carotid bulbs extending into the internal and external carotid arteries. There is no evidence of elevation of peak systolic velocity and no duplex Doppler sonographic evidence of hemodynamically significant stenosis bilaterally. Luminal narrowing is in the range of less than 50%. There is normal direction of flow in both vertebral arteries. PEAK FLOW VELOCITY ANALYSIS RIGHT LEFT Peak systolic velocity ICA 79.2 62.8 End diastolic velocity ICA 18.1 19.9 Peak systolic velocity CCA 100.7 146.5 Peak systolic velocity ECA 275.6 117.6 ICA/CCA ratio 0.79 0.43 IMPRESSION: Moderate partially calcified plaquing in the carotid bulbs and internal carotid arteries bilaterally with luminal narrowing less than 50%. No evidence of hemodynamically significant stenosis of the internal carotid arteries bilaterally. MTDD
== END ==
LOC: M RAD 14:30
PROVIDERS: ATTEND Physician Assistant
DX: I65.23 Occlusion and stenosis of bilateral carotid arteries (principal)

== ENCOUNTER → 2019-12-19 | Outpatient (CLI) | payer OTHER, MEDICARE ==
[2019-12-19 12:53] LABS: BASO # 0.1 10^3/uL (0.0-0.2); EOS # 0.5 10^3/uL (0.0-0.5); EOS % 4.2 % (0.0-3.0); HEMATOCRIT 43.4 % (42.0-52.0); HEMOGLOBIN 13.5 g/dl (13.5-17.5); LYMPH # 2.7 10^3/uL (1.5-5.0); LYMPH % 22.7 % (24.0-44.0); MEAN CORPUSCULAR HEMOGLOBIN 30.1 pg (27.0-33.0); MEAN CORPUSCULAR HGB CONC 31.1 g/dl (32.0-36.5); MEAN CORPUSCULAR VOLUME 96.7 fl (80.0-96.0); MONO # 0.9 10^3/uL (0.0-0.8); MONO % 7.9 % (0.0-5.0); NEUTROPHILS # 7.5 10^3/uL (1.5-8.5); NEUTROPHILS % 63.9 % (36.0-66.0); PLATELET COUNT, AUTOMATED 274 10^3/uL (150-450); RED BLOOD COUNT 4.49 10^6/uL (4.30-6.10); WHITE BLOOD COUNT 11.7 10^3/uL (4.0-10.0)
[2019-12-19 13:31] LABS: HEMOGLOBIN A1c 7.7 %
[2019-12-19 13:32] LABS: ALBUMIN 3.2 GM/DL (3.2-5.2); BILIRUBIN,TOTAL 0.5 MG/DL (0.2-1.0); CALCIUM LEVEL 9.5 MG/DL (8.8-10.2); CHOLESTEROL RISK RATIO 2.779 (<5); CREATININE FOR GFR 1.48 MG/DL (0.70-1.30); FREE T4 0.82 NG/DL (0.76-1.46); GLOMERULAR FILTRATION RATE 49.7 (>42); POTASSIUM SERUM 5.2 MEQ/L (3.5-5.1); THYROID STIMULATING HORMONE 1.65 uIU/ML (0.358-3.740); TOTAL PROTEIN 7.4 GM/DL (6.4-8.2)
== END ==
LOC: M WUC 09:54
PROVIDERS: ATTEND Physician Assistant
DX: E11.22 Type 2 diabetes mellitus with diabetic chronic kidney disease (principal); G47.33 Obstructive sleep apnea (adult) (pediatric); E66.01 Morbid (severe) obesity due to excess calories; R51 Headache; N18.9 Chronic kidney disease, unspecified

== ENCOUNTER → 2019-12-25 | Outpatient (CLI) | payer OTHER ==
--- NOTE | 2020-01-04 06:28 | REP ---
BILATERAL LOWER EXTREMITY DUPLEX ARTERIAL ULTRASOUND HISTORY: Atherosclerosis of the [place] arteries. Intermittent claudication bilateral legs. FINDINGS: Ankle brachial indices could not be obtained due to noncompressible vessels. Exam quality was inhibited to some degree by patient body habitus. Biphasic arterial Doppler waveforms are noted at and distal to the superficial femoral artery on the left. The posterior tibial artery on the left appears to be occluded proximally. The proximal and distal segment of the posterior tibial on the right are felt to be occluded as well. 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
== END ==
LOC: M RAD 09:54
PROVIDERS: ATTEND Physician Assistant
DX: I70.213 Atherosclerosis of native arteries of extremities with intermittent claudication, bilateral legs (principal)

== ENCOUNTER → 2020-01-28 | Outpatient (CLI) | payer OTHER | LOC: M LABSMTC 11:52 | DX: Z20.828 Contact with and (suspected) exposure to other viral communicable diseases (principal) ==

== ENCOUNTER → 2020-03-08 | Outpatient (CLI) | payer OTHER ==
[~2020-03-08] MED LIST changes: +ISOVUE-370 76% 100ML VIAL As Ordered ONE
[2020-03-08 12:58] LABS: CREATININE FOR GFR 1.86 MG/DL (0.70-1.30); GLOMERULAR FILTRATION RATE 38.2 (>42)
== END ==
LOC: M RAD 10:32
PROVIDERS: ATTEND Psychiatry & Neurology Neurology
DX: I63.9 Cerebral infarction, unspecified (principal)

== ENCOUNTER → 2020-03-19 | Outpatient (CLI) | payer OTHER ==
[~2020-03-19] MED LIST changes: -ISOVUE-370 76% 100ML VIAL As Ordered ONE
[2020-03-19 10:23] LABS: ALBUMIN 3.1 GM/DL (3.2-5.2); BILIRUBIN,TOTAL 0.4 MG/DL (0.2-1.0); CALCIUM LEVEL 9.1 MG/DL (8.8-10.2); CREATININE FOR GFR 1.54 MG/DL (0.70-1.30); GLOMERULAR FILTRATION RATE 47.5 (>42); POTASSIUM SERUM 4.7 MEQ/L (3.5-5.1); TOTAL PROTEIN 7.2 GM/DL (6.4-8.2)
[2020-03-19 13:12] LABS: HEMOGLOBIN A1c 6.8 %
== END ==
LOC: M WUC 08:29
PROVIDERS: ATTEND Physician Assistant
DX: E11.22 Type 2 diabetes mellitus with diabetic chronic kidney disease (principal)

== ENCOUNTER → 2020-07-18 | Outpatient (CLI) | payer OTHER, MEDICARE ==
[~2020-07-18] MED LIST changes: +ASPI-569 PO; -ASPI81TAEC PO
[2020-07-18 11:45] LABS: BASO # 0.1 10^3/uL (0.0-0.2); BASO % 0.9 % (0.0-1.0); EOS # 0.6 10^3/uL (0.0-0.5); EOS % 5.5 % (0.0-3.0); HEMATOCRIT 43.1 % (42.0-52.0); HEMOGLOBIN 13.1 g/dl (13.5-17.5); LYMPH # 2.9 10^3/uL (1.5-5.0); LYMPH % 24.8 % (24.0-44.0); MEAN CORPUSCULAR HGB CONC 30.4 g/dl (32.0-36.5); MEAN CORPUSCULAR VOLUME 95.4 fl (80.0-96.0); MONO # 0.8 10^3/uL (0.0-0.8); MONO % 6.6 % (2.0-8.0); NEUTROPHILS # 7.2 10^3/uL (1.5-8.5); NEUTROPHILS % 61.7 % (36.0-66.0); PLATELET COUNT, AUTOMATED 307 10^3/uL (150-450); RED BLOOD COUNT 4.52 10^6/uL (4.30-6.10); WHITE BLOOD COUNT 11.7 10^3/uL (4.0-10.0)
[2020-07-18 12:25] LABS: HEMOGLOBIN A1c 6.4 %
[2020-07-18 12:50] LABS: ALBUMIN 3.4 GM/DL (3.2-5.2); BILIRUBIN,TOTAL 0.4 MG/DL (0.2-1.0); CALCIUM LEVEL 9.7 MG/DL (8.8-10.2); CHOLESTEROL RISK RATIO 3.301 (<5); CREATININE FOR GFR 1.55 MG/DL (0.70-1.30); FREE T4 0.68 NG/DL (0.76-1.46); GLOMERULAR FILTRATION RATE 47.2 (>42); POTASSIUM SERUM 4.8 MEQ/L (3.5-5.1); THYROID STIMULATING HORMONE 3.27 uIU/ML (0.358-3.740); TOTAL PROTEIN 7.5 GM/DL (6.4-8.2)
[2020-07-19 23:10] LABS: PSA TOTAL 0.2 ng/mL (0.0-4.0)
== END ==
LOC: M WUC 09:04
PROVIDERS: ATTEND Physician Assistant
DX: E11.22 Type 2 diabetes mellitus with diabetic chronic kidney disease (principal); G47.33 Obstructive sleep apnea (adult) (pediatric); I63.9 Cerebral infarction, unspecified; E66.01 Morbid (severe) obesity due to excess calories; Z12.5 Encounter for screening for malignant neoplasm of prostate

== ENCOUNTER → 2020-08-29 | Outpatient (CLI) | payer OTHER ==
--- NOTE | 2020-08-29 14:24 | REP ---
INDICATION: STENOSIS, CLAUDICATION COMPARISON: 11/09/2019. TECHNIQUE: Real-time ultrasound evaluation and duplex Doppler interrogation of the extracranial carotid vasculature is performed. FINDINGS: There is mild to moderate calcific plaquing and narrowing in both carotid bulbs extending into the internal and external carotid arteries. Luminal narrowing is less than 50%. There is no evidence of hemodynamically significant stenosis of either internal carotid artery. Normal flow velocities are seen. The vertebral arteries demonstrate normal direction of flow. RIGHT LEFT Peak systolic velocity ICA 92.7 cm/s 89.7 cm/s End diastolic velocity ICA 16.5 cm/s 14.8 cm/s Peak systolic velocity CCA 67.1 cm/s 78.4cm/s Peak systolic velocity ECA 193 cm/s 121 cm/s ICA/CCA ratio 1.38 1.14 IMPRESSION: Bilateral luminal narrowing of the internal carotid arteries less than 50%. No evidence of hemodynamically significant stenosis. <Electronically signed by Demar Watkins > 08/29/20 1570
--- NOTE | 2020-08-29 14:43 | REP ---
INDICATION: STENOSIS, CLAUDICATION COMPARISON: 12/25/2019 TECHNIQUE: Real time alvarado scale and color Doppler evaluation of the bilateral lower extremity arterial vasculature using linear high frequency transducer. FINDINGS: Right lower extremity demonstrates extensive atherosclerotic calcifications and atheromatous plaquing including focal occlusion through the mid posterior tibial artery with reversed flow in the distal aspect along with 2.5:1 stenosis through the proximal anterior tibial artery. Triphasic arterial wave patterns are noted from the common femoral artery through the popliteal followed by biphasic and monophasic wave patterns distally. TAMELA could not be obtained due to calcified vessels. Left lower extremity demonstrates extensive atherosclerotic calcifications and atheromatous plaquing along with occlusive changes of the distal posterior tibial artery and trickle flow with monophasic wave pattern through the distal anterior tibial artery. Biphasic and triphasic wave patterns are noted from the common femoral artery through the tibioperoneal trunk. No obvious focal area of stenosis noted. TAMELA could not be obtained due to calcified vessels. Peak systolic velocities (cm/sec) Common femoral artery: Right 100; Left 119 Profunda femoris: Right 163; Left 77 SFA (proximal): Right 96; Left 89 SFA (mid): Right 99; Left 93 SFA (distal): Right 75; Left 52 Popliteal artery: Right 63; Left 55 OLGA (prox.): Right 68-171; Left 54 Tibioperoneal trunk: Right 69; Left 50 [employer]ACH [employer]ESSIONAL ATHLETES (prox.): Right 24; Left 18 [employer]ESSIONAL ATHLETES (distal): Right reversed; Left occluded OLGA (distal): Right 73; Left 15 IMPRESSION: Extensive atherosclerotic changes with focal findings as described above. <Electronically signed by Shay Cha > 08/29/20 7622
== END ==
LOC: M RAD 12:43
PROVIDERS: ATTEND Surgery Vascular Surgery
DX: I65.23 Occlusion and stenosis of bilateral carotid arteries (principal); I70.213 Atherosclerosis of native arteries of extremities with intermittent claudication, bilateral legs

== ENCOUNTER → 2020-11-14 | Outpatient (CLI) | payer OTHER ==
[~2020-11-14] MED LIST changes: +OMEP40CA4 PO; -OMEP40CA97 PO
[2020-11-14 10:45] LABS: CREATININE FOR GFR 1.48 MG/DL (0.70-1.30); GLOMERULAR FILTRATION RATE 49.6 (>42); POTASSIUM SERUM 4.3 MEQ/L (3.5-5.1)
[2020-11-14 10:57] LABS: HEMOGLOBIN A1c 6.4 %
== END ==
LOC: M WUC 08:18
PROVIDERS: ATTEND Physician Assistant
DX: E11.22 Type 2 diabetes mellitus with diabetic chronic kidney disease (principal); Z11.3 Encounter for screening for infections with a predominantly sexual mode of transmission
CPT/HCPCS: 36415; 80048; 83036; G0472

== ENCOUNTER → 2021-03-18 | Outpatient (CLI) | payer OTHER ==
[~2021-03-18] MED LIST changes: -KLOR10TA76 PO; +POTA-136 PO
[2021-03-18 10:27] LABS: BASO # 0.1 10^3/uL (0.0-0.2); BASO % 0.8 % (0.0-1.0); EOS # 0.5 10^3/uL (0.0-0.5); EOS % 4.1 % (0.0-3.0); HEMATOCRIT 40.6 % (42.0-52.0); HEMOGLOBIN 12.4 g/dl (13.5-17.5); LYMPH # 2.5 10^3/uL (1.5-5.0); MEAN CORPUSCULAR HGB CONC 30.5 g/dl (32.0-36.5); MEAN CORPUSCULAR VOLUME 95.1 fl (80.0-96.0); MONO # 0.8 10^3/uL (0.0-0.8); MONO % 6.8 % (2.0-8.0); NEUTROPHILS # 7.2 10^3/uL (1.5-8.5); NEUTROPHILS % 64.8 % (36.0-66.0); PLATELET COUNT, AUTOMATED 286 10^3/uL (150-450); RED BLOOD COUNT 4.27 10^6/uL (4.30-6.10)
[2021-03-18 10:53] LABS: HEMOGLOBIN A1c 6.7 %
[2021-03-18 11:05] LABS: MALB URINE SIEMENS 20.4 MG/L; MAU/CREAT RATIO 17.7 MCG/MG (0.0-30.0)
[2021-03-18 11:12] LABS: ALBUMIN 3.1 GM/DL (3.2-5.2); ALT/SGPT 18 U/L (12-78); BILIRUBIN,TOTAL 0.4 MG/DL (0.2-1.0); BLOOD UREA NITROGEN 31 MG/DL (7-18); CALCIUM LEVEL 9.6 MG/DL (8.8-10.2); CARBON DIOXIDE LEVEL 27 MEQ/L (21-32); CHLORIDE LEVEL 105 MEQ/L (98-107); CHOLESTEROL LEVEL 178 MG/DL (<200); CHOLESTEROL RISK RATIO 3.236 (<5); CREATININE FOR GFR 1.48 MG/DL (0.70-1.30); FREE T4 0.81 NG/DL (0.76-1.46); GLOMERULAR FILTRATION RATE 49.6 (>42); GLUCOSE, FASTING 165 MG/DL (70-100); HDL CHOLESTEROL 55 MG/DL (>40); LDL CHOLESTEROL 89 MG/DL (<100); NON-HDL-C 123 MG/DL; POTASSIUM SERUM 5.1 MEQ/L (3.5-5.1); SODIUM LEVEL 139 MEQ/L (136-145); TRIGLYCERIDES LEVEL 170 MG/DL (<150)
[2021-03-19 09:23] LABS: FOLATE > 24.0 NG/ML; VITAMIN B12 LEVEL 745 PG/ML
== END ==
LOC: M WUC 08:19
PROVIDERS: ATTEND Physician Assistant
DX: E11.22 Type 2 diabetes mellitus with diabetic chronic kidney disease (principal); I63.9 Cerebral infarction, unspecified; E66.01 Morbid (severe) obesity due to excess calories; D64.9 Anemia, unspecified

== ENCOUNTER → 2021-05-28 | Outpatient (CLI) | payer OTHER ==
[~2021-05-28] MED LIST changes: +LOSA100T45 PO; -LOSA100T50 PO
== END ==
LOC: M RAD 13:53
PROVIDERS: ATTEND Psychiatry & Neurology Neurology
DX: I65.23 Occlusion and stenosis of bilateral carotid arteries (principal); I63.9 Cerebral infarction, unspecified

== ENCOUNTER → 2021-05-28 | Outpatient (CLI) | payer OTHER | LOC: M RAD 13:57 | PROVIDERS: ATTEND Internal Medicine Nephrology | DX: N18.31 Chronic kidney disease, stage 3a (principal); D63.1 Anemia in chronic kidney disease ==

== ENCOUNTER → 2021-07-04 | Outpatient (REF) | payer OTHER, MEDICARE | LOC: M LAB REF 18:41 | PROVIDERS: ATTEND Dermatology | DX: C44.519 Basal cell carcinoma of skin of other part of trunk (principal) ==

== ENCOUNTER 2021-08-07 16:52 | Emergency (ER) | payer OTHER, MEDICARE ==
[~2021-08-07] VITALS: Ht 193 cm; Wt 170.3 kg
[2021-08-07] MEDS ORDERED: METO1TAB33 PO (17:48)
[2021-08-07] MEDS ORDERED: MAGN400T2 PO (17:48)
[2021-08-07] MEDS ORDERED: GABA-282 PO (17:48)
[2021-08-07] MEDS ORDERED: PRAD150C6 PO (17:48)
[2021-08-07] MEDS ORDERED: PANT40TA29 PO (17:48)
[2021-08-07] MEDS ORDERED: HUMA100I5 SC (17:48)
[2021-08-07] MEDS ORDERED: FOLI800T3 PO (17:48)
[2021-08-07 18:55] LABS: BASO # 0.1 10^3/uL (0.0-0.2); BASO % 0.9 % (0.0-1.0); EOS # 0.4 10^3/uL (0.0-0.5); EOS % 3.7 % (0.0-3.0); HEMATOCRIT 39.5 % (42.0-52.0); HEMOGLOBIN 12.6 g/dl (13.5-17.5); LYMPH # 2.1 10^3/uL (1.5-5.0); LYMPH % 21.5 % (24.0-44.0); MEAN CORPUSCULAR HEMOGLOBIN 29.4 pg (27.0-33.0); MEAN CORPUSCULAR HGB CONC 31.9 g/dl (32.0-36.5); MEAN CORPUSCULAR VOLUME 92.3 fl (80.0-96.0); MONO # 0.7 10^3/uL (0.0-0.8); MONO % 6.6 % (2.0-8.0); NEUTROPHILS # 6.6 10^3/uL (1.5-8.5); NEUTROPHILS % 66.8 % (36.0-66.0); PLATELET COUNT, AUTOMATED 294 10^3/uL (150-450); RED BLOOD COUNT 4.28 10^6/uL (4.30-6.10); WHITE BLOOD COUNT 9.8 10^3/uL (4.0-10.0)
[2021-08-07 19:17] LABS: BILIRUBIN,DIRECT 0.2 MG/DL (0.0-0.2); BILIRUBIN,TOTAL 0.4 MG/DL (0.2-1.0); CALCIUM LEVEL 9.9 MG/DL (8.8-10.2); CREATININE FOR GFR 1.48 MG/DL (0.70-1.30); GLOMERULAR FILTRATION RATE 49.6 (>42); POTASSIUM SERUM 4.8 MEQ/L (3.5-5.1); THYROID STIMULATING HORMONE 1.71 uIU/ML (0.358-3.740); THYROXINE (T4) 4.9 UG/DL (4.5-12.0); TOTAL PROTEIN 7.4 GM/DL (6.4-8.2)
[2021-08-07] MEDS ORDERED: ALBUTEROL SULFATE 2.5 MG/0.5 ML INH NEB SOLN NEB ONE (19:55)
[2021-08-07] MEDS ORDERED: IPRATROPIUM 0.5MG/ALBUTEROL 2.5MG INH SOL UD 3ML (DUONEB) NEB ONE (19:55)
[2021-08-07 20:41] VITALS: O2SAT 94
[2021-08-07 21:46] VITALS: BP 153/74
[2021-08-07] MEDS ORDERED: IPRA0.00 NEB (21:49)
[2021-08-07] MEDS ORDERED: EASY-106 XX (21:49)
[2021-08-08] MEDS ORDERED: EASY-106 XX (16:58)
[2021-08-08] MEDS ORDERED: IPRA0.00 NEB (16:58)
== END 2021-08-07 22:05 | disposition home or self-care (01) ==
LOC: M ED 16:52
DX: J12.3 Human metapneumovirus pneumonia (principal); E11.9 Type 2 diabetes mellitus without complications; I10 Essential (primary) hypertension; K21.9 Gastro-esophageal reflux disease without esophagitis; E78.5 Hyperlipidemia, unspecified; Z79.4 Long term (current) use of insulin; Z86.73 Personal history of transient ischemic attack (TIA), and cerebral infarction without residual deficits

== ENCOUNTER → 2021-09-23 | Outpatient (CLI) | payer OTHER, MEDICARE ==
[~2021-09-23] MED LIST changes: +EASY-106 XX; +FOLI800T3 PO; +GABA-282 PO; +IPRA0.00 NEB; +MAGN400T2 PO; +METO1TAB33 PO; +PRAD150C6 PO
[2021-09-23 13:06] LABS: BASO # 0.1 10^3/uL (0.0-0.2); EOS # 0.5 10^3/uL (0.0-0.5); EOS % 4.3 % (0.0-3.0); HEMOGLOBIN 12.5 g/dl (13.5-17.5); LYMPH # 2.7 10^3/uL (1.5-5.0); LYMPH % 24.5 % (24.0-44.0); MEAN CORPUSCULAR HEMOGLOBIN 28.3 pg (27.0-33.0); MEAN CORPUSCULAR HGB CONC 29.8 g/dl (32.0-36.5); MEAN CORPUSCULAR VOLUME 95.2 fl (80.0-96.0); MONO # 0.8 10^3/uL (0.0-0.8); MONO % 7.3 % (2.0-8.0); NEUTROPHILS # 6.8 10^3/uL (1.5-8.5); NEUTROPHILS % 62.3 % (36.0-66.0); PLATELET COUNT, AUTOMATED 287 10^3/uL (150-450); RED BLOOD COUNT 4.41 10^6/uL (4.30-6.10); WHITE BLOOD COUNT 10.9 10^3/uL (4.0-10.0)
[2021-09-23 13:13] LABS: HEMOGLOBIN A1c 6.5 %
[2021-09-23 13:31] LABS: ALBUMIN 3.2 GM/DL (3.2-5.2); BILIRUBIN,TOTAL 0.3 MG/DL (0.2-1.0); CALCIUM LEVEL 9.5 MG/DL (8.8-10.2); CREATININE FOR GFR 1.63 MG/DL (0.70-1.30); FREE T4 0.71 NG/DL (0.76-1.46); GLOMERULAR FILTRATION RATE 44.4 (>42); POTASSIUM SERUM 4.8 MEQ/L (3.5-5.1); THYROID STIMULATING HORMONE 1.97 uIU/ML (0.358-3.740); TOTAL PROTEIN 7.3 GM/DL (6.4-8.2)
== END ==
LOC: M WUC 10:04
PROVIDERS: ATTEND Nurse Practitioner Adult Health
DX: E11.22 Type 2 diabetes mellitus with diabetic chronic kidney disease (principal); I12.9 Hypertensive chronic kidney disease with stage 1 through stage 4 chronic kidney disease, or unspecified chronic kidney disease; G47.33 Obstructive sleep apnea (adult) (pediatric); N18.9 Chronic kidney disease, unspecified

== ENCOUNTER → 2021-11-26 | Outpatient (REF) | payer OTHER, MEDICARE | LOC: M LAB REF 09:58 | PROVIDERS: ATTEND Podiatrist | DX: M79.671 Pain in right foot (principal) ==

== ENCOUNTER → 2022-01-08 | Outpatient (CLI) | payer OTHER, MEDICARE ==
[2022-01-08 11:40] LABS: BASO # 0.1 10^3/uL (0.0-0.2); BASO % 0.8 % (0.0-1.0); EOS # 0.6 10^3/uL (0.0-0.5); EOS % 5.3 % (0.0-3.0); HEMATOCRIT 41.7 % (42.0-52.0); HEMOGLOBIN 12.5 g/dl (13.5-17.5); LYMPH # 2.6 10^3/uL (1.5-5.0); LYMPH % 23.5 % (24.0-44.0); MEAN CORPUSCULAR HEMOGLOBIN 28.7 pg (27.0-33.0); MEAN CORPUSCULAR VOLUME 95.6 fl (80.0-96.0); MONO # 0.8 10^3/uL (0.0-0.8); MONO % 7.2 % (2.0-8.0); NEUTROPHILS # 6.8 10^3/uL (1.5-8.5); NEUTROPHILS % 62.8 % (36.0-66.0); PLATELET COUNT, AUTOMATED 294 10^3/uL (150-450); RED BLOOD COUNT 4.36 10^6/uL (4.30-6.10); WHITE BLOOD COUNT 10.9 10^3/uL (4.0-10.0)
[2022-01-08 12:03] LABS: HEMOGLOBIN A1c 6.9 %
[2022-01-08 12:29] LABS: CREATININE FOR GFR 1.83 MG/DL (0.70-1.30); GLOMERULAR FILTRATION RATE 38.7 (>42); POTASSIUM SERUM 4.9 MEQ/L (3.5-5.1)
[2022-01-08 12:30] LABS: ALBUMIN 3.1 GM/DL (3.2-5.2); BILIRUBIN,TOTAL 0.3 MG/DL (0.2-1.0); CALCIUM LEVEL 9.6 MG/DL (8.8-10.2); TOTAL PROTEIN 7.2 GM/DL (6.4-8.2)
[2022-01-09 13:08] LABS: PSA TOTAL <0.1 ng/mL (0.0-4.0)
== END ==
LOC: M WUC 08:52
PROVIDERS: ATTEND Nurse Practitioner Adult Health
DX: E11.22 Type 2 diabetes mellitus with diabetic chronic kidney disease (principal); N40.0 Benign prostatic hyperplasia without lower urinary tract symptoms

== ENCOUNTER → 2022-02-24 | Outpatient (CLI) | payer OTHER, MEDICARE | LOC: M RAD 13:58 | PROVIDERS: ATTEND Nurse Practitioner Adult Health | DX: J44.9 Chronic obstructive pulmonary disease, unspecified (principal) ==

== ENCOUNTER → 2022-04-21 | Outpatient (CLI) | payer OTHER, MEDICARE ==
[2022-04-21 10:07] LABS: BASO # 0.1 10^3/uL (0.0-0.2); EOS # 0.6 10^3/uL (0.0-0.5); EOS % 5.4 % (0.0-3.0); HEMATOCRIT 43.4 % (42.0-52.0); HEMOGLOBIN 12.9 g/dl (13.5-17.5); LYMPH # 3.3 10^3/uL (1.5-5.0); LYMPH % 28.7 % (24.0-44.0); MEAN CORPUSCULAR HEMOGLOBIN 28.8 pg (27.0-33.0); MEAN CORPUSCULAR HGB CONC 29.7 g/dl (32.0-36.5); MEAN CORPUSCULAR VOLUME 96.9 fl (80.0-96.0); MONO # 0.8 10^3/uL (0.0-0.8); MONO % 7.1 % (2.0-8.0); NEUTROPHILS # 6.7 10^3/uL (1.5-8.5); NEUTROPHILS % 57.5 % (36.0-66.0); PLATELET COUNT, AUTOMATED 279 10^3/uL (150-450); RED BLOOD COUNT 4.48 10^6/uL (4.30-6.10); WHITE BLOOD COUNT 11.6 10^3/uL (4.0-10.0)
[2022-04-21 10:21] LABS: HEMOGLOBIN A1c 6.1 % (4.0-6.0)
[2022-04-21 10:42] LABS: TOTAL 25(OH) VITAMIN D 50.7 NG/ML (20.0-100.0)
[2022-04-21 10:43] LABS: THYROID STIMULATING HORMONE 1.644 uIU/ML (0.55-4.78)
[2022-04-21 10:44] LABS: ALBUMIN 3.3 G/DL (3.2-5.2); BILIRUBIN,TOTAL 0.3 MG/DL (0.3-1.2); CALCIUM LEVEL 9.6 MG/DL (8.3-10.6); CHOLESTEROL RISK RATIO 3.15 (<5); CREATININE FOR GFR 1.64 MG/DL (0.70-1.30); FREE T4 0.71 NG/DL (0.89-1.76); GLOMERULAR FILTRATION RATE 43.9 (>42); HDL CHOLESTEROL 54.5 MG/DL (>40); LDL CHOLESTEROL 86.9 MG/DL (<100); POTASSIUM SERUM 5.2 MMOL/L (3.5-5.1); TOTAL PROTEIN 7.2 G/DL (5.7-8.2)
== END ==
LOC: M WUC 08:42
PROVIDERS: ATTEND Nurse Practitioner Adult Health
DX: E11.22 Type 2 diabetes mellitus with diabetic chronic kidney disease (principal); E66.01 Morbid (severe) obesity due to excess calories; N18.9 Chronic kidney disease, unspecified

== ENCOUNTER → 2022-06-25 | Outpatient (CLI) | payer OTHER, MEDICARE ==
[2022-06-25 12:41] LABS: CHOLESTEROL RISK RATIO 2.96 (<5); HDL CHOLESTEROL 61.4 MG/DL (>40); LDL CHOLESTEROL 89.8 MG/DL (<100); NON-HDL-C 120.6 MG/DL
== END ==
LOC: M WUC 09:13
PROVIDERS: ATTEND Nurse Practitioner Family
DX: E78.5 Hyperlipidemia, unspecified (principal)

== ENCOUNTER 2022-07-19 00:20 | Inpatient (IN) | payer MEDICARE, OTHER ==
[~2022-07-19] VITALS: Ht 193 cm; Wt 174.6 kg
[2022-07-19] VITALS (19 sets, daily range): BP systolic 88–141; BP diastolic 45–76
[~2022-07-19 00:20] MED LIST changes: -LOSA100T45 PO; +LOSA100T46 PO
[2022-07-19] MEDS ORDERED: NS 1,000 ML IV ONE ×3 (01:15→04:00)
[2022-07-19 01:30] LABS: BASO # 0.1 10^3/uL (0.0-0.2); BASO % 0.4 % (0.0-1.0); EOS % 0.2 % (0.0-3.0); HEMOGLOBIN 12.5 g/dl (13.5-17.5); LYMPH # 2.3 10^3/uL (1.5-5.0); LYMPH % 10.8 % (24.0-44.0); MEAN CORPUSCULAR HEMOGLOBIN 29.2 pg (27.0-33.0); MEAN CORPUSCULAR HGB CONC 31.3 g/dl (32.0-36.5); MEAN CORPUSCULAR VOLUME 93.5 fl (80.0-96.0); MONO % 9.6 % (2.0-8.0); NEUTROPHILS # 16.8 10^3/uL (1.5-8.5); NEUTROPHILS % 78.1 % (36.0-66.0); PLATELET COUNT, AUTOMATED 262 10^3/uL (150-450); RED BLOOD COUNT 4.28 10^6/uL (4.30-6.10); WHITE BLOOD COUNT 21.4 10^3/uL (4.0-10.0)
[2022-07-19] MEDS ORDERED: MORPHINE 4 MG/ML 1ML VIAL IV ONE (01:40)
[2022-07-19] MEDS ORDERED: ONDANSETRON 4MG 2ML VIAL IV ONE (01:40)
[2022-07-19 01:45] LABS: MONO # 2.1 10^3/uL (0.0-0.8)
[2022-07-19 01:50] LABS: ERYTHROCYTE SEDIMENTATION RATE 94 mm/hr (0-20)
[2022-07-19 01:55] LABS: VENOUS BASE EXCESS 0.2 (-2.0-2.0); VENOUS HCO3 25.8 MEQ/L (23.0-27.0); VENOUS O2 SATURATION 83.5 % (60.0-80.0); VENOUS PARTIAL PRESSURE CO2 45.6 mmHg (38.0-50.0); VENOUS PARTIAL PRESSURE O2 48.5 mmHg (30.0-50.0); VENOUS PH 7.371 UNITS (7.330-7.430); VENOUS STANDARD HCO3 24.4 MEQ/L; VENOUS TOTAL CO2 27.2 MEQ/L (24.0-28.0)
[2022-07-19 01:55] LABS: LIPASE 22 U/L (12-53)
[2022-07-19 01:57] LABS: ALBUMIN 2.8 G/DL (3.2-5.2); ALKALINE PHOSPHATASE 68 U/L (46-116); ALT/SGPT 63 U/L (7.0-40); AST/SGOT 77 U/L (<34); BILIRUBIN,TOTAL 1.1 MG/DL (0.3-1.2); BLOOD UREA NITROGEN 47 MG/DL (9-23); CARBON DIOXIDE LEVEL 25 MMOL/L (20-31); CHLORIDE LEVEL 102 MMOL/L (98-107); CK-MB VALUE MASS < 1.0 NG/ML (<3.6); CPK CREATINE PHOSPHOKINASE 54 U/L (46-171); GLOMERULAR FILTRATION RATE 25.8 (>42); GLUCOSE, FASTING 124 MG/DL (74-106); MB/CK RELATIVE INDEX 1.85 (< OR =4); POTASSIUM SERUM 4.4 MMOL/L (3.5-5.1); SODIUM LEVEL 136 MMOL/L (136-145); TOTAL PROTEIN 6.8 G/DL (5.7-8.2)
[2022-07-19 01:59] LABS: INR 1.56; THYROID STIMULATING HORMONE 2.018 uIU/ML (0.55-4.78)
[2022-07-19 02:00] LABS: PARTIAL THROMBOPLASTIN TIME 57.3 SECONDS (24.8-34.2)
[2022-07-19 02:05] LABS: RSV AMPLIFICATION NEGATIVE (NEGATIVE)
[2022-07-19 02:24] LABS: HEMOGLOBIN A1c 6.4 % (4.0-6.0)
[2022-07-19] MEDS ORDERED: LIDOCAINE 2% 5ML JELLY UROJET TOP ONE (02:30)
[2022-07-19] MEDS ORDERED: ACETAMINOPHEN TAB 650MG DOSE (2X325MG) PO ONE (03:25)
[2022-07-19] MEDS ORDERED: PIPERACILLIN/TAZOBACTAM SOD 4.5 GM in D5W MINI-BAG PLUS 50 ML IV ONE (04:00)
[2022-07-19] MEDS ORDERED: B-COCAP8 PO (04:48)
[2022-07-19] MEDS ORDERED: LOSA50TA28 PO (04:48)
[2022-07-19] MEDS ORDERED: AMLO1TAB24 PO (04:48)
[2022-07-19] MEDS ORDERED: HOME MED LIST COMPLETE! XX SCH (04:50)
[2022-07-19] MEDS ORDERED: GLUCOSE 4GM CHEW TABLET PO PRN ×2 (05:30→13:10)
[2022-07-19] MEDS ORDERED: MOM 30ML SUSPENSION UDC PO PRN (05:30)
[2022-07-19] MEDS ORDERED: GLUCAGON INJ 1MG VIAL SC PRN ×2 (05:30→13:10)
[2022-07-19] MEDS ORDERED: DEXTROSE 50% 50ML SYRINGE IV PRN ×2 (05:30→13:10)
[2022-07-19] MEDS ORDERED: MAALOX 30 ML SUSP *UDC PO PRN (05:30)
[2022-07-19] MEDS ORDERED: UNRESOLVED CLARIFICATION ENTRY XX STA (05:47)
[2022-07-19 06:43] LABS: CK-MB VALUE MASS < 1.0 NG/ML (<3.6)
[2022-07-19 06:44] LABS: CPK CREATINE PHOSPHOKINASE 88 U/L (46-171); MB/CK RELATIVE INDEX 1.13 (< OR =4)
[2022-07-19] MEDS: NS 1,000 ML IV SCH ×3 (07:00→17:03)
[2022-07-19] MEDS: INSULIN LISPRO (NovoLOG) PER UNIT SC SCH ×5 (08:01→23:14)
[2022-07-19] MEDS: ACETAMINOPHEN TAB 650MG DOSE (2X325MG) PO PRN (08:03)
[2022-07-19] MEDS: SERTRALINE 100 MG TAB PO SCH (08:13)
[2022-07-19] MEDS: DIGOXIN 0.125 MG TAB PO SCH (08:40)
[2022-07-19] MEDS: MIDODRINE 5 MG TAB PO SCH ×4 (08:40→16:19)
[2022-07-19] MEDS ORDERED: amLODIPine 5 MG TAB PO SCH (09:00)
[2022-07-19] MEDS ORDERED: METOPROLOL SUCC (TopROL XL) 100MG *XL* TAB PO SCH (09:00)
[2022-07-19] MEDS ORDERED: PREGABALIN 100 MG CAP (LYRICA) PO SCH (09:00)
[2022-07-19] MEDS ORDERED: GABAPENTIN 300 MG CAP PO SCH (09:00)
[2022-07-19] MEDS: PIPERACILLIN/TAZOBACTAM SOD 3.375 GM in D5W MINI-BAG PLUS 50 ML IV SCH ×3 (11:30→22:05)
[2022-07-19 11:57] LABS: ABG BASE EXCESS -4.9 (-2.0-2.0); ABG HCO3 23.5 MEQ/L (22.0-26.0); ABG O2 SATURATION 96.5 % (95.0-99.0); ABG PARTIAL PRESSURE CO2 59.1 mmHg (35.0-45.0); ABG PARTIAL PRESSURE O2 98.5 mmHg (75.0-100.0); ABG STANDARD HCO3 20.4 MEQ/L (22.0-26.0); ABG TOTAL CO2 25.3 MEQ/L (23.0-31.0)
[2022-07-19 11:59] LABS: ABG pH (ARTERIAL) 7.217 UNITS (7.350-7.450)
[2022-07-19] MEDS ORDERED: NALOXONE INJ 0.4MG/1ML VIAL IV STA (12:03)
[2022-07-19 12:46] LABS: ALBUMIN 2.6 G/DL (3.2-5.2); BILIRUBIN,TOTAL 0.8 MG/DL (0.3-1.2); CALCIUM LEVEL 8.2 MG/DL (8.3-10.6); CK-MB VALUE MASS 3.2 NG/ML (<3.6); CREATININE FOR GFR 3.11 MG/DL (0.70-1.30); POTASSIUM SERUM 4.6 MMOL/L (3.5-5.1); TOTAL PROTEIN 6.5 G/DL (5.7-8.2)
[2022-07-19 12:48] LABS: MB/CK RELATIVE INDEX 0.77 (< OR =4)
[2022-07-19 13:17] LABS: HEMATOCRIT 38.9 % (42.0-52.0); HEMOGLOBIN 11.8 g/dl (13.5-17.5); MEAN CORPUSCULAR HEMOGLOBIN 29.4 pg (27.0-33.0); MEAN CORPUSCULAR HGB CONC 30.3 g/dl (32.0-36.5); MEAN CORPUSCULAR VOLUME 96.8 fl (80.0-96.0); PLATELET COUNT, AUTOMATED 234 10^3/uL (150-450); RED BLOOD COUNT 4.02 10^6/uL (4.30-6.10); WHITE BLOOD COUNT 20.2 10^3/uL (4.0-10.0)
[2022-07-19 15:04] LABS: ABG BASE EXCESS -4.7 (-2.0-2.0); ABG HCO3 23.2 MEQ/L (22.0-26.0); ABG O2 SATURATION 95.5 % (95.0-99.0); ABG PARTIAL PRESSURE CO2 55.5 mmHg (35.0-45.0); ABG PARTIAL PRESSURE O2 83.3 mmHg (75.0-100.0); ABG STANDARD HCO3 20.6 MEQ/L (22.0-26.0); ABG TOTAL CO2 24.9 MEQ/L (23.0-31.0)
[2022-07-19 15:06] LABS: ABG pH (ARTERIAL) 7.239 UNITS (7.350-7.450)
[2022-07-19] MEDS: PANTOPRAZOLE 40MG VIAL IV SCH (16:19)
[2022-07-19 19:58] LABS: ABG BASE EXCESS -4.5 (-2.0-2.0); ABG HCO3 23.1 MEQ/L (22.0-26.0); ABG PARTIAL PRESSURE CO2 53.4 mmHg (35.0-45.0); ABG PARTIAL PRESSURE O2 152.5 mmHg (75.0-100.0); ABG STANDARD HCO3 20.8 MEQ/L (22.0-26.0); ABG TOTAL CO2 24.7 MEQ/L (23.0-31.0); ABG pH (ARTERIAL) 7.253 UNITS (7.350-7.450)
[2022-07-19] MEDS: TAMSULOSIN 0.4 MG CAP PO SCH (20:00)
[2022-07-19] MEDS: FINASTERIDE 5MG TAB PO SCH (20:00)
[2022-07-19] MEDS ORDERED: INSULIN LISPRO (NovoLOG) PER UNIT SC SCH (21:00)
[2022-07-19] MEDS ORDERED: LEVEMIR (INSULIN DETEMIR) 1 UNITS/0.01ML SC SCH (21:00)
[2022-07-19 21:54] LABS: ABG BASE EXCESS -6.2 (-2.0-2.0); ABG HCO3 21.2 MEQ/L (22.0-26.0); ABG O2 SATURATION 98.9 % (95.0-99.0); ABG PARTIAL PRESSURE CO2 50.6 mmHg (35.0-45.0); ABG STANDARD HCO3 19.4 MEQ/L (22.0-26.0); ABG TOTAL CO2 22.8 MEQ/L (23.0-31.0)
[2022-07-19 21:55] LABS: ABG pH (ARTERIAL) 7.241 UNITS (7.350-7.450)
[2022-07-19 22:33] LABS: ALBUMIN 2.9 G/DL (3.2-5.2); CALCIUM LEVEL 8.2 MG/DL (8.3-10.6); CREATININE FOR GFR 3.14 MG/DL (0.70-1.30); GLOMERULAR FILTRATION RATE 20.8 (>42); PHOSPHORUS LEVEL 5.2 MG/DL (2.4-5.1); POTASSIUM SERUM 4.5 MMOL/L (3.5-5.1)
[2022-07-19] MEDS: SODIUM BICARBONATE 150 MEQ in D5W 1,000 ML IV SCH (23:07)
[2022-07-20] VITALS (15 sets, daily range): BP systolic 103–145; BP diastolic 48–70
[2022-07-20] MEDS: PIPERACILLIN/TAZOBACTAM SOD 3.375 GM in D5W MINI-BAG PLUS 50 ML IV SCH ×4 (05:05→22:00)
[2022-07-20 05:32] LABS: BASO # 0.1 10^3/uL (0.0-0.2); BASO % 0.3 % (0.0-1.0); EOS # 0.2 10^3/uL (0.0-0.5); HEMATOCRIT 38.5 % (42.0-52.0); HEMOGLOBIN 11.7 g/dl (13.5-17.5); LYMPH # 1.4 10^3/uL (1.5-5.0); LYMPH % 7.2 % (24.0-44.0); MEAN CORPUSCULAR HEMOGLOBIN 29.8 pg (27.0-33.0); MEAN CORPUSCULAR HGB CONC 30.4 g/dl (32.0-36.5); MONO # 1.3 10^3/uL (0.0-0.8); MONO % 6.7 % (2.0-8.0); NEUTROPHILS # 15.7 10^3/uL (1.5-8.5); PLATELET COUNT, AUTOMATED 217 10^3/uL (150-450); RED BLOOD COUNT 3.93 10^6/uL (4.30-6.10); WHITE BLOOD COUNT 18.7 10^3/uL (4.0-10.0)
[2022-07-20] MEDS: INSULIN LISPRO (NovoLOG) PER UNIT SC SCH ×4 (06:00→23:46)
[2022-07-20 06:09] LABS: ALBUMIN 2.4 G/DL (3.2-5.2); BILIRUBIN,TOTAL 0.7 MG/DL (0.3-1.2); CALCIUM LEVEL 8.4 MG/DL (8.3-10.6); CREATININE FOR GFR 2.91 MG/DL (0.70-1.30); GLOMERULAR FILTRATION RATE 22.7 (>42); MAGNESIUM LEVEL 2.2 MG/DL (1.8-2.4); POTASSIUM SERUM 5.2 MMOL/L (3.5-5.1); TOTAL PROTEIN 6.4 G/DL (5.7-8.2)
[2022-07-20] MEDS: PANTOPRAZOLE 40MG VIAL IV SCH (08:39)
[2022-07-20] MEDS: SERTRALINE 100 MG TAB PO SCH (08:39)
[2022-07-20] MEDS: MIDODRINE 5 MG TAB PO SCH ×3 (08:39→16:00)
[2022-07-20] MEDS: DIGOXIN 0.125 MG TAB PO SCH (08:39)
[2022-07-20] MEDS: SODIUM BICARBONATE 150 MEQ in D5W 1,000 ML IV SCH ×2 (10:30→14:14)
[2022-07-20 14:03] LABS: ABG PARTIAL PRESSURE CO2 51.3 mmHg (35.0-45.0); ABG pH (ARTERIAL) 7.319 UNITS (7.350-7.450)
[2022-07-20 14:04] LABS: ABG BASE EXCESS -0.9 (-2.0-2.0); ABG HCO3 25.8 MEQ/L (22.0-26.0); ABG O2 SATURATION 91.6 % (95.0-99.0); ABG PARTIAL PRESSURE O2 61.2 mmHg (75.0-100.0); ABG STANDARD HCO3 23.6 MEQ/L (22.0-26.0); ABG TOTAL CO2 27.4 MEQ/L (23.0-31.0)
[2022-07-20] MEDS: TAMSULOSIN 0.4 MG CAP PO SCH (20:13)
[2022-07-20] MEDS: FINASTERIDE 5MG TAB PO SCH (20:13)
[2022-07-20] MEDS: SILVER SULFADIAZINE 1% CR 50 GM JAR TOP SCH (23:46)
[2022-07-21] VITALS (18 sets, daily range): BP systolic 87–153; BP diastolic 41–65
[2022-07-21] MEDS: PIPERACILLIN/TAZOBACTAM SOD 3.375 GM in D5W MINI-BAG PLUS 50 ML IV SCH ×4 (04:37→20:51)
[2022-07-21 05:12] LABS: BASO % 0.3 % (0.0-1.0); EOS # 0.2 10^3/uL (0.0-0.5); EOS % 1.6 % (0.0-3.0); HEMATOCRIT 35.3 % (42.0-52.0); HEMOGLOBIN 10.9 g/dl (13.5-17.5); LYMPH # 1.2 10^3/uL (1.5-5.0); LYMPH % 9.6 % (24.0-44.0); MEAN CORPUSCULAR HEMOGLOBIN 29.4 pg (27.0-33.0); MEAN CORPUSCULAR HGB CONC 30.9 g/dl (32.0-36.5); MEAN CORPUSCULAR VOLUME 95.1 fl (80.0-96.0); MONO # 0.9 10^3/uL (0.0-0.8); MONO % 7.7 % (2.0-8.0); NEUTROPHILS # 9.7 10^3/uL (1.5-8.5); NEUTROPHILS % 80.1 % (36.0-66.0); PLATELET COUNT, AUTOMATED 224 10^3/uL (150-450); RED BLOOD COUNT 3.71 10^6/uL (4.30-6.10); WHITE BLOOD COUNT 12.1 10^3/uL (4.0-10.0)
[2022-07-21] MEDS: SODIUM BICARBONATE 150 MEQ in D5W 1,000 ML IV SCH (05:18)
[2022-07-21 05:46] LABS: ALBUMIN 2.1 G/DL (3.2-5.2); BILIRUBIN,TOTAL 0.6 MG/DL (0.3-1.2); CALCIUM LEVEL 8.1 MG/DL (8.3-10.6); CREATININE FOR GFR 2.11 MG/DL (0.70-1.30); GLOMERULAR FILTRATION RATE 32.8 (>42); MAGNESIUM LEVEL 2.2 MG/DL (1.8-2.4); POTASSIUM SERUM 4.5 MMOL/L (3.5-5.1)
[2022-07-21] MEDS: INSULIN LISPRO (NovoLOG) PER UNIT SC SCH ×3 (06:00→18:00)
[2022-07-21 06:38] LABS: ABG BASE EXCESS 3.5 (-2.0-2.0); ABG HCO3 28.9 MEQ/L (22.0-26.0); ABG O2 SATURATION 99.1 % (95.0-99.0); ABG PARTIAL PRESSURE CO2 47.4 mmHg (35.0-45.0); ABG PARTIAL PRESSURE O2 154.9 mmHg (75.0-100.0); ABG STANDARD HCO3 27.6 MEQ/L (22.0-26.0); ABG TOTAL CO2 30.4 MEQ/L (23.0-31.0); ABG pH (ARTERIAL) 7.403 UNITS (7.350-7.450)
[2022-07-21] MEDS: MIDODRINE 5 MG TAB PO SCH ×2 (08:00→11:14)
[2022-07-21] MEDS: PANTOPRAZOLE 40MG VIAL IV SCH (09:56)
[2022-07-21] MEDS: SERTRALINE 100 MG TAB PO SCH (09:56)
[2022-07-21] MEDS: DIGOXIN 0.125 MG TAB PO SCH (09:56)
[2022-07-21] MEDS: ACETAMINOPHEN TAB 650MG DOSE (2X325MG) PO PRN ×2 (09:56→16:21)
[2022-07-21] MEDS: SILVER SULFADIAZINE 1% CR 50 GM JAR TOP SCH (09:57)
[2022-07-21] MEDS: NS 1,000 ML IV SCH (12:57)
[2022-07-21 16:48] LABS: CLOSTRIDIUM DIFFICILE PCR NEGATIVE (NEGATIVE)
[2022-07-21] MEDS ORDERED: HALOPERIDOL 5MG/ML 1ML VIAL As Ordered ONE (18:16)
[2022-07-21] MEDS ORDERED: HALOPERIDOL 5MG/ML 1ML VIAL IV ONE (18:30)
[2022-07-21] MEDS ORDERED: QUEtiapine FUMARATE 25 MG TAB PO ONE (20:25)
[2022-07-21] MEDS: TAMSULOSIN 0.4 MG CAP PO SCH (20:51)
[2022-07-21] MEDS: FINASTERIDE 5MG TAB PO SCH (20:51)
[2022-07-21] MEDS ORDERED: diphenhydrAMINE 50MG/ML VIAL IV STA (23:19)
[2022-07-21] MEDS ORDERED: RAMELTEON 8 MG TAB (ROZEREM) PO ONE (23:20)
[2022-07-22] VITALS (8 sets, daily range): BP systolic 117–194; BP diastolic 49–81
[2022-07-22] MEDS: HALOPERIDOL 5MG/ML 1ML VIAL IV PRN (00:56)
[2022-07-22] MEDS: NS 1,000 ML IV SCH ×3 (00:58→22:50)
[2022-07-22 04:46] LABS: BASO # 0.1 10^3/uL (0.0-0.2); BASO % 0.5 % (0.0-1.0); EOS # 0.2 10^3/uL (0.0-0.5); EOS % 1.5 % (0.0-3.0); HEMATOCRIT 33.3 % (42.0-52.0); HEMOGLOBIN 10.5 g/dl (13.5-17.5); LYMPH # 1.2 10^3/uL (1.5-5.0); LYMPH % 12.1 % (24.0-44.0); MEAN CORPUSCULAR HEMOGLOBIN 29.2 pg (27.0-33.0); MEAN CORPUSCULAR HGB CONC 31.5 g/dl (32.0-36.5); MEAN CORPUSCULAR VOLUME 92.8 fl (80.0-96.0); MONO # 0.9 10^3/uL (0.0-0.8); MONO % 8.5 % (2.0-8.0); NEUTROPHILS # 7.8 10^3/uL (1.5-8.5); NEUTROPHILS % 76.7 % (36.0-66.0); PLATELET COUNT, AUTOMATED 215 10^3/uL (150-450); RED BLOOD COUNT 3.59 10^6/uL (4.30-6.10); WHITE BLOOD COUNT 10.1 10^3/uL (4.0-10.0)
[2022-07-22] MEDS: PIPERACILLIN/TAZOBACTAM SOD 3.375 GM in D5W MINI-BAG PLUS 50 ML IV SCH ×4 (04:49→21:10)
[2022-07-22 05:13] LABS: BILIRUBIN,TOTAL 0.7 MG/DL (0.3-1.2); CALCIUM LEVEL 7.9 MG/DL (8.3-10.6); CREATININE FOR GFR 1.62 MG/DL (0.70-1.30); GLOMERULAR FILTRATION RATE 44.6 (>42); POTASSIUM SERUM 3.6 MMOL/L (3.5-5.1); TOTAL PROTEIN 5.4 G/DL (5.7-8.2)
[2022-07-22] MEDS: INSULIN LISPRO (NovoLOG) PER UNIT SC SCH ×4 (06:00→18:00)
[2022-07-22] MEDS ORDERED: MIDODRINE 5 MG TAB PO SCH (08:00)
[2022-07-22] MEDS: PANTOPRAZOLE 40MG VIAL IV SCH (08:07)
[2022-07-22] MEDS: SERTRALINE 100 MG TAB PO SCH (08:07)
[2022-07-22] MEDS: DIGOXIN 0.125 MG TAB PO SCH (08:07)
[2022-07-22] MEDS: SILVER SULFADIAZINE 1% CR 50 GM JAR TOP SCH (08:08)
[2022-07-22] MEDS ORDERED: LEVEMIR (INSULIN DETEMIR) 1 UNITS/0.01ML SC SCH (08:15)
[2022-07-22] MEDS ORDERED: GLUCOSE 4GM CHEW TABLET PO PRN (08:15)
[2022-07-22] MEDS ORDERED: DEXTROSE 50% 50ML SYRINGE IV PRN (08:15)
[2022-07-22] MEDS ORDERED: INSULIN LISPRO (NovoLOG) PER UNIT SC SCH ×2 (08:15)
[2022-07-22] MEDS ORDERED: GLUCAGON INJ 1MG VIAL SC PRN (08:15)
[2022-07-22] MEDS ORDERED: NS 1,000 ML IV SCH (08:15)
[2022-07-22 08:45] LABS: BASO # 0.1 10^3/uL (0.0-0.2); BASO % 0.6 % (0.0-1.0); EOS # 0.3 10^3/uL (0.0-0.5); EOS % 2.2 % (0.0-3.0); HEMATOCRIT 36.3 % (42.0-52.0); HEMOGLOBIN 11.5 g/dl (13.5-17.5); LYMPH # 1.4 10^3/uL (1.5-5.0); LYMPH % 12.6 % (24.0-44.0); MEAN CORPUSCULAR HEMOGLOBIN 29.4 pg (27.0-33.0); MEAN CORPUSCULAR HGB CONC 31.7 g/dl (32.0-36.5); MEAN CORPUSCULAR VOLUME 92.8 fl (80.0-96.0); MONO # 0.9 10^3/uL (0.0-0.8); MONO % 7.7 % (2.0-8.0); NEUTROPHILS # 8.7 10^3/uL (1.5-8.5); NEUTROPHILS % 76.3 % (36.0-66.0); PLATELET COUNT, AUTOMATED 240 10^3/uL (150-450); RED BLOOD COUNT 3.91 10^6/uL (4.30-6.10); WHITE BLOOD COUNT 11.4 10^3/uL (4.0-10.0)
[2022-07-22 09:12] LABS: CPK CREATINE PHOSPHOKINASE 220 U/L (46-171)
[2022-07-22 09:17] LABS: ALBUMIN 2.2 G/DL (3.2-5.2); ALKALINE PHOSPHATASE 100 U/L (46-116); ALT/SGPT 48 U/L (7.0-40); AST/SGOT 52 U/L (<34); BILIRUBIN,TOTAL 0.8 MG/DL (0.3-1.2); BLOOD UREA NITROGEN 37 MG/DL (9-23); CALCIUM LEVEL 8.6 MG/DL (8.3-10.6); CARBON DIOXIDE LEVEL 26 MMOL/L (20-31); CHLORIDE LEVEL 107 MMOL/L (98-107); CK-MB VALUE MASS < 1.0 NG/ML (<3.6); CREATININE FOR GFR 1.44 MG/DL (0.70-1.30); GLOMERULAR FILTRATION RATE 51.1 (>42); GLUCOSE, FASTING 135 MG/DL (74-106); MB/CK RELATIVE INDEX 0.45 (< OR =4); POTASSIUM SERUM 3.5 MMOL/L (3.5-5.1); SODIUM LEVEL 142 MMOL/L (136-145); TOTAL PROTEIN 6.2 G/DL (5.7-8.2)
[2022-07-22] MEDS: POTASSIUM CHLORIDE 10MEQ SR TABLET PO SCH ×3 (12:26→21:10)
[2022-07-22] MEDS: FINASTERIDE 5MG TAB PO SCH (21:10)
[2022-07-22] MEDS: TAMSULOSIN 0.4 MG CAP PO SCH (21:11)
[2022-07-22] MEDS: ALBUTEROL SULFATE 2.5MG/0.5ML INH NEB SOLN NEB PRN (21:47)
[2022-07-23 04:00] VITALS: BP 180/75
[2022-07-23] MEDS: PIPERACILLIN/TAZOBACTAM SOD 3.375 GM in D5W MINI-BAG PLUS 50 ML IV SCH ×4 (04:09→20:46)
[2022-07-23 04:52] LABS: BASO # 0.1 10^3/uL (0.0-0.2); BASO % 0.6 % (0.0-1.0); EOS # 0.3 10^3/uL (0.0-0.5); EOS % 2.3 % (0.0-3.0); HEMATOCRIT 36.1 % (42.0-52.0); HEMOGLOBIN 11.3 g/dl (13.5-17.5); LYMPH # 1.3 10^3/uL (1.5-5.0); LYMPH % 11.4 % (24.0-44.0); MEAN CORPUSCULAR HEMOGLOBIN 29.4 pg (27.0-33.0); MEAN CORPUSCULAR HGB CONC 31.3 g/dl (32.0-36.5); MONO # 0.8 10^3/uL (0.0-0.8); NEUTROPHILS # 8.9 10^3/uL (1.5-8.5); NEUTROPHILS % 78.1 % (36.0-66.0); PLATELET COUNT, AUTOMATED 235 10^3/uL (150-450); RED BLOOD COUNT 3.84 10^6/uL (4.30-6.10); WHITE BLOOD COUNT 11.4 10^3/uL (4.0-10.0)
[2022-07-23 05:31] LABS: ALBUMIN 2.3 G/DL (3.2-5.2); ALKALINE PHOSPHATASE 97 U/L (46-116); ALT/SGPT 49 U/L (7.0-40); AST/SGOT 53 U/L (<34); BILIRUBIN,TOTAL 0.6 MG/DL (0.3-1.2); BLOOD UREA NITROGEN 28 MG/DL (9-23); CALCIUM LEVEL 8.7 MG/DL (8.3-10.6); CARBON DIOXIDE LEVEL 24 MMOL/L (20-31); CHLORIDE LEVEL 109 MMOL/L (98-107); CREATININE FOR GFR 1.24 MG/DL (0.70-1.30); GLOMERULAR FILTRATION RATE > 60.0 (>42); GLUCOSE, FASTING 144 MG/DL (74-106); MAGNESIUM LEVEL 1.8 MG/DL (1.8-2.4); POTASSIUM SERUM 4.3 MMOL/L (3.5-5.1); SODIUM LEVEL 145 MMOL/L (136-145); TOTAL PROTEIN 6.3 G/DL (5.7-8.2)
[2022-07-23] MEDS: INSULIN LISPRO (NovoLOG) PER UNIT SC SCH ×5 (05:34→21:00)
[2022-07-23 08:15] VITALS: BP 170/75
[2022-07-23] MEDS: POTASSIUM CHLORIDE 10MEQ SR TABLET PO SCH ×3 (09:21→20:46)
[2022-07-23] MEDS: PANTOPRAZOLE 40MG VIAL IV SCH (09:21)
[2022-07-23] MEDS: SERTRALINE 100 MG TAB PO SCH (09:21)
[2022-07-23] MEDS: SILVER SULFADIAZINE 1% CR 50 GM JAR TOP SCH (09:22)
[2022-07-23] MEDS: DIGOXIN 0.125 MG TAB PO SCH (09:22)
[2022-07-23 11:29] VITALS: BP 175/69
[2022-07-23] MEDS: NS 1,000 ML IV SCH (13:53)
[2022-07-23 14:00] VITALS: BP 154/74
[2022-07-23 20:00] VITALS: BP 171/74
[2022-07-23] MEDS: TAMSULOSIN 0.4 MG CAP PO SCH (20:10)
[2022-07-23] MEDS: FINASTERIDE 5MG TAB PO SCH (20:46)
[2022-07-23] MEDS: ALBUTEROL SULFATE 2.5MG/0.5ML INH NEB SOLN NEB PRN (22:25)
[2022-07-23] MEDS: HALOPERIDOL 5MG/ML 1ML VIAL IV PRN (23:40)
[2022-07-24] MEDS: ACETAMINOPHEN TAB 650MG DOSE (2X325MG) PO PRN (00:23)
[2022-07-24] MEDS: NS 1,000 ML IV SCH ×2 (02:15→15:40)
[2022-07-24] MEDS: PIPERACILLIN/TAZOBACTAM SOD 3.375 GM in D5W MINI-BAG PLUS 50 ML IV SCH ×4 (04:40→21:18)
[2022-07-24 06:00] VITALS: BP 142/70
[2022-07-24 06:57] LABS: BASO # 0.1 10^3/uL (0.0-0.2); BASO % 0.5 % (0.0-1.0); EOS # 0.3 10^3/uL (0.0-0.5); HEMATOCRIT 35.9 % (42.0-52.0); HEMOGLOBIN 11.4 g/dl (13.5-17.5); LYMPH # 1.4 10^3/uL (1.5-5.0); LYMPH % 10.6 % (24.0-44.0); MEAN CORPUSCULAR HEMOGLOBIN 29.5 pg (27.0-33.0); MEAN CORPUSCULAR HGB CONC 31.8 g/dl (32.0-36.5); MEAN CORPUSCULAR VOLUME 92.8 fl (80.0-96.0); MONO # 0.9 10^3/uL (0.0-0.8); MONO % 6.4 % (2.0-8.0); NEUTROPHILS # 10.6 10^3/uL (1.5-8.5); NEUTROPHILS % 79.7 % (36.0-66.0); PLATELET COUNT, AUTOMATED 282 10^3/uL (150-450); RED BLOOD COUNT 3.87 10^6/uL (4.30-6.10); WHITE BLOOD COUNT 13.3 10^3/uL (4.0-10.0)
[2022-07-24 07:25] LABS: ALBUMIN 2.2 G/DL (3.2-5.2); ALKALINE PHOSPHATASE 96 U/L (46-116); ALT/SGPT 52 U/L (7.0-40); AST/SGOT 49 U/L (<34); BILIRUBIN,TOTAL 0.7 MG/DL (0.3-1.2); BLOOD UREA NITROGEN 20 MG/DL (9-23); CALCIUM LEVEL 8.5 MG/DL (8.3-10.6); CARBON DIOXIDE LEVEL 25 MMOL/L (20-31); CHLORIDE LEVEL 107 MMOL/L (98-107); CREATININE FOR GFR 1.08 MG/DL (0.70-1.30); GLOMERULAR FILTRATION RATE > 60.0 (>42); GLUCOSE, FASTING 162 MG/DL (74-106); MAGNESIUM LEVEL 1.4 MG/DL (1.8-2.4); POTASSIUM SERUM 3.7 MMOL/L (3.5-5.1); SODIUM LEVEL 144 MMOL/L (136-145); TOTAL PROTEIN 6.2 G/DL (5.7-8.2)
[2022-07-24] MEDS: INSULIN LISPRO (NovoLOG) PER UNIT SC SCH ×4 (07:30→21:00)
[2022-07-24] MEDS: POTASSIUM CHLORIDE 10MEQ SR TABLET PO SCH ×3 (08:33→21:17)
[2022-07-24] MEDS: SERTRALINE 100 MG TAB PO SCH (08:33)
[2022-07-24] MEDS: PANTOPRAZOLE 40MG VIAL IV SCH (08:33)
[2022-07-24] MEDS: DIGOXIN 0.125 MG TAB PO SCH (08:34)
[2022-07-24] MEDS: SILVER SULFADIAZINE 1% CR 50 GM JAR TOP SCH (08:39)
[2022-07-24] MEDS ORDERED: MAG SULF 1GM/100ML (MAG RUN) 1 GM in IV 1 EA IV ONE (08:55)
[2022-07-24 14:00] VITALS: BP 140/84
[2022-07-24 19:44] LABS: CLOSTRIDIUM DIFFICILE PCR NEGATIVE (NEGATIVE)
[2022-07-24] MEDS: TAMSULOSIN 0.4 MG CAP PO SCH (21:17)
[2022-07-24] MEDS: FINASTERIDE 5MG TAB PO SCH (21:17)
[2022-07-24 22:00] VITALS: BP 160/98
[2022-07-25] MEDS: PIPERACILLIN/TAZOBACTAM SOD 3.375 GM in D5W MINI-BAG PLUS 50 ML IV SCH ×4 (03:50→21:28)
[2022-07-25 05:56] VITALS: BP 159/91
[2022-07-25 06:24] LABS: BASO # 0.1 10^3/uL (0.0-0.2); BASO % 0.5 % (0.0-1.0); EOS # 0.1 10^3/uL (0.0-0.5); EOS % 0.4 % (0.0-3.0); HEMATOCRIT 38.6 % (42.0-52.0); LYMPH # 1.7 10^3/uL (1.5-5.0); LYMPH % 9.3 % (24.0-44.0); MEAN CORPUSCULAR HEMOGLOBIN 28.9 pg (27.0-33.0); MEAN CORPUSCULAR HGB CONC 31.1 g/dl (32.0-36.5); MONO # 1.2 10^3/uL (0.0-0.8); MONO % 6.4 % (2.0-8.0); NEUTROPHILS # 15.2 10^3/uL (1.5-8.5); NEUTROPHILS % 82.6 % (36.0-66.0); PLATELET COUNT, AUTOMATED 344 10^3/uL (150-450); RED BLOOD COUNT 4.15 10^6/uL (4.30-6.10); WHITE BLOOD COUNT 18.4 10^3/uL (4.0-10.0)
[2022-07-25 06:47] LABS: ALBUMIN 2.5 G/DL (3.2-5.2); ALKALINE PHOSPHATASE 109 U/L (46-116); ALT/SGPT 65 U/L (7.0-40); AST/SGOT 57 U/L (<34); BILIRUBIN,TOTAL 0.8 MG/DL (0.3-1.2); BLOOD UREA NITROGEN 24 MG/DL (9-23); CALCIUM LEVEL 8.9 MG/DL (8.3-10.6); CARBON DIOXIDE LEVEL 20 MMOL/L (20-31); CHLORIDE LEVEL 106 MMOL/L (98-107); CREATININE FOR GFR 1.18 MG/DL (0.70-1.30); GLOMERULAR FILTRATION RATE > 60.0 (>42); GLUCOSE, FASTING 211 MG/DL (74-106); MAGNESIUM LEVEL 1.6 MG/DL (1.8-2.4); POTASSIUM SERUM 3.9 MMOL/L (3.5-5.1); SODIUM LEVEL 143 MMOL/L (136-145); TOTAL PROTEIN 6.6 G/DL (5.7-8.2)
[2022-07-25] MEDS: INSULIN LISPRO (NovoLOG) PER UNIT SC SCH ×4 (08:31→21:00)
[2022-07-25] MEDS: PANTOPRAZOLE 40MG VIAL IV SCH (08:31)
[2022-07-25] MEDS: POTASSIUM CHLORIDE 10MEQ SR TABLET PO SCH ×3 (08:31→21:28)
[2022-07-25] MEDS: SERTRALINE 100 MG TAB PO SCH (08:31)
[2022-07-25] MEDS: SILVER SULFADIAZINE 1% CR 50 GM JAR TOP SCH (08:32)
[2022-07-25] MEDS: DIGOXIN 0.125 MG TAB PO SCH (08:32)
[2022-07-25] MEDS ORDERED: VANCOMYCIN ORAL SOL 250MG/5ML ORAL SYRINGE PO SCH (09:25)
[2022-07-25] MEDS ORDERED: DIGOXIN INJ 0.5 MG/2 ML AMP IV ONE (10:00)
[2022-07-25] MEDS ORDERED: MAG SULF 1GM/100ML (MAG RUN) 1 GM in IV 1 EA IV ONE (10:00)
[2022-07-25] MEDS: METOPROLOL TART 25 MG TABLET PO SCH ×3 (12:15→23:19)
[2022-07-25] MEDS: NS 1,000 ML IV SCH (12:18)
[2022-07-25 14:20] VITALS: BP 144/93
[2022-07-25 21:00] VITALS: BP 144/89
[2022-07-25] MEDS: FINASTERIDE 5MG TAB PO SCH (21:28)
[2022-07-25] MEDS: TAMSULOSIN 0.4 MG CAP PO SCH (21:28)
[2022-07-25] MEDS ORDERED: FUROSEMIDE 20MG/2ML VIAL IV ONE (23:00)
[2022-07-26] VITALS (8 sets, daily range): BP systolic 134–160; BP diastolic 67–89
[2022-07-26] MEDS: PIPERACILLIN/TAZOBACTAM SOD 3.375 GM in D5W MINI-BAG PLUS 50 ML IV SCH (04:59)
[2022-07-26] MEDS: METOPROLOL TART 25 MG TABLET PO SCH ×3 (05:02→18:10)
[2022-07-26 06:10] LABS: BASO # 0.1 10^3/uL (0.0-0.2); BASO % 0.4 % (0.0-1.0); EOS # 0.1 10^3/uL (0.0-0.5); EOS % 0.3 % (0.0-3.0); HEMATOCRIT 39.1 % (42.0-52.0); HEMOGLOBIN 12.1 g/dl (13.5-17.5); LYMPH # 1.6 10^3/uL (1.5-5.0); LYMPH % 8.1 % (24.0-44.0); MEAN CORPUSCULAR HEMOGLOBIN 29.2 pg (27.0-33.0); MEAN CORPUSCULAR HGB CONC 30.9 g/dl (32.0-36.5); MEAN CORPUSCULAR VOLUME 94.4 fl (80.0-96.0); MONO # 0.9 10^3/uL (0.0-0.8); MONO % 4.4 % (2.0-8.0); PLATELET COUNT, AUTOMATED 331 10^3/uL (150-450); RED BLOOD COUNT 4.14 10^6/uL (4.30-6.10); WHITE BLOOD COUNT 19.8 10^3/uL (4.0-10.0)
[2022-07-26 06:35] LABS: ALBUMIN 2.4 G/DL (3.2-5.2); BILIRUBIN,TOTAL 0.8 MG/DL (0.3-1.2); CALCIUM LEVEL 8.4 MG/DL (8.3-10.6); CREATININE FOR GFR 1.39 MG/DL (0.70-1.30); DIGOXIN LEVEL 0.9 NG/ML (0.8-2.0); GLOMERULAR FILTRATION RATE 53.2 (>42); MAGNESIUM LEVEL 1.7 MG/DL (1.8-2.4); POTASSIUM SERUM 3.9 MMOL/L (3.5-5.1); TOTAL PROTEIN 6.4 G/DL (5.7-8.2)
[2022-07-26] MEDS ORDERED: MAG SULF 1GM/100ML (MAG RUN) 1 GM in IV 1 EA IV ONE (08:00)
[2022-07-26 08:01] LABS: C REACTIVE PROTEIN QUANTITATIV 8.3 MG/DL (<1.0)
[2022-07-26] MEDS: PANTOPRAZOLE 40MG VIAL IV SCH (08:06)
[2022-07-26] MEDS: POTASSIUM CHLORIDE 10MEQ SR TABLET PO SCH ×3 (08:07→21:29)
[2022-07-26] MEDS: INSULIN LISPRO (NovoLOG) PER UNIT SC SCH ×4 (08:07→21:00)
[2022-07-26] MEDS: DIGOXIN 0.125 MG TAB PO SCH (08:08)
[2022-07-26] MEDS: SERTRALINE 100 MG TAB PO SCH (08:08)
[2022-07-26] MEDS: SILVER SULFADIAZINE 1% CR 50 GM JAR TOP SCH (08:08)
[2022-07-26] MEDS: NS 1,000 ML IV SCH (08:22)
[2022-07-26 08:53] LABS: ERYTHROCYTE SEDIMENTATION RATE 97 mm/hr (0-20)
[2022-07-26 09:03] LABS: ABG HCO3 23.5 MMOL/L (22.0-26.0); ABG O2 SATURATION 95.7 % (95.0-99.0); ABG PARTIAL PRESSURE O2 84.9 mmHg (75.0-100.0); ABG STANDARD HCO3 22.7 MMOL/L. (22.0-26.0); ABG TOTAL CO2 24.8 MMOL/L (23.0-31.0); ABG pH (ARTERIAL) 7.355 UNITS (7.350-7.450)
[2022-07-26 09:54] LABS: CK-MB VALUE MASS 4.8 NG/ML (<3.6)
[2022-07-26 09:55] LABS: MB/CK RELATIVE INDEX 6.76 (< OR =4)
[2022-07-26] MEDS ORDERED: ASPIRIN 81MG CHEW TABLET PO ONE (10:10)
[2022-07-26] MEDS ORDERED: NITROGLYCERIN 0.4MG SUBL TABLET SL PRN (10:10)
[2022-07-26] MEDS ORDERED: FUROSEMIDE 100MG/10ML VIAL IV ONE (11:10)
[2022-07-26 12:17] LABS: HEMATOCRIT 37.9 % (42.0-52.0); HEMOGLOBIN 11.8 g/dl (13.5-17.5); MEAN CORPUSCULAR HEMOGLOBIN 29.3 pg (27.0-33.0); MEAN CORPUSCULAR HGB CONC 31.1 g/dl (32.0-36.5); PLATELET COUNT, AUTOMATED 313 10^3/uL (150-450); RED BLOOD COUNT 4.03 10^6/uL (4.30-6.10); WHITE BLOOD COUNT 19.4 10^3/uL (4.0-10.0)
[2022-07-26] MEDS ORDERED: HEPARIN SOD (PORCINE) 5000UNITS/ML 1ML VIAL/SYRINGE IV ONE (13:00)
[2022-07-26] MEDS: FUROSEMIDE injection 250 MG in D5W 225 ML IV SCH (13:49)
[2022-07-26] MEDS: HEPARIN DRIP 25,000 UNITS in IV 1 EA IV SCH (13:50)
[2022-07-26] MEDS ORDERED: FUROSEMIDE injection 250 MG in D5W 225 ML IV SCH (14:00)
[2022-07-26] MEDS ORDERED: LIDOCAINE 2% 5ML JELLY UROJET TOP PRN (14:40)
[2022-07-26] MEDS: HEPARIN SOD (PORCINE) 5000UNITS/ML 1ML VIAL/SYRINGE IV PRN (20:37)
[2022-07-26] MEDS: FINASTERIDE 5MG TAB PO SCH (21:29)
[2022-07-26] MEDS: TAMSULOSIN 0.4 MG CAP PO SCH (21:29)
[2022-07-26 22:21] LABS: APPEARANCE, URINE MANUAL CLOUDY (CLEAR); BILIRUBIN, URINE MANUAL NEGATIVE (NEGATIVE); BLOOD URINE MANUAL POSITIVE (NEGATIVE); COLOR, URINE MANUAL RED (YELLOW); GLUCOSE, URINE (UA) MANUAL NEGATIVE (NEGATIVE); KETONE, URINE MANUAL NEGATIVE (NEGATIVE); LEUKOCYTE ESTERASE, URINE MAN TRACE (NEGATIVE); NITRITE, URINE MANUAL NEGATIVE (NEGATIVE); PROTEIN, URINE MANUAL 2+ mg/dL (NEGATIVE); SPECIFIC GRAVITY,URINE MANUAL 1.015 (1.002-1.035); UROBILINOGEN, URINE MANUAL NORMAL (NORMAL)
[2022-07-26 22:24] LABS: RBC, URINE TNTC /hpf (0-3); SQUAMOUS EPITHELIAL CELL URINE NONE SEEN /hpf (SMALL AMT); WBC, URINE 0-1 /hpf (0-3)
[2022-07-26 22:25] LABS: BACTERIA, URINE SMALL AMOUNT; HYALINE CAST, URINE NONE SEEN /lpf (0-1)
[2022-07-27] MEDS: METOPROLOL TART 25 MG TABLET PO SCH ×4 (00:26→17:15)
[2022-07-27 04:03] VITALS: BP 115/62
[2022-07-27 06:08] LABS: BASO # 0.1 10^3/uL (0.0-0.2); BASO % 0.5 % (0.0-1.0); EOS # 0.1 10^3/uL (0.0-0.5); EOS % 0.4 % (0.0-3.0); HEMOGLOBIN 12.8 g/dl (13.5-17.5); LYMPH # 1.3 10^3/uL (1.5-5.0); LYMPH % 8.5 % (24.0-44.0); MEAN CORPUSCULAR HEMOGLOBIN 29.7 pg (27.0-33.0); MEAN CORPUSCULAR HGB CONC 31.2 g/dl (32.0-36.5); MEAN CORPUSCULAR VOLUME 95.1 fl (80.0-96.0); MONO # 0.7 10^3/uL (0.0-0.8); MONO % 4.5 % (2.0-8.0); NEUTROPHILS # 13.1 10^3/uL (1.5-8.5); NEUTROPHILS % 85.5 % (36.0-66.0); PLATELET COUNT, AUTOMATED 251 10^3/uL (150-450); RED BLOOD COUNT 4.31 10^6/uL (4.30-6.10); WHITE BLOOD COUNT 15.3 10^3/uL (4.0-10.0)
[2022-07-27 06:43] LABS: ALBUMIN 2.4 G/DL (3.2-5.2); ALKALINE PHOSPHATASE 111 U/L (46-116); ALT/SGPT 69 U/L (7.0-40); AST/SGOT 87 U/L (<34); BILIRUBIN,TOTAL 0.9 MG/DL (0.3-1.2); BLOOD UREA NITROGEN 38 MG/DL (9-23); CALCIUM LEVEL 8.2 MG/DL (8.3-10.6); CARBON DIOXIDE LEVEL 24 MMOL/L (20-31); CHLORIDE LEVEL 104 MMOL/L (98-107); CK-MB VALUE MASS 3.4 NG/ML (<3.6); CPK CREATINE PHOSPHOKINASE 81 U/L (46-171); CREATININE FOR GFR 1.52 MG/DL (0.70-1.30); GLUCOSE, FASTING 228 MG/DL (74-106); MAGNESIUM LEVEL 1.7 MG/DL (1.8-2.4); MB/CK RELATIVE INDEX 4.19 (< OR =4); POTASSIUM SERUM 4.9 MMOL/L (3.5-5.1); SODIUM LEVEL 140 MMOL/L (136-145); TOTAL PROTEIN 6.9 G/DL (5.7-8.2)
[2022-07-27 07:35] VITALS: BP 122/79
[2022-07-27] MEDS ORDERED: MECLIZINE 25 MG TABLET PO PRN (07:35)
[2022-07-27] MEDS: POTASSIUM CHLORIDE 10MEQ SR TABLET PO SCH ×2 (09:00→15:04)
[2022-07-27] MEDS ORDERED: MAG SULF 1GM/100ML (MAG RUN) 1 GM in IV 1 EA IV ONE (09:55)
[2022-07-27] MEDS ORDERED: metOLazone 5 MG TAB PO ONE (09:55)
[2022-07-27] MEDS: SERTRALINE 100 MG TAB PO SCH (10:01)
[2022-07-27] MEDS: DIGOXIN 0.125 MG TAB PO SCH (10:01)
[2022-07-27] MEDS: ASPIRIN 81MG CHEW TABLET PO SCH (10:01)
[2022-07-27] MEDS: INSULIN LISPRO (NovoLOG) PER UNIT SC SCH ×5 (10:02→20:03)
[2022-07-27] MEDS: PANTOPRAZOLE 40MG VIAL IV SCH (10:02)
[2022-07-27] MEDS: SILVER SULFADIAZINE 1% CR 50 GM JAR TOP SCH (10:03)
[2022-07-27] MEDS: HEPARIN SOD (PORCINE) 5000UNITS/ML 1ML VIAL/SYRINGE IV PRN ×3 (10:25→22:34)
[2022-07-27 10:37] LABS: HIV SCREEN CENTAUR SOURCE NEGATIVE (NEGATIVE)
[2022-07-27 11:11] VITALS: BP 138/67
[2022-07-27] MEDS: FUROSEMIDE injection 250 MG in D5W 225 ML IV SCH (14:01)
[2022-07-27 15:23] VITALS: BP 136/75
[2022-07-27 16:13] LABS: INR 1.22; PARTIAL THROMBOPLASTIN TIME 31.5 SECONDS (24.8-34.2); PROTHROMBIN TIME 15.7 SECONDS (12.5-14.5)
[2022-07-27 17:12] LABS: HEPATITIS B SURFACE ANTIGEN NEGATIVE (NEGATIVE)
[2022-07-27 20:01] VITALS: BP 148/66
[2022-07-27] MEDS: TAMSULOSIN 0.4 MG CAP PO SCH (20:28)
[2022-07-27] MEDS: FINASTERIDE 5MG TAB PO SCH (20:28)
[2022-07-27 22:12] LABS: INR 1.17; PROTHROMBIN TIME 15.1 SECONDS (12.5-14.5)
[2022-07-27 22:13] LABS: PARTIAL THROMBOPLASTIN TIME 37.3 SECONDS (24.8-34.2)
[2022-07-27] MEDS: HEPARIN DRIP 25,000 UNITS in IV 1 EA IV SCH (22:36)
[2022-07-27 23:54] VITALS: BP 131/61
[2022-07-28] MEDS: METOPROLOL TART 25 MG TABLET PO SCH ×4 (00:57→17:44)
[2022-07-28] MEDS: FUROSEMIDE injection 250 MG in D5W 225 ML IV SCH ×3 (01:44→17:38)
[2022-07-28 03:26] VITALS: BP 121/59
[2022-07-28 04:36] LABS: BASO # 0.1 10^3/uL (0.0-0.2); BASO % 0.6 % (0.0-1.0); EOS # 0.2 10^3/uL (0.0-0.5); EOS % 1.4 % (0.0-3.0); HEMATOCRIT 37.6 % (42.0-52.0); LYMPH # 1.5 10^3/uL (1.5-5.0); LYMPH % 12.7 % (24.0-44.0); MEAN CORPUSCULAR HEMOGLOBIN 29.3 pg (27.0-33.0); MEAN CORPUSCULAR HGB CONC 31.9 g/dl (32.0-36.5); MEAN CORPUSCULAR VOLUME 91.7 fl (80.0-96.0); MONO # 0.8 10^3/uL (0.0-0.8); MONO % 6.3 % (2.0-8.0); NEUTROPHILS # 9.4 10^3/uL (1.5-8.5); NEUTROPHILS % 78.4 % (36.0-66.0); PLATELET COUNT, AUTOMATED 255 10^3/uL (150-450)
[2022-07-28 05:12] LABS: DIGOXIN LEVEL 0.9 NG/ML (0.8-2.0)
[2022-07-28 05:14] LABS: ALBUMIN 2.5 G/DL (3.2-5.2); BILIRUBIN,TOTAL 0.8 MG/DL (0.3-1.2); CALCIUM LEVEL 8.6 MG/DL (8.3-10.6); CREATININE FOR GFR 1.59 MG/DL (0.70-1.30); GLOMERULAR FILTRATION RATE 45.5 (>42); MAGNESIUM LEVEL 1.5 MG/DL (1.8-2.4); POTASSIUM SERUM 3.6 MMOL/L (3.5-5.1); TOTAL PROTEIN 6.3 G/DL (5.7-8.2)
[2022-07-28] MEDS: HEPARIN DRIP 25,000 UNITS in IV 1 EA IV SCH ×2 (05:31→12:22)
[2022-07-28 08:26] VITALS: BP 135/58
[2022-07-28] MEDS ORDERED: MAG SULF 1GM/100ML (MAG RUN) 1 GM in IV 1 EA IV ONE (09:25)
[2022-07-28] MEDS: DIGOXIN 0.125 MG TAB PO SCH (09:43)
[2022-07-28] MEDS: SERTRALINE 100 MG TAB PO SCH (09:43)
[2022-07-28] MEDS: PANTOPRAZOLE 40MG VIAL IV SCH (09:43)
[2022-07-28] MEDS: ASPIRIN 81MG CHEW TABLET PO SCH (09:43)
[2022-07-28] MEDS: INSULIN LISPRO (NovoLOG) PER UNIT SC SCH ×4 (09:44→21:00)
[2022-07-28] MEDS: SILVER SULFADIAZINE 1% CR 50 GM JAR TOP SCH (09:45)
[2022-07-28] MEDS: POTASSIUM CHLORIDE 10MEQ SR TABLET PO SCH ×3 (09:47→21:13)
[2022-07-28 12:15] VITALS: BP 151/63
[2022-07-28] MEDS ORDERED: LIDOCAINE 1% MDV 20ML VIAL As Ordered ONE (14:08)
[2022-07-28 16:01] LABS: INR 1.25
[2022-07-28 16:27] VITALS: BP 147/65
[2022-07-28] MEDS: SODIUM CHLORIDE 0.9% INJ 10 ML SYR IV SCH (17:44)
[2022-07-28 19:51] VITALS: BP 126/56
[2022-07-28] MEDS: TAMSULOSIN 0.4 MG CAP PO SCH (21:13)
[2022-07-28] MEDS: FINASTERIDE 5MG TAB PO SCH (21:13)
[2022-07-28] MEDS: ACETAMINOPHEN TAB 650MG DOSE (2X325MG) PO PRN (21:14)
[2022-07-29] MEDS: FUROSEMIDE injection 250 MG in D5W 225 ML IV SCH ×4 (00:06→22:57)
[2022-07-29] MEDS: METOPROLOL TART 25 MG TABLET PO SCH ×4 (00:08→18:00)
[2022-07-29] MEDS: HEPARIN DRIP 25,000 UNITS in IV 1 EA IV SCH ×2 (00:08→16:24)
[2022-07-29 01:06] LABS: INR 1.36
[2022-07-29 01:44] LABS: PARTIAL THROMBOPLASTIN TIME > 240.0 SECONDS (24.8-34.2)
[2022-07-29 04:00] VITALS: BP 118/72
[2022-07-29 04:22] LABS: BASO # 0.1 10^3/uL (0.0-0.2); BASO % 0.5 % (0.0-1.0); EOS # 0.3 10^3/uL (0.0-0.5); EOS % 2.3 % (0.0-3.0); HEMATOCRIT 36.8 % (42.0-52.0); LYMPH % 15.5 % (24.0-44.0); MEAN CORPUSCULAR HEMOGLOBIN 29.6 pg (27.0-33.0); MEAN CORPUSCULAR HGB CONC 32.6 g/dl (32.0-36.5); MEAN CORPUSCULAR VOLUME 90.6 fl (80.0-96.0); MONO # 0.8 10^3/uL (0.0-0.8); MONO % 6.3 % (2.0-8.0); NEUTROPHILS # 9.5 10^3/uL (1.5-8.5); NEUTROPHILS % 74.6 % (36.0-66.0); PLATELET COUNT, AUTOMATED 280 10^3/uL (150-450); RED BLOOD COUNT 4.06 10^6/uL (4.30-6.10); WHITE BLOOD COUNT 12.7 10^3/uL (4.0-10.0)
[2022-07-29 05:32] LABS: ALBUMIN 2.5 G/DL (3.2-5.2); BILIRUBIN,TOTAL 0.7 MG/DL (0.3-1.2); CALCIUM LEVEL 8.9 MG/DL (8.3-10.6); CREATININE FOR GFR 1.77 MG/DL (0.70-1.30); GLOMERULAR FILTRATION RATE 40.2 (>42); MAGNESIUM LEVEL 1.4 MG/DL (1.8-2.4); POTASSIUM SERUM 3.5 MMOL/L (3.5-5.1); TOTAL PROTEIN 6.7 G/DL (5.7-8.2)
[2022-07-29] MEDS: SODIUM CHLORIDE 0.9% INJ 10 ML SYR IV SCH ×2 (05:53→17:55)
[2022-07-29 07:05] VITALS: BP 126/60
[2022-07-29] MEDS: INSULIN LISPRO (NovoLOG) PER UNIT SC SCH ×4 (08:17→20:54)
[2022-07-29] MEDS: SERTRALINE 100 MG TAB PO SCH (08:19)
[2022-07-29] MEDS: ASPIRIN 81MG CHEW TABLET PO SCH (08:19)
[2022-07-29] MEDS: DIGOXIN 0.125 MG TAB PO SCH (08:19)
[2022-07-29] MEDS: SILVER SULFADIAZINE 1% CR 50 GM JAR TOP SCH (08:20)
[2022-07-29] MEDS: PANTOPRAZOLE 40MG VIAL IV SCH (08:20)
[2022-07-29] MEDS: POTASSIUM CHLORIDE 10MEQ SR TABLET PO SCH ×3 (09:51→20:53)
[2022-07-29] MEDS: ACETAMINOPHEN TAB 650MG DOSE (2X325MG) PO PRN (09:59)
[2022-07-29 11:18] LABS: HEMATOCRIT 37.3 % (42.0-52.0); HEMOGLOBIN 11.9 g/dl (13.5-17.5); MEAN CORPUSCULAR HEMOGLOBIN 29.1 pg (27.0-33.0); MEAN CORPUSCULAR HGB CONC 31.9 g/dl (32.0-36.5); MEAN CORPUSCULAR VOLUME 91.2 fl (80.0-96.0); PLATELET COUNT, AUTOMATED 296 10^3/uL (150-450); RED BLOOD COUNT 4.09 10^6/uL (4.30-6.10); WHITE BLOOD COUNT 13.6 10^3/uL (4.0-10.0)
[2022-07-29 11:45] VITALS: BP 123/67
[2022-07-29 15:30] VITALS: BP 114/65
[2022-07-29] MEDS: TAMSULOSIN 0.4 MG CAP PO SCH (20:53)
[2022-07-29] MEDS: FINASTERIDE 5MG TAB PO SCH (20:53)
[2022-07-29 21:50] LABS: INR 1.26; PROTHROMBIN TIME 16.1 SECONDS (12.5-14.5)
[2022-07-29 22:52] LABS: PARTIAL THROMBOPLASTIN TIME 176.8 SECONDS (24.8-34.2)
[2022-07-30] VITALS (9 sets, daily range): BP systolic 108–147; BP diastolic 59–98
[2022-07-30] MEDS: METOPROLOL TART 25 MG TABLET PO SCH ×5 (00:52→23:27)
[2022-07-30] MEDS: SODIUM CHLORIDE 0.9% INJ 10 ML SYR IV SCH ×2 (06:00→17:33)
[2022-07-30] MEDS: FUROSEMIDE injection 250 MG in D5W 225 ML IV SCH (06:15)
[2022-07-30 07:21] LABS: BASO # 0.1 10^3/uL (0.0-0.2); BASO % 0.6 % (0.0-1.0); EOS # 0.3 10^3/uL (0.0-0.5); EOS % 2.2 % (0.0-3.0); HEMATOCRIT 39.6 % (42.0-52.0); HEMOGLOBIN 12.8 g/dl (13.5-17.5); LYMPH # 1.7 10^3/uL (1.5-5.0); LYMPH % 13.5 % (24.0-44.0); MEAN CORPUSCULAR HEMOGLOBIN 29.6 pg (27.0-33.0); MEAN CORPUSCULAR HGB CONC 32.3 g/dl (32.0-36.5); MEAN CORPUSCULAR VOLUME 91.7 fl (80.0-96.0); MONO % 8.2 % (2.0-8.0); NEUTROPHILS # 9.2 10^3/uL (1.5-8.5); NEUTROPHILS % 74.8 % (36.0-66.0); PLATELET COUNT, AUTOMATED 287 10^3/uL (150-450); RED BLOOD COUNT 4.32 10^6/uL (4.30-6.10); WHITE BLOOD COUNT 12.3 10^3/uL (4.0-10.0)
[2022-07-30 07:51] LABS: DIGOXIN LEVEL 1.3 NG/ML (0.8-2.0)
[2022-07-30 07:53] LABS: ALBUMIN 2.7 G/DL (3.2-5.2); BILIRUBIN,TOTAL 0.6 MG/DL (0.3-1.2); CALCIUM LEVEL 8.9 MG/DL (8.3-10.6); CREATININE FOR GFR 1.91 MG/DL (0.70-1.30); GLOMERULAR FILTRATION RATE 36.9 (>42); MAGNESIUM LEVEL 1.3 MG/DL (1.8-2.4); POTASSIUM SERUM 4.4 MMOL/L (3.5-5.1); TOTAL PROTEIN 6.6 G/DL (5.7-8.2)
[2022-07-30] MEDS: INSULIN LISPRO (NovoLOG) PER UNIT SC SCH ×4 (08:59→21:00)
[2022-07-30] MEDS: PANTOPRAZOLE 40MG VIAL IV SCH (09:00)
[2022-07-30] MEDS: ASPIRIN 81MG CHEW TABLET PO SCH (09:00)
[2022-07-30] MEDS: DIGOXIN 0.125 MG TAB PO SCH (09:00)
[2022-07-30] MEDS: SERTRALINE 100 MG TAB PO SCH (09:00)
[2022-07-30] MEDS: SILVER SULFADIAZINE 1% CR 50 GM JAR TOP SCH (09:01)
[2022-07-30] MEDS: SODIUM CHLORIDE 0.9% INJ 10 ML SYR IV PRN (09:12)
[2022-07-30] MEDS ORDERED: METOPROLOL TART 25 MG TABLET PO ONE (12:00)
[2022-07-30] MEDS: ACETAMINOPHEN TAB 650MG DOSE (2X325MG) PO PRN (13:43)
[2022-07-30] MEDS: MAG SULF 1GM/100ML (MAG RUN) 1 GM in IV 1 EA IV SCH ×4 (14:18→18:28)
[2022-07-30 14:48] LABS: INR 1.18; PROTHROMBIN TIME 15.3 SECONDS (12.5-14.5)
[2022-07-30 14:49] LABS: PARTIAL THROMBOPLASTIN TIME 44.3 SECONDS (24.8-34.2)
[2022-07-30 14:52] LABS: ABG HCO3 29.6 MMOL/L (22.0-26.0); ABG O2 SATURATION 93.8 % (95.0-99.0); ABG STANDARD HCO3 30.8 MMOL/L. (22.0-26.0); ABG TOTAL CO2 30.7 MMOL/L (23.0-31.0); ABG pH (ARTERIAL) 7.545 UNITS (7.350-7.450)
[2022-07-30] MEDS ORDERED: ONDANSETRON 4MG ORAL DISINTEGRATING TAB SL PRN (15:05)
[2022-07-30] MEDS: HEPARIN DRIP 25,000 UNITS in IV 1 EA IV SCH (15:35)
[2022-07-30 20:34] LABS: INR 1.15; PROTHROMBIN TIME 14.9 SECONDS (12.5-14.5)
[2022-07-30 20:35] LABS: PARTIAL THROMBOPLASTIN TIME 59.1 SECONDS (24.8-34.2)
[2022-07-30] MEDS: TAMSULOSIN 0.4 MG CAP PO SCH (21:00)
[2022-07-30] MEDS: FINASTERIDE 5MG TAB PO SCH (21:00)
[2022-07-30 21:26] LABS: ABG BASE EXCESS 7.9 (-2.0-2.0); ABG HCO3 36.9 MMOL/L (22.0-26.0); ABG O2 SATURATION 96.3 % (95.0-99.0); ABG PARTIAL PRESSURE O2 95.1 mmHg (75.0-100.0); ABG STANDARD HCO3 31.7 MMOL/L. (22.0-26.0); ABG TOTAL CO2 39.2 MMOL/L (23.0-31.0); ABG pH (ARTERIAL) 7.315 UNITS (7.350-7.450)
[2022-07-30 21:28] LABS: ABG PARTIAL PRESSURE CO2 74.2 mmHg (35.0-45.0)
[2022-07-30 22:15] LABS: CALCIUM LEVEL 8.8 MG/DL (8.3-10.6); CREATININE FOR GFR 2.42 MG/DL (0.70-1.30); MAGNESIUM LEVEL 2.3 MG/DL (1.8-2.4); POTASSIUM SERUM 4.4 MMOL/L (3.5-5.1)
[2022-07-31] VITALS (9 sets, daily range): BP systolic 121–150; BP diastolic 63–80
[2022-07-31 00:09] LABS: ABG BASE EXCESS 1.8 (-2.0-2.0); ABG HCO3 27.9 MMOL/L (22.0-26.0); ABG O2 SATURATION 98.9 % (95.0-99.0); ABG PARTIAL PRESSURE O2 148.4 mmHg (75.0-100.0); ABG STANDARD HCO3 26.1 MMOL/L. (22.0-26.0); ABG TOTAL CO2 29.5 MMOL/L (23.0-31.0); ABG pH (ARTERIAL) 7.365 UNITS (7.350-7.450)
[2022-07-31 04:55] LABS: BASO # 0.1 10^3/uL (0.0-0.2); BASO % 0.7 % (0.0-1.0); EOS # 0.3 10^3/uL (0.0-0.5); EOS % 1.8 % (0.0-3.0); HEMATOCRIT 43.3 % (42.0-52.0); HEMOGLOBIN 13.3 g/dl (13.5-17.5); LYMPH % 12.9 % (24.0-44.0); MEAN CORPUSCULAR HEMOGLOBIN 29.1 pg (27.0-33.0); MEAN CORPUSCULAR HGB CONC 30.7 g/dl (32.0-36.5); MEAN CORPUSCULAR VOLUME 94.7 fl (80.0-96.0); MONO # 1.3 10^3/uL (0.0-0.8); MONO % 8.1 % (2.0-8.0); NEUTROPHILS # 11.8 10^3/uL (1.5-8.5); NEUTROPHILS % 75.1 % (36.0-66.0); PLATELET COUNT, AUTOMATED 349 10^3/uL (150-450); RED BLOOD COUNT 4.57 10^6/uL (4.30-6.10); WHITE BLOOD COUNT 15.7 10^3/uL (4.0-10.0)
[2022-07-31 05:11] LABS: INR 1.13; PROTHROMBIN TIME 14.7 SECONDS (12.5-14.5)
[2022-07-31 05:12] LABS: PARTIAL THROMBOPLASTIN TIME 62.3 SECONDS (24.8-34.2)
[2022-07-31 05:34] LABS: DIGOXIN LEVEL 1.8 NG/ML (0.8-2.0)
[2022-07-31 05:37] LABS: ALBUMIN 2.8 G/DL (3.2-5.2); BILIRUBIN,TOTAL 0.6 MG/DL (0.3-1.2); CALCIUM LEVEL 9.1 MG/DL (8.3-10.6); CREATININE FOR GFR 2.72 MG/DL (0.70-1.30); GLOMERULAR FILTRATION RATE 24.5 (>42); MAGNESIUM LEVEL 2.2 MG/DL (1.8-2.4); POTASSIUM SERUM 4.8 MMOL/L (3.5-5.1); TOTAL PROTEIN 7.3 G/DL (5.7-8.2)
[2022-07-31] MEDS: METOPROLOL TART 25 MG TABLET PO SCH (06:00)
[2022-07-31] MEDS: SODIUM CHLORIDE 0.9% INJ 10 ML SYR IV SCH ×2 (06:00→19:11)
[2022-07-31] MEDS: ASPIRIN 81MG CHEW TABLET PO SCH (09:00)
[2022-07-31] MEDS: SERTRALINE 100 MG TAB PO SCH (09:00)
[2022-07-31] MEDS: SILVER SULFADIAZINE 1% CR 50 GM JAR TOP SCH (09:00)
[2022-07-31] MEDS ORDERED: NS 1,000 ML IV SCH (09:05)
[2022-07-31] MEDS: PANTOPRAZOLE 40MG VIAL IV SCH (09:06)
[2022-07-31] MEDS: INSULIN LISPRO (NovoLOG) PER UNIT SC SCH (09:06)
[2022-07-31] MEDS ORDERED: LORazepam 2 MG/ML 1ML VIAL IV PRN (10:15)
[2022-07-31] MEDS ORDERED: SCOPOLAMINE 1MG TRANSDERMAL PATCH TOP PRN (10:15)
[2022-07-31] MEDS: MORPHINE 10MG/0.5ML ORAL CONCENTRATE SOLUTION U/D SL PRN (16:56)
[2022-08-01] MEDS: SODIUM CHLORIDE 0.9% INJ 10 ML SYR IV SCH ×2 (05:48→17:34)
[2022-08-01] MEDS: SODIUM CHLORIDE 0.9% INJ 10 ML SYR IV PRN (05:48)
[2022-08-02] MEDS: SODIUM CHLORIDE 0.9% INJ 10 ML SYR IV SCH ×2 (04:33→17:33)
[2022-08-02] MEDS: MORPHINE 10MG/0.5ML ORAL CONCENTRATE SOLUTION U/D SL PRN (17:58)
[2022-08-03] MEDS: MORPHINE 10MG/0.5ML ORAL CONCENTRATE SOLUTION U/D SL PRN ×2 (02:03→15:10)
[2022-08-03] MEDS: SODIUM CHLORIDE 0.9% INJ 10 ML SYR IV SCH ×2 (05:43→17:27)
[2022-08-03] MEDS: SODIUM CHLORIDE 0.9% INJ 10 ML SYR IV PRN (05:44)
[2022-08-03] MEDS: NYSTATIN 100,000 UNITS/GM TOPICAL PWD 15GM TOP SCH ×2 (13:17→21:00)
[2022-08-04] MEDS: SODIUM CHLORIDE 0.9% INJ 10 ML SYR IV SCH ×2 (05:08→17:59)
[2022-08-04] MEDS: SODIUM CHLORIDE 0.9% INJ 10 ML SYR IV PRN (05:09)
[2022-08-04] MEDS: NYSTATIN 100,000 UNITS/GM TOPICAL PWD 15GM TOP SCH ×2 (08:24→21:00)
[2022-08-04] MEDS: MORPHINE 10MG/0.5ML ORAL CONCENTRATE SOLUTION U/D SL PRN (14:18)
[2022-08-05] MEDS: MORPHINE 10MG/0.5ML ORAL CONCENTRATE SOLUTION U/D SL PRN ×3 (05:36→22:29)
[2022-08-05] MEDS: SODIUM CHLORIDE 0.9% INJ 10 ML SYR IV SCH ×2 (05:37→17:45)
[2022-08-05] MEDS: NYSTATIN 100,000 UNITS/GM TOPICAL PWD 15GM TOP SCH ×2 (08:05→21:00)
[2022-08-05] MEDS: SODIUM CHLORIDE 0.9% INJ 10 ML SYR IV PRN (17:45)
[2022-08-06] MEDS: SODIUM CHLORIDE 0.9% INJ 10 ML SYR IV SCH (06:22)
[2022-08-06] MEDS: MORPHINE 10MG/0.5ML ORAL CONCENTRATE SOLUTION U/D SL PRN ×5 (06:32→21:30)
[2022-08-06] MEDS: NYSTATIN 100,000 UNITS/GM TOPICAL PWD 15GM TOP SCH ×2 (08:06→21:00)
[2022-08-06] MEDS: LORazepam 2 MG TAB PO PRN ×2 (16:17→18:54)
[2022-08-06] MEDS ORDERED: LORazepam 2 MG/ML 1ML VIAL IV PRN (20:50)
[2022-08-06] MEDS ORDERED: LORazepam 1 MG TAB PO ONE (22:50)
== END 2022-08-07 00:30 | disposition expired | DRG 871 ==
LOC: M ED 00:20 → EEVIPCON 05:19 → M ED INP 05:19 → ENRESERV 06:14 → M MSPAV 06:39 → M ICU 12:23 → M MSPAV 07-23 11:25 → M PCU 07-26 09:20 → M ICU 07-30 22:37 → M MS5PR 08-01 06:43
PROVIDERS: ADMIT Family Medicine; ATTEND Student in an Organized Health Care Education/Training Program
PROC: 02HV33Z Insertion of Infusion Device into Superior Vena Cava, Percutaneous Approach (ICD-10-PCS; principal; 2022-07-28 12:00)
DX: A41.9 Sepsis, unspecified organism (principal); G93.41 Metabolic encephalopathy; J96.22 Acute and chronic respiratory failure with hypercapnia; I50.21 Acute systolic (congestive) heart failure; J96.21 Acute and chronic respiratory failure with hypoxia; K80.00 Calculus of gallbladder with acute cholecystitis without obstruction; N17.9 Acute kidney failure, unspecified; I48.20 Chronic atrial fibrillation, unspecified; E87.29 Other acidosis; E66.2 Morbid (severe) obesity with alveolar hypoventilation; Z68.41 Body mass index [BMI] 40.0-44.9, adult; I51.81 Takotsubo syndrome; E87.3 Alkalosis; R57.0 Cardiogenic shock; R65.20 Severe sepsis without septic shock; J44.9 Chronic obstructive pulmonary disease, unspecified; K74.60 Unspecified cirrhosis of liver; I12.9 Hypertensive chronic kidney disease with stage 1 through stage 4 chronic kidney disease, or unspecified chronic kidney disease; N18.9 Chronic kidney disease, unspecified; E78.5 Hyperlipidemia, unspecified; N20.0 Calculus of kidney; N40.0 Benign prostatic hyperplasia without lower urinary tract symptoms; E11.22 Type 2 diabetes mellitus with diabetic chronic kidney disease; E11.40 Type 2 diabetes mellitus with diabetic neuropathy, unspecified; N18.30 Chronic kidney disease, stage 3 unspecified; I25.10 Atherosclerotic heart disease of native coronary artery without angina pectoris; E83.42 Hypomagnesemia; I27.20 Pulmonary hypertension, unspecified; G47.33 Obstructive sleep apnea (adult) (pediatric); Z86.711 Personal history of pulmonary embolism; Z86.73 Personal history of transient ischemic attack (TIA), and cerebral infarction without residual deficits; Z85.038 Personal history of other malignant neoplasm of large intestine; Z79.899 Other long term (current) drug therapy; Z79.4 Long term (current) use of insulin